=== PATIENT | female | born 1990 | race Caucasian/White ===

== ENCOUNTER 2021-05-15 15:48 | Inpatient (IN) ==
[2021-05-15] MEDS ORDERED: OXYTOCIN 30 UNITS/500 ML BAG IV PRN (16:55)
[2021-05-15 17:21] LABS: Hematocrit (blood only) 35.9 % (37-47); Hemoglobin 12.5 g/dL (12.0-16.0); Mean Corpuscular Hemoglobin 31.1 pg (25-34); Mean Corpuscular Hgb Conc 34.8 g/dL (32-36); Mean Corpuscular Volume 89.3 fL (80-100); Mean Platelet Volume 10.7 fL (7.4-10.4); Platelet Count 311 K/uL (130-400); RDW Coefficient of Variation 12.2 % (11.5-14.5); RDW Standard Deviation 39.3 fL (36.4-46.3); Red Blood Count 4.02 M/uL (4.2-5.4); White Blood Count 11.64 K/uL (4.8-10.8)
[2021-05-15 17:31] LABS: INR 0.9 (0.9-1.1); Prothrombin Time 8.9 Seconds (9.0-12.0)
[2021-05-15 17:39] LABS: Alanine Aminotransferase 324 (12-78); Albumin Level 2.2 gm/dl (3.4-5.0); Aspartate Aminotransferase 201 U/L (15-37); BUN Creatinine Ratio 9.4 (10-20); Blood Urea Nitrogen 5 mg/dl (7-18); Calcium 8.3 mg/dl (8.5-10.1); Carbon Dioxide 20 mmol/L (21-32); Chloride 110 mmol/L (98-107); Glucose 97 mg/dl (70-99); Potassium 3.5 mmol/L (3.5-5.1); Sodium 138 mmol/L (136-145)
[2021-05-15 17:42] LABS: Albumin Globulin Ratio 0.5 (0.9-2); Alkaline Phosphatase 243 U/L (45-117); Globulin 4.3 gm/dl (2.5-4.0); Total Protein 6.5 gm/dl (6.4-8.2)
[2021-05-15 18:22] LABS: Bilirubin,Total 0.5 mg/dl (0.2-1)
--- NOTE | 2021-05-15 19:45 | Ultrasound Report ---
US liver CLINICAL HISTORY: elevated liver enzymes in COMPARISON STUDY: No previous studies for comparison. TECHNIQUE: Sonography of the right upper quadrant was performed. FINDINGS: No hepatic lesions are identified. There is no biliary ductal dilatation. The common bile d uct measures 4 mm in caliber. Gallbladder is contracted. This likely accounts for mild gallbladder wa ll thickening. No gallstones are identified. There is no evidence for acute cholecystitis. No sonogra phic Dodge sign was elicited. Pancreas is obscured. There is mild right hydronephrosis. IMPRESSION: 1. No gallstones or biliary ductal dilatation. Contracted gallbladder. 2. Mild right hydronephrosis which may be due to mass effect upon the ureter by the gravid uterus. 3. Obscured pancreas. ACT 112: Negative or not required by law. Electronically signed by: Varun Jessica M.D. 05/15/2021 7:44 PM
[2021-05-15] MEDS ORDERED: diphenhydrAMINE Capsule 25 MG CAP PO PRN (20:48)
--- NOTE | 2021-05-15 21:07 | History & Physical Report ---
Date of Service May 15, 2021 Assessment & Plan (1) Intrahepatic cholestasis of : Plan: Repeat CMP, will check CBC, PT/PTT/INR. Liver ultrasound to r/o liver pathology is normal. However, due to patient's symptomatic presentation with itching and her normal BP, platelets and glucose, ICP is most likely diagnosis. Patient is agreeable to IOL. Pearson bulb placed, insufflated to 35cc sterile water. Tolerated well. Patient agreeable to pitocin with pearson, however at this time due to nursing staffing unable to start this - will start as soon as able tonight. Admission and Anticipated Discharge Date Admission Date: May 15, 2021 History of Present Illness Chief Complaint: itching Primary Care Provider: Ascencion Berry DO 31yo @ 39 08/30, presented to office today with itching "all over," underwent lab testing and was found to have elevated liver enzymes. No further symptoms - denies HURST, RUQ pain, LE edema, nausea, vomiting. Eating/drinking well. + movement, no vaginal bleeding, no leaking fluid. Allergies Allergy/AdvReac Type Severity Reaction Status Date / Time No Known Allergies Allergy Verified 05/15/21 10:55 Home Medications Medication Instructions Recorded Confirmed Type mecobalamin (vitamin B12) PO 10/16/20 05/15/21 History prenat.vits,kemi,[id number] 1 tab PO DAILY 10/16/20 05/15/21 History sertraline 50 mg tablet (Zoloft) 50 mg PO DAILY 10/16/20 05/15/21 History Patient History Medical History (Updated 05/15/21 @ 21:10 by Alyson Silverio DO) Depression Surgical History (Updated 10/16/20 @ 13:12 by Marla Soliman) S/P tonsillectomy Family History (Updated 10/16/20 @ 13:07 by Marla Soliman) Mother Thyroid disease Grandfather (Paternal) Colorectal cancer Social History (Updated 10/16/20 @ 13:09 by Marla Soliman) Smoking Status: Never smoker Hx Alcohol Use: No Hx Substance Use: No Preferred Language: Cook Islander Brass [employer]isher Required: No Beliefs That Will Affect Care: None marital status: marital status details: Raymon (37) [phone] Current Living Situation: Spouse Current Living Situation Comment: lives with spouse, 2 cats, some reptiles, spouse to change litter current occupational status: employed 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 No s/s chorio or abruption. Skin: no rashes, warm and dry Psychiatric: A+Ox3, euthymic affect Results & Data ([facility]) Vital Signs (Past 12 Hours) Vital Signs Temp Pulse Resp BP 05/15/21 19:02 36.9 C 81 18 123/75 05/15/21 16:59 37.3 C 18 05/15/21 16:17 83 128/83 Coding Level of Care Code None Diagnoses Intrahepatic cholestasis of O26.619; K83.1
[2021-05-16] MEDS ORDERED: OXYTOCIN 30 UNITS/500 ML BAG IV PRN (00:30)
[2021-05-16] MEDS: LACTATED RINGER'S 1,000 ML IV PRN ×5 (01:08→22:11)
[2021-05-16 06:22] LABS: Hematocrit (blood only) 33.9 % (37-47); Hemoglobin 11.6 g/dL (12.0-16.0); Mean Corpuscular Hemoglobin 30.9 pg (25-34); Mean Corpuscular Hgb Conc 34.2 g/dL (32-36); Mean Corpuscular Volume 90.2 fL (80-100); Mean Platelet Volume 10.6 fL (7.4-10.4); Platelet Count 318 K/uL (130-400); RDW Coefficient of Variation 12.4 % (11.5-14.5); RDW Standard Deviation 40.6 fL (36.4-46.3); Red Blood Count 3.76 M/uL (4.2-5.4); White Blood Count 11.89 K/uL (4.8-10.8)
[2021-05-16 06:52] LABS: Albumin Level 2.3 gm/dl (3.4-5.0); BUN Creatinine Ratio 9.3 (10-20); Calcium 8.8 mg/dl (8.5-10.1); Creatinine Clr Calc Pharmacy 201.5 ml/min; Est GFR (Non-African American) 122.5 ml/min; Potassium 3.6 mmol/L (3.5-5.1)
[2021-05-16 06:55] LABS: Albumin Globulin Ratio 0.5 (0.9-2); Bilirubin,Total 0.8 mg/dl (0.2-1); Globulin 4.2 gm/dl (2.5-4.0); Total Protein 6.5 gm/dl (6.4-8.2)
--- NOTE | 2021-05-16 07:35 | Labor Progress Brief Note ---
Date of Service May 16, 2021 Subjective Ramos bulb fell out overnight. FHT Cat 1 Kaser Q 2-3 Continue pitocin. Repeat CBC/CMP this morning show elevated LFTs continuing - slightly higher than yesterday. Assessment & Plan Admission and Anticipated Discharge Date Admission Date: May 15, 2021 Results & Data ([facility]) Vital Signs (Past 12 Hours) Vital Signs Temp Pulse Resp BP 05/16/21 07:12 55 L 135/77 05/16/21 06:11 62 115/66 05/16/21 05:11 62 127/73 05/16/21 04:11 65 136/78 05/16/21 03:13 65 124/79 05/16/21 02:11 64 130/73 05/16/21 01:11 68 125/69 05/15/21 22:49 36.8 C 77 18 124/70 Coding Level of Care Code None
[2021-05-16] MEDS ORDERED: CALCIUM CARBONATE 500 MG CHEWABLE TAB PO PRN (09:17)
--- NOTE | 2021-05-16 09:40 | Labor Progress Brief Note ---
Date of Service May 16, 2021 Subjective noting contractions but tolerating. Assessment & Plan (1) Intrahepatic cholestasis of : (2) Elevated transaminase level: Plan: LFTs elevated slightly more this am. She remains asymptomatic from pet standpoint. NOtes her itching is improved. Fetus category one. Discussion with Dr. Silverio this am and plan to order hepatitis panel to r/o. No contacts and no s/s but for completeness sake. Plan arom when appropriate. Admission and Anticipated Discharge Date Admission Date: May 15, 2021 Physical Exam Physical Exam: cx--deferred toco--q3-4min, pit at 8 efm--120s with mod varibility, accels to 150s, no decels Results & Data ([facility]) Vital Signs (Past 12 Hours) Vital Signs Temp Pulse Resp BP 05/16/21 09:09 99 H 131/79 05/16/21 08:11 72 130/80 05/16/21 07:52 68 137/75 05/16/21 07:45 69 20 137/75 05/16/21 07:30 36.7 C 55 L 18 135/77 05/16/21 07:12 55 L 135/77 05/16/21 06:11 62 115/66 05/16/21 05:11 62 127/73 05/16/21 04:11 65 136/78 05/16/21 03:13 65 124/79 05/16/21 02:11 64 130/73 05/16/21 01:11 68 125/69 05/15/21 22:49 36.8 C 77 18 124/70 Coding Level of Care Code None Diagnoses Intrahepatic cholestasis of O26.619; K83.1 Elevated transaminase level R74.01
[2021-05-16 11:38] LABS: Hepatitis B Surf Ag Rflx Conf Neg (Neg)
[2021-05-16 12:06] LABS: Hepatitis C IgG 13Yrs+Old_Rflx Neg (Neg)
--- NOTE | 2021-05-16 12:20 | Labor Progress Brief Note ---
Date of Service May 16, 2021 Subjective noting contractions but not painful Assessment & Plan (1) Elevated transaminase level: (2) Intrahepatic cholestasis of : Plan: continue current management. fetus category one. epidural on demand. anticipate . Admission and Anticipated Discharge Date Admission Date: May 15, 2021 Physical Exam Physical Exam: cx--75/-2 arom--minimal old blood and clear fluid [id number], pit at 14 wfm--130s with mod variaiblity, accels to 170s, no decels Results & Data ([facility]) Vital Signs (Past 12 Hours) Vital Signs Temp Pulse Resp BP 05/16/21 11:56 82 136/72 05/16/21 11:30 18 05/16/21 11:26 80 133/62 05/16/21 10:56 86 133/80 05/16/21 10:55 36.9 C 81 18 134/80 05/16/21 10:48 81 134/80 05/16/21 10:26 81 136/95 05/16/21 10:01 61 18 122/76 05/16/21 09:55 75 122/76 05/16/21 09:15 99 H 18 131/79 05/16/21 09:09 99 H 18 131/79 05/16/21 08:45 72 18 05/16/21 08:15 72 18 130/80 05/16/21 08:11 72 130/80 05/16/21 07:52 68 137/75 05/16/21 07:45 69 20 137/75 05/16/21 07:30 36.7 C 55 L 18 135/77 05/16/21 07:15 36.7 C 55 L 18 135/77 05/16/21 07:12 55 L 135/77 05/16/21 06:11 62 115/66 05/16/21 05:11 62 127/73 05/16/21 04:11 65 136/78 05/16/21 03:13 65 124/79 05/16/21 02:11 64 130/73 05/16/21 01:11 68 125/69 Coding Level of Care Code None Diagnoses Elevated transaminase level R74.01 Intrahepatic cholestasis of O26.619; K83.1
[2021-05-16] MEDS ORDERED: fentaNYL 2MCG/ML ROPIVACAINE 1.25MG/ML 100 ML BAG EPI ONE (14:02)
[2021-05-16] MEDS ORDERED: BUPIVACAINE 0.25% 30 ML VIAL ONE (14:02)
[2021-05-16] MEDS ORDERED: ePHEDrine sulfate 50 MG/ML AMP ONE (14:02)
[2021-05-16] MEDS ORDERED: fentaNYL citrate 100 MCG/2 ML VIAL ONE (14:02)
[2021-05-16] MEDS ORDERED: SODIUM CHLORIDE 0.9% INJ 10 ML VIAL ONE (14:02)
--- NOTE | 2021-05-16 14:28 | Anesthesiology Consultation ---
Date of Service May 16, 2021 Assessment & Plan (1) Encounter for pre-operative examination: Chart Review Chart Review: Acceptable Risk for Labor Epidural History Height/Weight Height: 5 ft 10 in Weight: 131.696 kg Allergies Allergy/AdvReac Type Severity Reaction Status Date / Time No Known Allergies Allergy Verified 05/15/21 10:55 Medications Home Medications Medication Instructions Recorded Confirmed Last Taken mecobalamin (vitamin B12) PO 10/16/20 05/15/21 05/15/21 08:00 prenat.vits,kemi,ggw-btee-ceywe 1 tab PO DAILY 10/16/20 05/15/21 05/15/21 08:00 sertraline 50 mg tablet (Zoloft) 50 mg PO DAILY 10/16/20 05/15/21 05/15/21 08:00 Active Medications Generic Name Dose Route Start Last Admin Trade Name Freq PRN Reason Stop Dose Admin Calcium Carbonate 500 mg 05/16/21 09:17 05/16/21 09:33 Calcium Carbonate 500 Mg Chewable Tab PO 06/15/21 09:16 500 mg Q4 PRN Administration Indigestion Lactated Ringer's 1,000 mls @ 125 mls/hr 05/15/21 16:55 05/16/21 14:12 Lr IV 05/17/21 16:54 999 mls/hr .Q8H PRN Administration L&D Protocol Protocol Oxytocin 30 units in 500 mls @ 12 mls/hr 05/16/21 00:30 05/16/21 10:45 Pitocin IV 05/18/21 00:29 0.72 units/hr .Q24H PRN 12 mls/hr Labor Induction/Augmentation Titration Protocol 0.72 UNITS/HR Past Medical History Medical History Depression Past Family History Family History Mother Thyroid disease Grandfather (Paternal) Colorectal cancer Past Surgical History Surgical History S/P tonsillectomy Social History Smoking Status: Never smoker Hx Alcohol Use: No Hx Substance Use: No substance use type: does not use Physical Exam Vital Signs Last Vital Signs Temp 36.9 C 05/16/21 10:55 Pulse 84 05/16/21 14:23 Resp 18 05/16/21 13:27 BP 132/69 05/16/21 13:57 Pulse Ox 100 05/16/21 14:23 Testing Laboratory Results 05/16/21 05:58 05/16/21 05:58 PT 8.9 Seconds (9.0-12.0) L 05/15/21 17:09 INR 0.9 (0.9-1.1) 05/15/21 17:09
[2021-05-16] MEDS ORDERED: NALOXONE HCL 0.4 MG/1 ML VIAL/CARP IV PRN (15:07)
[2021-05-16] MEDS ORDERED: ONDANSETRON INJ 2 MG/ML 2 ML VIAL IV PRN (15:07)
[2021-05-16] MEDS ORDERED: ePHEDrine sulfate 50 MG/ML AMP IV PRN (15:07)
[2021-05-16] MEDS ORDERED: NALOXONE HCL 1 MG in SODIUM CHLORIDE 0.9% 1000ML 1,000 ML IV PRN (15:07)
[2021-05-16] MEDS ORDERED: fentaNYL 2MCG/ML ROPIVACAINE 1.25MG/ML 100 ML BAG EPI PRN (15:07)
--- NOTE | 2021-05-16 17:59 | Labor Progress Brief Note ---
Date of Service May 16, 2021 Subjective Got painful and got redosed. comfortable Assessment & Plan (1) Intrahepatic cholestasis of : (2) Elevated transaminase level: Plan: hopefully on the edge of active labor. iupc placed. fetus category one. continue current management. Admission and Anticipated Discharge Date Admission Date: May 15, 2021 Physical Exam Physical Exam: cx--5-6/90/-2 iupc placed toco--2-4min, pit at 18 efm--130s with mod variability, accels to 150s, no decels Results & Data ([facility]) Vital Signs (Past 12 Hours) Vital Signs Temp Pulse Resp BP Pulse Ox 05/16/21 17:53 90 100 05/16/21 17:49 99 H 118/68 05/16/21 17:48 109 H 100 05/16/21 17:43 92 H 99 05/16/21 17:38 87 118/62 100 05/16/21 17:33 105 H 117/61 100 05/16/21 17:31 88 118/62 05/16/21 17:28 102 H 118/61 100 05/16/21 17:23 91 H 118/62 100 05/16/21 17:18 84 100 05/16/21 17:13 95 H 110/62 99 05/16/21 17:08 96 H 99 05/16/21 17:03 89 100 05/16/21 16:59 94 H 115/66 05/16/21 16:58 89 99 05/16/21 16:48 92 H 100 05/16/21 16:43 88 109/65 100 05/16/21 16:39 88 116/68 05/16/21 16:38 92 H 99 05/16/21 16:33 81 100 05/16/21 16:28 94 H 99 05/16/21 16:23 84 99 05/16/21 16:18 98 H 100 05/16/21 16:13 85 129/62 100 05/16/21 16:10 81 18 122/63 100 05/16/21 16:08 88 122/63 100 05/16/21 16:03 74 99 05/16/21 16:02 36.3 C L 91 H 20 127/69 100 05/16/21 15:58 91 H 100 05/16/21 15:57 75 123/65 05/16/21 15:53 96 H 99 05/16/21 15:52 77 123/64 05/16/21 15:48 89 98 05/16/21 15:47 79 126/64 05/16/21 15:45 73 128/65 05/16/21 15:43 82 100 05/16/21 15:38 75 99 05/16/21 15:37 93 H 126/67 05/16/21 15:33 78 126/66 100 05/16/21 15:28 78 100 05/16/21 15:25 89 118/67 05/16/21 15:23 80 115/63 100 05/16/21 15:21 80 112/60 05/16/21 15:19 84 121/64 05/16/21 15:18 84 100 05/16/21 15:17 83 118/62 05/16/21 15:15 79 115/58 L 05/16/21 15:13 80 118/57 L 100 05/16/21 15:11 82 117/59 L 05/16/21 15:09 79 120/62 05/16/21 15:08 83 100 05/16/21 15:07 78 125/65 05/16/21 15:06 79 18 124/63 100 05/16/21 15:05 79 124/63 05/16/21 15:03 74 100 05/16/21 15:02 75 126/65 05/16/21 15:00 18 05/16/21 14:58 81 100 05/16/21 14:56 75 144/90 H 05/16/21 14:53 110 H 100 05/16/21 14:48 77 100 05/16/21 14:43 91 H 100 05/16/21 14:38 76 100 05/16/21 14:33 78 100 05/16/21 14:29 79 135/74 05/16/21 14:28 86 100 05/16/21 14:23 84 100 05/16/21 14:18 86 100 05/16/21 13:57 68 132/69 05/16/21 13:27 18 05/16/21 13:26 76 145/75 H 05/16/21 13:25 20 05/16/21 13:00 18 05/16/21 12:57 69 136/68 05/16/21 12:26 58 L 18 133/76 05/16/21 11:56 82 136/72 05/16/21 11:30 18 05/16/21 11:26 80 133/62 05/16/21 10:56 86 133/80 05/16/21 10:55 36.9 C 81 18 134/80 05/16/21 10:48 81 134/80 05/16/21 10:26 81 136/95 05/16/21 10:01 61 18 122/76 05/16/21 09:55 75 122/76 05/16/21 09:15 99 H 18 131/79 05/16/21 09:09 99 H 18 131/79 05/16/21 08:45 72 18 05/16/21 08:15 72 18 130/80 05/16/21 08:11 72 130/80 05/16/21 07:52 68 137/75 05/16/21 07:45 69 20 137/75 05/16/21 07:30 36.7 C 55 L 18 135/77 05/16/21 07:15 36.7 C 55 L 18 135/77 05/16/21 07:12 55 L 135/77 05/16/21 06:11 62 115/66 Coding Level of Care Code None Diagnoses Intrahepatic cholestasis of O26.619; K83.1 Elevated transaminase level R74.01
[2021-05-16 18:16] LABS: Hematocrit (blood only) 39.4 % (37-47); Hemoglobin 13.6 g/dL (12.0-16.0); Mean Corpuscular Hgb Conc 34.5 g/dL (32-36); Mean Corpuscular Volume 89.7 fL (80-100); Mean Platelet Volume 10.7 fL (7.4-10.4); Platelet Count 324 K/uL (130-400); RDW Coefficient of Variation 12.3 % (11.5-14.5); RDW Standard Deviation 39.8 fL (36.4-46.3); Red Blood Count 4.39 M/uL (4.2-5.4); White Blood Count 18.47 K/uL (4.8-10.8)
[2021-05-16 18:33] LABS: Albumin Level 2.3 gm/dl (3.4-5.0); BUN Creatinine Ratio 7.4 (10-20); Calcium 8.9 mg/dl (8.5-10.1); Creatinine Clr Calc Pharmacy 175.6 ml/min; Est GFR (African American) 135.7 ml/min; Est GFR (Non-African American) 117.1 ml/min; Potassium 3.8 mmol/L (3.5-5.1)
[2021-05-16 18:36] LABS: Albumin Globulin Ratio 0.5 (0.9-2); Bilirubin,Total 0.8 mg/dl (0.2-1); Globulin 4.5 gm/dl (2.5-4.0); Total Protein 6.8 gm/dl (6.4-8.2)
[2021-05-16] MEDS ORDERED: NURSING L&D Epidural Breakthrough Pain Update ONE (19:19)
--- NOTE | 2021-05-16 20:27 | Labor Progress Brief Note ---
Date of Service May 16, 2021 Subjective comfortable Assessment & Plan (1) Encounter for pre-operative examination: (2) Elevated transaminase level: Plan: continue current management. Has made a bit of cervical change. LFts are still going up . Bps are normal. All other labs are wnl. Will continue to monitor closely. fetus category one Admission and Anticipated Discharge Date Admission Date: May 15, 2021 Physical Exam Physical Exam: cx--6-7/100/-2 toco--q2-4min, pit at 18, mvus between 225-275 efm--130s with mod variability, accels to 160s, no decels Results & Data ([facility]) Vital Signs (Past 12 Hours) Vital Signs Temp Pulse Resp BP Pulse Ox 05/16/21 20:23 90 98 05/16/21 20:18 92 H 99 05/16/21 20:17 97 H 91 05/16/21 20:13 105 H 99 05/16/21 20:08 102 H 100 05/16/21 20:03 103 H 100 05/16/21 20:00 95 H 121/73 05/16/21 19:58 103 H 100 05/16/21 19:53 99 H 100 05/16/21 19:48 94 H 100 05/16/21 19:43 99 H 94 05/16/21 19:42 90 89 L 05/16/21 19:40 99 H 122/78 05/16/21 19:38 114 H 99 05/16/21 19:36 92 H 90 05/16/21 19:33 89 100 05/16/21 19:30 36.6 C 18 98 05/16/21 19:28 105 H 98 05/16/21 19:23 101 H 100 05/16/21 19:19 111 H 126/73 05/16/21 19:18 99 H 80 L 05/16/21 19:17 112 H 93 05/16/21 19:13 95 H 100 05/16/21 19:08 102 H 100 05/16/21 19:03 92 H 100 05/16/21 19:00 97 H 121/73 05/16/21 18:58 115 H 98 05/16/21 18:53 119 H 100 05/16/21 18:48 117 H 100 05/16/21 18:45 119 H 92 05/16/21 18:43 115 H 100 05/16/21 18:38 115 H 100 05/16/21 18:36 118 H 111/71 05/16/21 18:33 118 H 100 05/16/21 18:28 118 H 99 05/16/21 18:23 113 H 100 05/16/21 18:20 116 H 114/63 05/16/21 18:18 131 H 98 05/16/21 18:13 137 H 100 05/16/21 18:08 123 H 99 05/16/21 18:03 117 H 100 05/16/21 17:58 109 H 100 05/16/21 17:53 90 100 05/16/21 17:49 99 H 118/68 05/16/21 17:48 109 H 100 05/16/21 17:43 92 H 99 05/16/21 17:38 87 118/62 100 05/16/21 17:35 20 100 05/16/21 17:33 105 H 117/61 100 05/16/21 17:31 88 118/62 05/16/21 17:30 20 05/16/21 17:28 102 H 118/61 100 05/16/21 17:25 20 05/16/21 17:23 91 H 118/62 100 05/16/21 17:20 18 99 05/16/21 17:18 84 100 05/16/21 17:13 95 H 110/62 99 05/16/21 17:08 96 H 99 05/16/21 17:03 89 100 05/16/21 16:59 94 H 115/66 05/16/21 16:58 89 99 05/16/21 16:48 92 H 100 05/16/21 16:43 88 109/65 100 05/16/21 16:39 88 116/68 05/16/21 16:38 92 H 99 05/16/21 16:33 81 100 05/16/21 16:28 94 H 99 05/16/21 16:23 84 99 05/16/21 16:18 98 H 100 05/16/21 16:13 85 129/62 100 05/16/21 16:10 81 18 122/63 100 05/16/21 16:08 88 122/63 100 05/16/21 16:03 74 99 05/16/21 16:02 36.3 C L 91 H 20 127/69 100 05/16/21 15:58 91 H 100 05/16/21 15:57 75 123/65 05/16/21 15:53 96 H 99 05/16/21 15:52 77 123/64 05/16/21 15:48 89 98 05/16/21 15:47 79 126/64 05/16/21 15:45 73 128/65 05/16/21 15:43 82 100 05/16/21 15:38 75 99 05/16/21 15:37 93 H 126/67 05/16/21 15:33 78 126/66 100 05/16/21 15:28 78 100 05/16/21 15:25 89 118/67 05/16/21 15:23 80 115/63 100 05/16/21 15:21 80 112/60 05/16/21 15:19 84 121/64 05/16/21 15:18 84 100 05/16/21 15:17 83 118/62 05/16/21 15:15 79 115/58 L 05/16/21 15:13 80 118/57 L 100 05/16/21 15:11 82 117/59 L 05/16/21 15:09 79 120/62 05/16/21 15:08 83 100 05/16/21 15:07 78 125/65 05/16/21 15:06 79 18 124/63 100 05/16/21 15:05 79 124/63 05/16/21 15:03 74 100 05/16/21 15:02 75 126/65 05/16/21 15:00 18 05/16/21 14:58 81 100 05/16/21 14:56 75 144/90 H 05/16/21 14:53 110 H 100 05/16/21 14:48 77 100 05/16/21 14:43 91 H 100 05/16/21 14:38 76 100 05/16/21 14:33 78 100 05/16/21 14:29 79 135/74 05/16/21 14:28 86 100 05/16/21 14:23 84 100 05/16/21 14:18 86 100 05/16/21 13:57 68 132/69 05/16/21 13:27 18 05/16/21 13:26 76 145/75 H 05/16/21 13:25 20 05/16/21 13:00 18 05/16/21 12:57 69 136/68 05/16/21 12:26 58 L 18 133/76 05/16/21 11:56 82 136/72 05/16/21 11:30 18 05/16/21 11:26 80 133/62 05/16/21 10:56 86 133/80 05/16/21 10:55 36.9 C 81 18 134/80 05/16/21 10:48 81 134/80 05/16/21 10:26 81 136/95 05/16/21 10:01 61 18 122/76 05/16/21 09:55 75 122/76 05/16/21 09:15 99 H 18 131/79 05/16/21 09:09 99 H 18 131/79 05/16/21 08:45 72 18 Coding Level of Care Code None Diagnoses Encounter for pre-operative examination Z01.818 Elevated transaminase level R74.01
--- NOTE | 2021-05-16 21:28 | Labor Progress Brief Note ---
Date of Service May 16, 2021 Subjective Patient became suddenly uncomfortable again. anesthesia now in the room assessing the patient. Assessment & Plan (1) Encounter for pre-operative examination: (2) Elevated transaminase level: Plan: IN active labor. Will try to get pain under control. Fetus still reassuring. Admission and Anticipated Discharge Date Admission Date: May 15, 2021 Physical Exam Physical Exam: cx--9/100/-1 toco--q2-3min, mvus adequate efm--140s with mod variability, accels to 170s, no decels Results & Data ([facility]) Vital Signs (Past 12 Hours) Vital Signs Temp Pulse Resp BP Pulse Ox 05/16/21 21:24 115 H 134/94 05/16/21 21:23 125 H 99 05/16/21 21:18 129 H 145/90 H 97 05/16/21 21:13 130 H 100 05/16/21 21:08 88 100 05/16/21 21:03 90 100 05/16/21 21:01 116 H 173/109 H 05/16/21 20:58 96 H 99 05/16/21 20:53 93 H 100 05/16/21 20:48 85 100 05/16/21 20:43 82 100 05/16/21 20:39 83 134/83 05/16/21 20:38 96 H 100 05/16/21 20:33 89 100 05/16/21 20:28 83 100 05/16/21 20:26 86 92 05/16/21 20:23 90 98 05/16/21 20:18 92 H 99 05/16/21 20:17 97 H 91 05/16/21 20:13 105 H 99 05/16/21 20:08 102 H 100 05/16/21 20:03 103 H 100 05/16/21 20:00 95 H 121/73 05/16/21 19:58 103 H 100 05/16/21 19:53 99 H 100 05/16/21 19:48 94 H 100 05/16/21 19:43 99 H 94 05/16/21 19:42 90 89 L 05/16/21 19:40 99 H 122/78 05/16/21 19:38 114 H 99 05/16/21 19:36 92 H 90 05/16/21 19:33 89 100 05/16/21 19:30 36.6 C 18 98 05/16/21 19:28 105 H 98 05/16/21 19:23 101 H 100 05/16/21 19:19 111 H 126/73 05/16/21 19:18 99 H 80 L 05/16/21 19:17 112 H 93 05/16/21 19:13 95 H 100 05/16/21 19:08 102 H 100 05/16/21 19:03 92 H 100 05/16/21 19:00 97 H 121/73 05/16/21 18:58 115 H 98 05/16/21 18:53 119 H 100 05/16/21 18:48 117 H 100 05/16/21 18:45 119 H 92 05/16/21 18:43 115 H 100 05/16/21 18:38 115 H 100 05/16/21 18:36 118 H 111/71 05/16/21 18:33 118 H 100 05/16/21 18:28 118 H 99 05/16/21 18:23 113 H 100 05/16/21 18:20 116 H 114/63 05/16/21 18:18 131 H 98 05/16/21 18:13 137 H 100 05/16/21 18:08 123 H 99 05/16/21 18:03 117 H 100 05/16/21 17:58 109 H 100 05/16/21 17:53 90 100 05/16/21 17:49 99 H 118/68 05/16/21 17:48 109 H 100 05/16/21 17:43 92 H 99 05/16/21 17:38 87 118/62 100 05/16/21 17:35 20 100 05/16/21 17:33 105 H 117/61 100 05/16/21 17:31 88 118/62 05/16/21 17:30 20 05/16/21 17:28 102 H 118/61 100 05/16/21 17:25 20 05/16/21 17:23 91 H 118/62 100 05/16/21 17:20 18 99 05/16/21 17:18 84 100 05/16/21 17:13 95 H 110/62 99 05/16/21 17:08 96 H 99 05/16/21 17:03 89 100 05/16/21 16:59 94 H 115/66 05/16/21 16:58 89 99 05/16/21 16:48 92 H 100 05/16/21 16:43 88 109/65 100 05/16/21 16:39 88 116/68 05/16/21 16:38 92 H 99 05/16/21 16:33 81 100 05/16/21 16:28 94 H 99 05/16/21 16:23 84 99 05/16/21 16:18 98 H 100 05/16/21 16:13 85 129/62 100 05/16/21 16:10 81 18 122/63 100 05/16/21 16:08 88 122/63 100 05/16/21 16:03 74 99 05/16/21 16:02 36.3 C L 91 H 20 127/69 100 05/16/21 15:58 91 H 100 05/16/21 15:57 75 123/65 05/16/21 15:53 96 H 99 05/16/21 15:52 77 123/64 05/16/21 15:48 89 98 05/16/21 15:47 79 126/64 05/16/21 15:45 73 128/65 05/16/21 15:43 82 100 05/16/21 15:38 75 99 05/16/21 15:37 93 H 126/67 05/16/21 15:33 78 126/66 100 05/16/21 15:28 78 100 05/16/21 15:25 89 118/67 05/16/21 15:23 80 115/63 100 05/16/21 15:21 80 112/60 05/16/21 15:19 84 121/64 05/16/21 15:18 84 100 05/16/21 15:17 83 118/62 05/16/21 15:15 79 115/58 L 05/16/21 15:13 80 118/57 L 100 05/16/21 15:11 82 117/59 L 05/16/21 15:09 79 120/62 05/16/21 15:08 83 100 05/16/21 15:07 78 125/65 05/16/21 15:06 79 18 124/63 100 05/16/21 15:05 79 124/63 05/16/21 15:03 74 100 05/16/21 15:02 75 126/65 05/16/21 15:00 18 05/16/21 14:58 81 100 05/16/21 14:56 75 144/90 H 05/16/21 14:53 110 H 100 05/16/21 14:48 77 100 05/16/21 14:43 91 H 100 05/16/21 14:38 76 100 05/16/21 14:33 78 100 05/16/21 14:29 79 135/74 05/16/21 14:28 86 100 05/16/21 14:23 84 100 05/16/21 14:18 86 100 05/16/21 13:57 68 132/69 05/16/21 13:27 18 05/16/21 13:26 76 145/75 H 05/16/21 13:25 20 05/16/21 13:00 18 05/16/21 12:57 69 136/68 05/16/21 12:26 58 L 18 133/76 05/16/21 11:56 82 136/72 05/16/21 11:30 18 05/16/21 11:26 80 133/62 05/16/21 10:56 86 133/80 05/16/21 10:55 36.9 C 81 18 134/80 05/16/21 10:48 81 134/80 05/16/21 10:26 81 136/95 05/16/21 10:01 61 18 122/76 05/16/21 09:55 75 122/76 Coding Level of Care Code None Diagnoses Encounter for pre-operative examination Z01.818 Elevated transaminase level R74.01
[2021-05-17] MEDS ORDERED: ACETAMINOPHEN 325 MG TAB PO PRN (01:22)
[2021-05-17] MEDS ORDERED: bisacodyL 10 MG SUPP PR PRN (01:22)
[2021-05-17] MEDS ORDERED: oxyCODONE/ACETAMINOPHEN 5mg/325mg TAB PO PRN (01:22)
[2021-05-17] MEDS ORDERED: BENZOCAINE 20% AER SPR 82.5 GM CAN EXT PRN (01:22)
[2021-05-17] MEDS ORDERED: OXYTOCIN 30 UNITS/500 ML BAG IV PRN (01:22)
[2021-05-17] MEDS ORDERED: HYDROCORTISONE ACETATE 25 MG SUPP PR PRN (01:22)
[2021-05-17] MEDS ORDERED: SUPERCREAM 0.870% 15 GM JAR EXT PRN (01:22)
[2021-05-17] MEDS ORDERED: DIPHTHERIA/TETANUS/PERTUSSIS 0.5 ML SYR/VIAL IM ONE (01:22)
--- NOTE | 2021-05-17 01:29 | Delivery Summary ---
Vaginal Delivery Summary Date of Service May 17, 2021 Vaginal Delivery Summary and 2nd Degree LAC Pre-operative Diagnosis: at 37 6/7 weeks suspected ICP Post-operative Diagnosis: same Procedure: pearson bulb for cervical ripening pitocin induction arom epidural iupc repair of second degree laceration EBL: 400cc Anesthesia: epidural Procedure: Patient presented to labor and delivery after coming in for her 37 week visit complaining of itching all over but jacinta hands and feet. LFTS and bile acids drawn. Lfts were significantly elevated. She had no s/s of pet and all other labs were normal. She had a normal liver ultrasound. Suspected ICP and given 37+ weeks recommended induction. She had an unfavorable cervix so a pearson bulb was placed and subsequently pitocin was started. The pearson bulb fell out and pit was continued. When she was 4 cm she underwent rom for clear fluid. She then got an epidural that needed to be redosed several times. She eventually needed an iupc at 5-6 cm that demonstrated adequate contractions. At one point the pit was d/c secondary to patient discomfort until the epidural was redosed. Then restarted pit once more comfortable. She did eventually become complete. The patient pushed for 20 minutes to deliver a viable male infant in maria guadalupe position. The nose and mouth were bulb suctioned on the perineum and the rest of the infant was then delivered without difficulty. The baby was vigoro us. The nose and mouth were again bulb suctioned and the was placed in the maternal abdomen for drying and attention. Cord was clamped and cut at one minute of life. Cord blood and segment obtained. Placenta delivered spontaneous, intact with a three vessel cord. Cervix/sulci/rectum were intact. A second degree perineal laceration was repaired in the normal standard fashion. Hemostasis obtained with dilute pitocin and fundal massage. Apgars were 8/9. Mother and baby doing well at the end of the delivery. [facility] Vaginal Delivery Charge Delivery Type Details: and 2nd Degree LAC
[2021-05-17] MEDS: IBUPROFEN 600 MG TAB PO PRN ×4 (02:09→20:26)
[2021-05-17 05:16] LABS: Hepatitis A Antibody IgM NON-REACTIVE (NON-REACTIVE); Hepatitis B Core Antibody IgM NON-REACTIVE (NON-REACTIVE)
[2021-05-17 07:50] LABS: Hematocrit (blood only) 33.2 % (37-47); Hemoglobin 11.3 g/dL (12.0-16.0); Mean Corpuscular Hemoglobin 30.8 pg (25-34); Mean Corpuscular Volume 90.5 fL (80-100); Mean Platelet Volume 10.6 fL (7.4-10.4); Platelet Count 314 K/uL (130-400); RDW Coefficient of Variation 12.4 % (11.5-14.5); RDW Standard Deviation 40.7 fL (36.4-46.3); Red Blood Count 3.67 M/uL (4.2-5.4); White Blood Count 21.96 K/uL (4.8-10.8)
--- NOTE | 2021-05-17 08:01 | Anesthesia Procedure Note ---
Date of Service May 17, 2021 Anesthesia Post Epidural Note Vital Signs Vital Signs: Temp Pulse Resp BP Pulse Ox 37.2 C 99 H 18 115/73 96 05/17/21 04:25 05/17/21 04:25 05/17/21 04:25 05/17/21 04:25 05/17/21 04:25 Pain Intensity Lower Back: Pain Intensity: 10 Bilateral Episiotomy/Laceration: Pain Intensity: 5 Notes Mental Status: alert / awake / arousable and participated in evaluation Patient Amnestic to Procedure: Yes Nausea / Vomiting: adequately controlled Pain: adequately controlled Airway Patency, RR, SpO2: stable & adequate BP & HR: stable & adequate Hydration State: stable & adequate Anesthetic Complications: no major complications apparent and Pt Satisfied with anesthetic care
[2021-05-17] MEDS: PRENATAL VITAMIN 1 TAB PO SCH (08:17)
[2021-05-17] MEDS: DOCUSATE SODIUM 100 MG CAP PO SCH ×2 (08:17→20:26)
[2021-05-17] MEDS: SERTRALINE HCL 50 MG TABLET PO SCH (08:18)
[2021-05-17 08:48] LABS: Albumin Globulin Ratio 0.5 (0.9-2); Albumin Level 1.9 gm/dl (3.4-5.0); BUN Creatinine Ratio 10.1 (10-20); Bilirubin,Total 0.9 mg/dl (0.2-1); Calcium 8.7 mg/dl (8.5-10.1); Creatinine Clr Calc Pharmacy 157.5 ml/min; Est GFR (African American) 119.1 ml/min; Est GFR (Non-African American) 102.7 ml/min; Globulin 4.1 gm/dl (2.5-4.0); Potassium 4.2 mmol/L (3.5-5.1)
[2021-05-18] MEDS: IBUPROFEN 600 MG TAB PO PRN ×3 (01:14→11:58)
--- NOTE | 2021-05-18 06:17 | Obstetrical Progress Note ---
Date of Service May 18, 2021 Assessment & Plan (1) Encounter for care and examination after delivery: Plan: 31 yo , now , PPD 1 s/p at 37 4/7 weeks -Expect D/C today. -LFTs in 5 weeks -Continue routine care -AST and ALT downtrending. Still greater than 2x the upper limit of normal. -Vitals reviewed- HDS, afebrile -O+, GBS-, Rubella immune -Encourage ambulation, regular diet -Pain control with ibuprofen, acetaminophen PRN -Encourage -F/u in [address] Laguna Admission and Anticipated Discharge Date Admission Date: May 15, 2021 Supervising Physician Co-Signing Physician Notes Resident Physician Supervision Note: I interviewed and examined the patient. Discussed with Dr. Alfaro and agree with findings and plan as documented in the note. Any exceptions or clarifications are listed here: doing well. lfts improved. will plan to check at about 5wk pp, ordered placed. pt aware. instructions reviewed, ready for d/c home. Documented By: Edna Sahu MD, FACOG Subjective PPD 1 s/p . Patient seen and examined at bedside. Reports no acute overnight events. Ambulating and voiding. Passing gas. Regular diet w/o N/V. Lochia small per patient. Breast feeding without complications. Pain 3/10. Reports itchiness is still present, especially on back and hands, but has significantly improved since delivery. Review of Systems Review of Systems: Denies fevers/chills. Denies dyspnea, cough. Denies chest pain. Denies breast pain or discharge. Denies dysuria. Denies headache. Denies back pain Physical Exam Physical Exam: General: Alert, oriented, no acute distress Cardiac: Regular rate and rhythm, normal S1, S2. No murmurs appreciated. Respiratory: Clear to auscultation b/l with good air flow entry, symmetric chest rise and fall. No wheezes or crackles. No increased work of breathing or accessory muscle use Abdomen: Soft, nontender, nondistended. Fundus firm and palpable at 2 cm below umbilicus. No guarding or rebound. Skin: No rashes or lesions Extremities: Warm, dry, well-perfused with capillary refill <2s b/l. No lower extremity edema, erythema or swelling. Negative Jairo's sign b/l. Results & Data ([facility]) Vital Signs (Past 12 Hours) Vital Signs Temp Pulse Resp BP Pulse Ox 05/17/21 23:20 36.7 C 94 H 20 134/85 99 05/17/21 21:15 36.6 C 85 18 123/84 99
[2021-05-18 06:39] LABS: Albumin Level 1.8 gm/dl (3.4-5.0); Bilirubin Direct 0.2 mg/dl (0-0.2); Bilirubin,Total 0.3 mg/dl (0.2-1); Total Protein 5.4 gm/dl (6.4-8.2)
[2021-05-18] MEDS: DOCUSATE SODIUM 100 MG CAP PO SCH (07:48)
[2021-05-18] MEDS: PRENATAL VITAMIN 1 TAB PO SCH (07:48)
[2021-05-18] MEDS: SERTRALINE HCL 50 MG TABLET PO SCH (07:49)
[2021-05-18] MEDS ORDERED: bisacodyL 5 MG TABEC PO SCH (20:00)
== END 2021-05-18 13:06 | disposition home or self-care (01) | DRG 805 ==
LOC: 4S1 15:48 → 4S2 05-17 03:45

== ENCOUNTER 2023-08-19 14:02 | Inpatient (IN) ==
--- NOTE | 2023-08-19 15:14 | Emergency Department Note ---
History of Present Illness General Chief complaint: Overdose (Intentional) Time Seen by Provider: 08/19/23 14:17 Source: patient, EMS and RN notes reviewed History of Present Illness Provider complaint: Overdose 33-year-old female presents emergency department for overdose. Reportedly the patient took 40 extra send Tylenol 1:15 PM and attempt to kill her self. She reports no other drugs or alcohol. No other ingestion. No chance of when the patient. Home Medications Medication Instructions Recorded Confirmed Type duloxetine 60 mg capsule,delayed 60 mg PO QAM #30 caps 07/28/23 Rx release Allergies Allergy/AdvReac Type Severity Reaction Status Date / Time No Known Allergies Allergy Verified 07/08/22 15:22 Past Med/Surg History Medical History Obesity Intrahepatic cholestasis of Depression Surgical History S/P tonsillectomy Family History Mother Thyroid disease Grandfather (Paternal) Colorectal cancer Family/Other Breast cancer Mat cousin, PGGM Denies family history of Ovarian cancer Social History Smoking Status: Never smoker Hx Alcohol Use: No Hx Substance Use: No Preferred Language: Slovak Communication Ability: Effective Supervisor Word Processing Required: No Beliefs That Will Affect Care: None marital status: marital status details: Raymon (37) [phone] Current Living Situation: Spouse Current Living Situation Comment: lives with spouse, 2 cats, some reptiles, spouse to change litter current occupational status: employed 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 [employer] Feels Safe at Home: Yes Gender Identity: Female Assistive Devices: Glasses Physical Exam Vital Signs Vital Signs - 24 hr 08/19/23 14:47 08/19/23 14:47 08/19/23 15:00 Pulse Rate 113 H 114 H Pulse Rate [Right Finger] Pulse Rhythm [Right Finger] Pulse Strength [Right Finger] Respiratory Rate 12 20 Respiratory Effort / Characteristics Non-Labored Respiratory Depth Normal Respiratory Pattern Blood Pressure 121/84 121/84 Blood Pressure [Right Arm] Blood Pressure Mean 96 96 Blood Pressure Mean [Right Arm] Pulse Oximetry 98 98 97 Oxygen Delivery Method Room Air Room Air Room Air Oxygen Flow Rate 0 Sepsis Recent Fever Within 48 Hours No Sepsis New/Unexplained Change in Mental Status N/A Sepsis Action Taken by Nursing No Action Required 08/19/23 15:37 08/19/23 15:42 08/19/23 16:53 Pulse Rate 123 H Pulse Rate [Right Finger] 114 H 112 H Pulse Rhythm [Right Finger] Pulse Strength [Right Finger] Respiratory Rate 16 16 Respiratory Effort / Characteristics Non-Labored Non-Labored Respiratory Depth Normal Normal Respiratory Pattern Blood Pressure Blood Pressure [Right Arm] 122/67 136/89 Blood Pressure Mean Blood Pressure Mean [Right Arm] 85 104 Pulse Oximetry 99 100 Oxygen Delivery Method Room Air Room Air Oxygen Flow Rate Sepsis Recent Fever Within 48 Hours Sepsis New/Unexplained Change in Mental Status Sepsis Action Taken by Nursing 08/19/23 18:12 08/19/23 18:44 08/19/23 19:13 Pulse Rate 111 H Pulse Rate [Right Finger] 112 H 105 H Pulse Rhythm [Right Finger] Regular Pulse Strength [Right Finger] Normal Respiratory Rate 10 L 19 Respiratory Effort / Characteristics Non-Labored Non-Labored Spontaneous Respiratory Depth Normal Normal Respiratory Pattern Regular Blood Pressure Blood Pressure [Right Arm] 124/83 144/99 H Blood Pressure Mean Blood Pressure Mean [Right Arm] 96 114 Pulse Oximetry 100 100 Oxygen Delivery Method Room Air Room Air Oxygen Flow Rate Sepsis Recent Fever Within 48 Hours Sepsis New/Unexplained Change in Mental Status Sepsis Action Taken by Nursing 08/19/23 20:33 Pulse Rate Pulse Rate [Right Finger] 110 H Pulse Rhythm [Right Finger] Regular Pulse Strength [Right Finger] Normal Respiratory Rate 19 Respiratory Effort / Characteristics Non-Labored Spontaneous Respiratory Depth Normal Respiratory Pattern Regular Blood Pressure Blood Pressure [Right Arm] 145/94 H Blood Pressure Mean Blood Pressure Mean [Right Arm] 111 Pulse Oximetry 100 Oxygen Delivery Method Room Air Oxygen Flow Rate Sepsis Recent Fever Within 48 Hours Sepsis New/Unexplained Change in Mental Status Sepsis Action Taken by Nursing Physical Exam GENERAL: Patient appears lethargic but when noxious stimuli applied patient alert oriented x 3 and able to give history. HENT: Exam performed. -Head: Normocephalic and atraumatic. -Right Ear: External ear normal. No mastoid erythema -Left Ear: External ear normal. No mastoid erythema -Mouth/Throat: The oropharynx is clear and moist. No trismus in the jaw. No dental abscesses or uvula swelling. No oropharyngeal exudate or tonsillar abscesses. EYES: Conjunctivae and EOM are normal. Pupils are equal, round, and reactive to light. Right eye exhibits no discharge. Left eye exhibits no discharge. No scleral icterus. NECK: Normal range of motion. Neck supple. No JVD present. CV: Tachycardic rate, regular rhythm, normal heart sounds and intact distal pulses. There is no peripheral edema. Palpable radial pulses bue. PULM/CHEST: Effort normal and breath sounds normal. No respiratory distress. No stridor. She has no wheezes. She has no rales. ABD: The abdomen is soft. There is no tenderness. There is no rebound, no guarding MUSC/SKEL: Normal range of motion. There is no peripheral edema, tenderness. NEURO: Motor and sensation grossly intact. SKIN: 5 cm laceration that is superficial over the patient's left wrist. Course Course 1417: The patient was evaluated in room A5. A complete history and physical exam was performed Cardiac monitoring: An order was placed for continuous cardiac monitoring. The monitor shows a rate of 120 with sinus tachycardia rhythm interpreted by me. 1517: Spoke with poison control. They recommend to give the patient 2 g of magnesium sulfate given the prolonged QTc.They recommend starting NAC therapy for the patient to recheck her Tylenol level 4 hours after ingestion which would be at 1715. They recommend keeping the magnesium greater than 2 and potassium greater than 4. 1715: is now at bedside and states he thinks that the patient might have taken Tylenol PM and that extra strength Tylenol. Laceration was repaired by BRYAN, 7 simple interrupted sutures were placed, see the procedure note. 1833: Labs are significant for potassium of 3.2. Potassium repletion will be started in the emergency department. 4-hour Tylenol level is 114. Spoke with poison control, and given that the patient overdose was not witnessed and is unclear exactly what she took as the is now saying that the patient took Tylenol PM and is unclear if the patient truly took these medications at 1315. Given this we will err on side of caution and treat the patient with NAC. Poison control also recommends given the patient Ativan 1 mg for possible diphenhydramine overdose if the patient did take Tylenol PM. Patient will be admitted to the [facility] service. Administered Medications Discontinued Medications Sodium Chloride (Nss) 1,000 mls @ 999 mls/hr IV .Q1H1M FARIBA Stop: 08/19/23 16:30 Last Infusion: 08/19/23 16:40 Dose: Infused Documented By: NRJohnny Admin: 08/19/23 15:39 Dose: 999 mls/hr Documented By: CHANDANA Acetylcysteine 11,250 mg/ (Dextrose) 256.25 mls @ 200 mls/hr IV ONCE ONE; Protocol Stop: 08/19/23 16:37 Last Infusion: 08/19/23 17:39 Dose: Infused Documented By: NRJohnny Admin: 08/19/23 16:22 Dose: 200 mls/hr Documented By: CHANDANA Acetylcysteine 3,750 mg/ (Dextrose) 518.75 mls @ 125 mls/hr IV ONCE ONE; Protocol Stop: 08/19/23 20:29 Last Admin: 08/19/23 17:41 Dose: 125 mls/hr Documented By: CHANDANA Magnesium Sulfate/Dextrose (Magnesium Sulfate / D5w) 1 gm in 100 mls @ 100 mls/hr IV Q1H FARIBA Stop: 08/19/23 17:22 Last Infusion: 08/19/23 17:57 Dose: Infused Documented By: Admin: 08/19/23 16:57 Dose: 100 mls/hr Documented By: Infusion: 08/19/23 16:39 Dose: Infused Documented By: Admin: 08/19/23 15:39 Dose: 100 mls/hr Documented By: CHANDANA Potassium Chloride (K John / Wtr) 10 meq in 100 mls @ 100 mls/hr IV Q1H FARIBA Stop: 08/19/23 20:44 Last Admin: 08/19/23 20:29 Dose: 100 mls/hr Documented By: Infusion: 08/19/23 20:29 Dose: Infused Documented By: Admin: 08/19/23 19:19 Dose: 100 mls/hr Documented By: STEFFANIE Lidocaine/Epinephrine (Lidocaine 2%/Epinephrine 1:100,000 20ml) 20 ml INFIL ONE ONE Stop: 08/19/23 15:35 Last Admin: 08/19/23 16:57 Dose: Not Given Documented By: CHANDANA Lorazepam (Lorazepam 1 Mg/1 Ml Syr Ed Inj Use) 1 mg IV ONE STA Stop: 08/19/23 18:36 Last Admin: 08/19/23 20:41 Dose: Not Given Documented By: STEFFANIE Lorazepam (Lorazepam 1 Mg/1 Ml Syr Ed Inj Use) Confirm Administered Dose 1 mg .ROUTE .STK-MED ONE Stop: 08/19/23 20:41 Last Admin: 08/19/23 20:41 Dose: 1 mg Documented By: STEFFANIE Potassium Chloride (Potassium Chloride 10 Meq Tabcr) 40 meq PO NOW STA Stop: 08/19/23 18:35 Last Admin: 08/19/23 19:17 Dose: 40 meq Documented By: STEFFANIE Critical Care Time Critical Care Time: Yes Total Critical Care Time: 82 I have personally spent greater than 82 minutes of critical care time in the direct management of this patient. This includes bedside care, interpretation of diagnostic studies, and testing, discussion with consultants, patient, and family members, and other required patient management activities. This 82 minutes is in excess of all separately billable procedures. Medical Decision Making Laboratory Data Attestation: I reviewed the patient's lab results. 08/19/23 14:35 08/19/23 14:35 Lab Results 08/19/23 08/19/23 08/19/23 Range/Units 14:19 14:35 17:22 WBC 9.76 (4.8-10.8) K/ul RBC 4.68 (4.20-5.40) M/uL Hgb 14.2 (12.0-16.0) g/dl Hct 39.9 (37.0-47.0) % MCV 85.3 (80.0-100.0) fL MCH 30.3 (25.0-34.0) pg MCHC 35.6 (32.0-36.0) g/dL RDW Std Deviation 39.3 (36.4-46.3) fL RDW Coeff of Deng 12.7 (11.5-14.5) % Plt Count 331 (130-400) K/uL MPV 10.3 (9.4-12.4) fL Immature Gran % (Auto) 0.2 % Neut % (Auto) 62.9 % Lymph % (Auto) 27.7 % Coos % (Auto) 5.8 % Eos % (Auto) 2.6 % Baso % (Auto) 0.8 % Neut # (Auto) 6.14 (1.40-6.50) K/uL Lymph # (Auto) 2.70 (1.20-3.40) K/uL Coos # (Auto) 0.57 (0.11-0.59) K/uL Eos # (Auto) 0.25 (0.00-0.50) K/uL Baso # (Auto) 0.08 (0.00-0.20) K/uL Immature Gran # (Auto) 0.02 (0.01-0.20) K/uL Sodium 137 (136-145) mmol/L Potassium 3.2 L (3.5-5.1) mmol/L Chloride 105 (98-107) mmol/L Carbon Dioxide 20 L (21-32) mmol/L Anion Gap 12 H (3-11) BUN 7 (6-23) mg/dl Creatinine 0.73 (0.6-1.2) mg/dl Est Cr Clr Drug Dosing 120.7 ml/min Est GFR ( Amer) 127.2 ml/min Est GFR (Non-Af Amer) 109.7 ml/min BUN/Creatinine Ratio 9.6 L (10-20) Glucose 103 H (70-99(Fasting)) mg/dl Calcium 9.4 (8.6-10.3) mg/dl Magnesium Cancelled Total Bilirubin 0.4 (0.2-1.0) mg/dl AST 17 (13-39) U/L ALT 16 (7-52) U/L Alkaline Phosphatase 56 (34-104) U/L Total Protein 7.1 (6.0-8.3) gm/dl Albumin 4.5 (3.4-5.0) gm/dl Globulin 2.6 (2.5-4.0) gm/dl Albumin/Globulin Ratio 1.7 (0.9-2) TSH 1.610 (0.300-4.500) uIu/ml HCG, Qual Negative (Negative) Urine Color Yellow Urine Appearance Clear (Clear) Urine pH 6.5 (4.5-7.5) Ur Specific [place] 1.007 (1.000-1.030) Urine Protein Negative (Negative) Urine Glucose (UA) Negative (Negative) Urine Ketones Trace H (Negative) Urine Blood Negative (Negative) Urine Nitrite Negative (Negative) Urine Bilirubin Negative (Negative) Urine Urobilinogen Negative (Negative) Ur Leukocyte Esterase Trace H (Negative) Urine WBC (Auto) 1-5 (0-5) /hpf Urine RBC (Auto) 0-4 (0-4) /hpf U Hyaline Cast (Auto) 0 (0-5) /lpf U Epithel Cells (Auto) 10-20 H (0-5) /lpf Urine Bacteria (Auto) Negative (Negative) Salicylates < 3.0 L (3.0-30) mg/dl Urine Opiates Screen Neg (Neg) Ur Methadone, Qual Neg (Neg) Acetaminophen 199 H* 114 H (10-30) ug/ml Urine Barbiturates Neg (Neg) Ur Phencyclidine (PCP) Neg (Neg) U Amphetamin/Meth Scrn Neg (Neg) MDMA (Ecstasy) Screen Neg (Neg) U Benzodiazepines Scrn Neg (Neg) Ur Cocaine Metabolite Neg (Neg) U Marijuana (THC) Screen Neg (Neg) Ethyl Alcohol mg/dL < 10.0 (<10.0) mg/dl SARS-CoV-2, RNA, NAAT NEGATIVE (NEGATIVE) 08/19/23 Range/Units 18:55 WBC (4.8-10.8) K/ul RBC (4.20-5.40) M/uL Hgb (12.0-16.0) g/dl Hct (37.0-47.0) % MCV (80.0-100.0) fL MCH (25.0-34.0) pg MCHC (32.0-36.0) g/dL RDW Std Deviation (36.4-46.3) fL RDW Coeff of Deng (11.5-14.5) % Plt Count (130-400) K/uL MPV (9.4-12.4) fL Immature Gran % (Auto) % Neut % (Auto) % Lymph % (Auto) % Coos % (Auto) % Eos % (Auto) % Baso % (Auto) % Neut # (Auto) (1.40-6.50) K/uL Lymph # (Auto) (1.20-3.40) K/uL Coos # (Auto) (0.11-0.59) K/uL Eos # (Auto) (0.00-0.50) K/uL Baso # (Auto) (0.00-0.20) K/uL Immature Gran # (Auto) (0.01-0.20) K/uL Sodium (136-145) mmol/L Potassium (3.5-5.1) mmol/L Chloride (98-107) mmol/L Carbon Dioxide (21-32) mmol/L Anion Gap (3-11) BUN (6-23) mg/dl Creatinine (0.6-1.2) mg/dl Est Cr Clr Drug Dosing ml/min Est GFR ( Amer) ml/min Est GFR (Non-Af Amer) ml/min BUN/Creatinine Ratio (10-20) Glucose (70-99(Fasting)) mg/dl Calcium (8.6-10.3) mg/dl Magnesium 2.3 Total Bilirubin (0.2-1.0) mg/dl AST (13-39) U/L ALT (7-52) U/L Alkaline Phosphatase (34-104) U/L Total Protein (6.0-8.3) gm/dl Albumin (3.4-5.0) gm/dl Globulin (2.5-4.0) gm/dl Albumin/Globulin Ratio (0.9-2) TSH (0.300-4.500) uIu/ml HCG, Qual (Negative) Urine Color Urine Appearance (Clear) Urine pH (4.5-7.5) Ur Specific [place] (1.000-1.030) Urine Protein (Negative) Urine Glucose (UA) (Negative) Urine Ketones (Negative) Urine Blood (Negative) Urine Nitrite (Negative) Urine Bilirubin (Negative) Urine Urobilinogen (Negative) Ur Leukocyte Esterase (Negative) Urine WBC (Auto) (0-5) /hpf Urine RBC (Auto) (0-4) /hpf U Hyaline Cast (Auto) (0-5) /lpf U Epithel Cells (Auto) (0-5) /lpf Urine Bacteria (Auto) (Negative) Salicylates (3.0-30) mg/dl Urine Opiates Screen (Neg) Ur Methadone, Qual (Neg) Acetaminophen (10-30) ug/ml Urine Barbiturates (Neg) Ur Phencyclidine (PCP) (Neg) U Amphetamin/Meth Scrn (Neg) MDMA (Ecstasy) Screen (Neg) U Benzodiazepines Scrn (Neg) Ur Cocaine Metabolite (Neg) U Marijuana (THC) Screen (Neg) Ethyl Alcohol mg/dL (<10.0) mg/dl SARS-CoV-2, RNA, NAAT (NEGATIVE) Imaging Data Attestation: I personally reviewed and interpreted this imaging study as follows: My Impression: CT head: No ICH Radiologist's Impression: Head CT 08/19/23 14:53 CT SCAN OF THE BRAIN WITHOUT IV CONTRAST CLINICAL HISTORY: Change in mental status COMPARISON STUDY: No priors. TECHNIQUE: Unenhanced axial CT scan of the brain is performed from the vertex to the skull base. A dose lowering technique was utilized adhering to the principles of ALARA. CT DOSE: 625.8 mGy.cm FINDINGS: Brain parenchyma: The brain parenchyma is normal in appearance. There is no hemorrhage, mass effect, or evidence of acute territorial ischemia by CT criteria. Mays-white matter differentiation is preserved. No extra-axial fluid collection is seen. Ventricles, sulci, cisterns: Normal in configuration. Intracranial vasculature: The visualized intracranial vasculature at the skull base is normal in appearance. Calvarium: Unremarkable. Sinuses and mastoids: The visualized paranasal sinuses are clear. The mastoid air cells are well pneumatized. Orbits: The bony orbits are grossly intact. IMPRESSION: No acute intracranial abnormality. ACT 112: Negative or not required by law. Electronically signed by: Devyn Castillo M.D. 08/19/2023 3:31 PM ECG Data Attestation: I personally reviewed and interpreted this ECG as follows: Additional Comments: EKG #1 at 1434: Sinus tachycardia with a rate of 129. SC 104 QRS [address] elevation or ST depression EKG #2 at 1511: Sinus tachycardia with a rate of 124. SC 104 QRS [address] elevation or ST depression EKG #3 at 2014: Sinus tachycardia with rate of 110. SC 156 QRS [address] elevation or ST depression [facility] Narrative 1417: The patient was evaluated in room A5. A complete history and physical exam was performed Cardiac monitoring: An order was placed for continuous cardiac monitoring. The monitor shows a rate of 120 with sinus tachycardia rhythm interpreted by me. 1517: Spoke with poison control. They recommend to give the patient 2 g of magnesium sulfate given the prolonged QTc.They recommend starting NAC therapy for the patient to recheck her Tylenol level 4 hours after ingestion which would be at 1715. They recommend keeping the magnesium greater than 2 and potassium greater than 4. 1715: is now at bedside and states he thinks that the patient might have taken Tylenol PM and that extra strength Tylenol. Laceration was repaired by BRYAN, 7 simple interrupted sutures were placed, see the procedure note. 1833: Labs are significant for potassium of 3.2. Potassium repletion will be started in the emergency department. 4-hour Tylenol level is 114. Spoke with poison control, and given that the patient overdose was not witnessed and is unclear exactly what she took as the is now saying that the patient took Tylenol PM and is unclear if the patient truly took these medications at 1315. Given this we will err on side of caution and treat the patient with NAC. Poison control also recommends given the patient Ativan 1 mg for possible diphenhydramine overdose if the patient did take Tylenol PM. Patient will be admitted to the [facility] service. Impression & Plan Acetaminophen overdose, Laceration of left wrist Discharge Plan Visit Data Chief Complaint: Overdose (Intentional) ED Provider: Phil Schafer Discharge Problem: Acetaminophen overdose, Laceration of left wrist Patient Disposition: Admitted As Inpatient Forms Stand Alone Forms: [facility], Suicide Prevention Resources Prescriptions Prescriptions: No Action duloxetine 60 mg Capsule,Delayed Release(Dr/Ec) 60 mg PO QAM Qty: 30 0RF Referrals Referrals: Ascencion Berry DO [Primary Care Provider] - Discharge Problem: Acetaminophen overdose Qualifiers: Encounter type: initial encounter Injury intent: intentional self-harm Q ualified Code(s): T39.1X2A - Poisoning by 4-Aminophenol derivatives, intentional self-harm, initial encounter Laceration of left wrist Qualifiers: Encounter type: initial encounter Qualified Code(s): S61.512A - Laceration without foreign body of left wrist, initial encounter
[2023-08-19] MEDS ORDERED: STAT IV/IM STA (15:21)
[2023-08-19] MEDS ORDERED: AcetylCYSTEINE IV 21 HR REGIMEN (>40KG) IV STA (15:21)
--- NOTE | 2023-08-19 15:32 | CT Scan Report ---
CT SCAN OF THE BRAIN WITHOUT IV CONTRAST CLINICAL HISTORY: Change in mental status COMPARISON STUDY: No priors. TECHNIQUE: Unenhanced axial CT scan of the brain is performed from the vertex to the skull base. A d ose lowering technique was utilized adhering to the principles of ALARA. CT DOSE: 625.8 mGy.cm FINDINGS: Brain parenchyma: The brain parenchyma is normal in appearance. There is no hemorrhage, mass effect, or evidence of acute territorial ischemia by CT criteria. Mays-white matter differentiation is preser jeniffer. No extra-axial fluid collection is seen. Ventricles, sulci, cisterns: Normal in configuration. Intracranial vasculature: The visualized intracranial vasculature at the skull base is normal in appe arance. Calvarium: Unremarkable. Sinuses and mastoids: The visualized paranasal sinuses are clear. The mastoid air cells are well pneu matized. Orbits: The bony orbits are grossly intact. IMPRESSION: No acute intracranial abnormality. ACT 112: Negative or not required by law. Electronically signed by: Devyn Castillo M.D. 08/19/2023 3:31 PM
[2023-08-19] MEDS: SODIUM CHLORIDE 0.9% 1,000 ML IV SCH (15:39)
[2023-08-19] MEDS: MAGNESIUM SULFATE / D5W 1 GM/100 ML BAG IV SCH (15:39)
--- NOTE | 2023-08-19 15:45 | Electrocardiogram Report ---
Test Reason : Blood Pressure : / mmHG Vent. Rate : 129 BPM Atrial Rate : 129 BPM P-R Int : 104 ms QRS Dur : 084 ms QT Int : 406 ms P-R-T Axes : 035 089 031 degrees QTc Int : 594 ms Sinus tachycardia with short [place] Nonspecific ST and T wave abnormality Abnormal ECG No previous ECGs available Confirmed by Sudhir Goel ([id number]) on 08/19/2023 3:45:26 PM Referred By: Confirmed By:Sudhir Goel
--- NOTE | 2023-08-19 15:47 | Electrocardiogram Report ---
Test Reason : Blood Pressure : / mmHG Vent. Rate : 124 BPM Atrial Rate : 124 BPM P-R Int : 104 ms QRS Dur : 090 ms QT Int : 430 ms P-R-T Axes : 008 060 026 degrees QTc Int : 617 ms Sinus tachycardia with short [place] Nonspecific ST and T wave abnormality Abnormal ECG When compared with ECG of 19-AUG-2023 14:34, (unconfirmed) Nonspecific T wave abnormality, improved in Anterolateral leads Confirmed by Sudhir Goel ([id number]) on 08/19/2023 3:47:18 PM Referred By: Confirmed By:Sudhir Goel
[2023-08-19 15:50] LABS: Appearance Urine Clear (Clear); Bacteria Urine Automated Negative (Negative); Bilirubin Urine Negative (Negative); Blood Urine Negative (Negative); Cast Urine Automated 0 /lpf (0-5); Color Urine Yellow; Glucose Urine UA Negative (Negative); Ketones Urine Trace (Negative); Leukocyte Esterase Urine Trace (Negative); Nitrite Urine Negative (Negative); Protein Urine Negative (Negative); RBC Urine Automated 0-4 /hpf (0-4); Specific Gravity Urine 1.007 (1.000-1.030); Urobilinogen Urine Negative (Negative); pH Urine 6.5 (4.5-7.5)
[2023-08-19 15:51] LABS: Basophils # (auto) 0.08 K/uL (0.00-0.20); Basophils % (auto) 0.8 %; Eosinophils # (auto) 0.25 K/uL (0.00-0.50); Eosinophils % (auto) 2.6 %; Hematocrit (blood only) 39.9 % (37.0-47.0); Hemoglobin 14.2 g/dl (12.0-16.0); Immature Granulocytes # (auto) 0.02 K/uL (0.01-0.20); Immature Granulocytes % (auto) 0.2 %; Lymphocytes % (auto) 27.7 %; Mean Corpuscular Hemoglobin 30.3 pg (25.0-34.0); Mean Corpuscular Hgb Conc 35.6 g/dL (32.0-36.0); Mean Corpuscular Volume 85.3 fL (80.0-100.0); Mean Platelet Volume 10.3 fL (9.4-12.4); Monocytes # (auto) 0.57 K/uL (0.11-0.59); Monocytes % (auto) 5.8 %; Neutrophils # (auto) 6.14 K/uL (1.40-6.50); Neutrophils % (auto) 62.9 %; Platelet Count 331 K/uL (130-400); RDW Coefficient of Variation 12.7 % (11.5-14.5); RDW Standard Deviation 39.3 fL (36.4-46.3); Red Blood Count 4.68 M/uL (4.20-5.40); White Blood Count 9.76 K/ul (4.8-10.8)
[2023-08-19 16:03] LABS: Pregnancy Test, Serum Negative (Negative)
[2023-08-19 16:05] LABS: Albumin Globulin Ratio 1.7 (0.9-2); Albumin Level 4.5 gm/dl (3.4-5.0); BUN Creatinine Ratio 9.6 (10-20); Bilirubin,Total 0.4 mg/dl (0.2-1.0); Calcium 9.4 mg/dl (8.6-10.3); Creatinine Clr Calc Pharmacy 120.7 ml/min; Est GFR (African American) 127.2 ml/min; Est GFR (Non-African American) 109.7 ml/min; Globulin 2.6 gm/dl (2.5-4.0); Potassium 3.2 mmol/L (3.5-5.1); Total Protein 7.1 gm/dl (6.0-8.3)
[2023-08-19 16:16] LABS: Acetaminophen 199 ug/ml (10-30); Salicylate < 3.0 mg/dl (3.0-30)
[2023-08-19 16:20] LABS: Thyroid Stimulating Hormone 1.61 uIu/ml (0.300-4.500)
[2023-08-19 16:25] LABS: Amphetamines+Metham, Urine Neg (Neg); Barbiturates, Urine Neg (Neg); Benzodiazepine, Urine Neg (Neg); Cocaine, Urine Neg (Neg); MDMA (Ecstacy), Urine Neg (Neg); Marijuana, Urine Neg (Neg); Methadone, Urine Neg (Neg); Opiate, Urine Neg (Neg); Phencyclidine, Urine Neg (Neg)
[2023-08-19] MEDS: LIDOCAINE 2%/EPINEPHRINE 1:100,000 20ML INFIL ONE (16:57)
[2023-08-19] MEDS: POTASSIUM CHLORIDE 10 MEQ TABCR PO STA (19:17)
[2023-08-19] MEDS: POTASSIUM CHLORIDE / WTR 10 MEQ/100 ML PLCT IV SCH (19:19)
[2023-08-19] MEDS: LORazepam 1 MG/1 ML SYR ED Inj Use ONE (20:41)
[2023-08-19] MEDS: LORazepam 1 MG/1 ML SYR ED Inj Use IV STA ×2 (20:41→22:58)
--- NOTE | 2023-08-19 22:35 | History & Physical Report ---
Date of Service August 19, 2023 Assessment & Plan (1) Acetaminophen overdose: Plan: 33-year-old female with past medical history significant for irritable bowel syndrome with diarrhea, morbid obesity, depression, history of suicidal ideation presents with intentional Tylenol overdose. Patient states she took 40 tablets of Tylenol PM around 1:15 PM. Poison control was contacted by ER. Initial Tylenol level was 199 and repeat was 114. QTc was prolonged. Received IV magnesium and potassium supplements. Repeat EKG QTc corrected. Patient was started on N-acetylcysteine. Current bag of N-acetylcysteine will be ending at 2:20 PM tomorrow. Poison control recommended to check labs 4 hours prior to end of current N-acetylcysteine. Based on the labs Poison control will give further recommendations. Patient currently resting comfortably . Seems somewhat depressed. Somewhat tachycardic. Received IV Ativan for Benadryl overdose and tachycardia. Patient denies any headache. No blurred vision. No runny nose or sore throat. No cough. No chest pain or shortness of breath. Appetite is okay. No nausea. No abdominal pain. Normal bowel and bladder movements. Patient states she always has thoughts of hurting herself. Intentional Tylenol overdose Suicidal ideation Currently on N-acetylcysteine drip as mentioned in H&P Will follow repeat labs and further poison control recommendations Monitor for urinary retention as patient also had Benadryl overdose and monitor hemodynamics Close monitor on telemetry floor One-on-one Suicide precautions Psychiatry consult Prolonged QTc Improved with potassium and magnesium supplements Close monitor electrolytes Follow repeat EKG Avoid QT prolonging drugs Depression Will hold citalopram for now for prolonged QTc Psychiatry consulted DVT prophylaxis SCDs Admission and Anticipated Discharge Date Admission Date: August 19, 2023 History of Present Illness Chief Complaint: Intentional Tylenol overdose Primary Care Provider: Ascencion Berry DO 33-year-old female with past medical history significant for irritable bowel syndrome with diarrhea, morbid obesity, depression, history of suicidal ideation presents with intentional Tylenol overdose. Patient states she took 40 tablets of Tylenol PM around 1:15 PM. Poison control was contacted by ER. Initial Tylenol level was 199 and repeat was 114. QTc was prolonged. Received IV magnesium and potassium supplements. Repeat EKG QTc corrected. Patient was started on N-acetylcysteine. Current bag of N-acetylcysteine will be ending at 2:20 PM tomorrow. Poison control recommended to check labs 4 hours prior to end of current N-acetylcysteine. Based on the labs Poison control will give further recommendations. Patient currently resting comfortably . Seems somewhat depressed. Somewhat tachycardic. Received IV Ativan for Benadryl overdose and tachycardia. Patient denies any headache. No blurred vision. No runny nose or sore throat. No cough. No chest pain or shortness of breath. Appetite is okay. No nausea. No abdominal pain. Normal bowel and bladder movements. Patient states she always has thoughts of hurting herself. Past medical history. As mentioned above Past surgical history. Tonsillectomy Social history. . No smoking. Alcohol rare. No drug use. Family history. Father had PTSD. Parkinson's. Obesity. Mother had depression. Fibromyalgia. Obesity. Sister has ADHD. Maternal grandfather had brain cancer. Maternal grandmother had lung cancer. Uncle had bone cancer. Aunt had heart disorder Allergies Allergy/AdvReac Type Severity Reaction Status Date / Time No Known Allergies Allergy Verified 07/08/22 15:22 Home Medications Medication Instructions Recorded Confirmed Type duloxetine 60 mg capsule,delayed 60 mg PO QAM #30 caps 07/28/23 Rx release Past Med/Surg History Medical History Obesity Intrahepatic cholestasis of Depression Surgical History S/P tonsillectomy Family History Mother Thyroid disease Grandfather (Paternal) Colorectal cancer Family/Other Breast cancer Mat cousin, PGGM Denies family history of Ovarian cancer Social History Smoking Status: Never smoker Hx Alcohol Use: Yes Alcohol type: wine Hx Substance Use: No Preferred Language: Hebrew Communication Ability: Effective Consumer Marketing Specialist Required: No Beliefs That Will Affect Care: None marital status: marital status details: Raymon [phone]) [phone] Current Living Situation: Spouse Current Living Situation Comment: lives with spouse, 2 cats, some reptiles, spouse to change litter current occupational status: employed 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 ENT- oropharynx clear Neck- supple, no JVD. Lungs- clear to auscultation no wheezing or crackles. Heart- regular rhythm; Tachycardia, no murmur, no gallop. Abdomen- normal bowel sounds, soft, nontender, no distension. Extremities- no pretibial edema, no erythema seen. Neuro- alert, oriented x 3; PERRL, no facial palsy; no dysarthria; obeys simple commands. Results & Data Results & Data Vital Signs (Past 12 Hours) Vital Signs Pulse Pulse Resp BP BP Pulse Ox O2 Del Method 08/19/23 22:03 112 H 19 137/95 100 Room Air 08/19/23 20:33 110 H 19 145/94 H 100 Room Air 08/19/23 19:13 105 H 19 144/99 H 100 Room Air 08/19/23 18:44 111 H 08/19/23 18:12 112 H 10 L 124/83 100 Room Air 08/19/23 16:53 112 H 16 136/89 100 Room Air 08/19/23 15:42 114 H 16 122/67 99 Room Air 08/19/23 15:37 123 H 08/19/23 15:00 114 H 20 121/84 97 Room Air 08/19/23 14:47 98 Room Air 08/19/23 14:47 113 H 12 121/84 98 Room Air O2 Flow Rate 08/19/23 22:03 08/19/23 20:33 08/19/23 19:13 08/19/23 18:44 08/19/23 18:12 08/19/23 16:53 08/19/23 15:42 08/19/23 15:37 08/19/23 15:00 08/19/23 14:47 0 08/19/23 14:47 Diagnostic Findings Laboratory Results WBC 9.76 K/ul (4.8-10.8) 08/19/23 14:35 RBC 4.68 M/uL (4.20-5.40) 08/19/23 14:35 Hgb 14.2 g/dl (12.0-16.0) 08/19/23 14:35 Hct 39.9 % (37.0-47.0) 08/19/23 14:35 MCV 85.3 fL (80.0-100.0) 08/19/23 14:35 MCH 30.3 pg (25.0-34.0) 08/19/23 14:35 MCHC 35.6 g/dL (32.0-36.0) 08/19/23 14:35 RDW Std Deviation 39.3 fL (36.4-46.3) 08/19/23 14:35 RDW Coeff of Deng 12.7 % (11.5-14.5) 08/19/23 14:35 Plt Count 331 K/uL (130-400) 08/19/23 14:35 MPV 10.3 fL (9.4-12.4) 08/19/23 14:35 Immature Gran % (Auto) 0.2 % 08/19/23 14:35 Neut % (Auto) 62.9 % 08/19/23 14:35 Lymph % (Auto) 27.7 % 08/19/23 14:35 Davis % (Auto) 5.8 % 08/19/23 14:35 Eos % (Auto) 2.6 % 08/19/23 14:35 Baso % (Auto) 0.8 % 08/19/23 14:35 Neut # (Auto) 6.14 K/uL (1.40-6.50) 08/19/23 14:35 Lymph # (Auto) 2.70 K/uL (1.20-3.40) 08/19/23 14:35 Davis # (Auto) 0.57 K/uL (0.11-0.59) 08/19/23 14:35 Eos # (Auto) 0.25 K/uL (0.00-0.50) 08/19/23 14:35 Baso # (Auto) 0.08 K/uL (0.00-0.20) 08/19/23 14:35 Immature Gran # (Auto) 0.02 K/uL (0.01-0.20) 08/19/23 14:35 Sodium 137 mmol/L (136-145) 08/19/23 14:35 Potassium 3.2 mmol/L (3.5-5.1) L 08/19/23 14:35 Chloride 105 mmol/L (98-107) 08/19/23 14:35 Carbon Dioxide 20 mmol/L (21-32) L 08/19/23 14:35 Anion Gap 12 (3-11) H 08/19/23 14:35 BUN 7 mg/dl (6-23) 08/19/23 14:35 Creatinine 0.73 mg/dl (0.6-1.2) 08/19/23 14:35 Est Cr Clr Drug Dosing 120.7 ml/min 08/19/23 14:35 Est GFR ( Amer) 127.2 ml/min 08/19/23 14:35 Est GFR (Non-Af Amer) 109.7 ml/min 08/19/23 14:35 BUN/Creatinine Ratio 9.6 (10-20) L 08/19/23 14:35 Glucose 103 mg/dl (70-99(Fasting)) H 08/19/23 14:35 Calcium 9.4 mg/dl (8.6-10.3) 08/19/23 14:35 Magnesium 2.3 mg/dl (1.7-2.4) 08/19/23 18:55 Total Bilirubin 0.4 mg/dl (0.2-1.0) 08/19/23 14:35 AST 17 U/L (13-39) 08/19/23 14:35 ALT 16 U/L (7-52) 08/19/23 14:35 Alkaline Phosphatase 56 U/L (34-104) 08/19/23 14:35 Total Protein 7.1 gm/dl (6.0-8.3) 08/19/23 14:35 Albumin 4.5 gm/dl (3.4-5.0) 08/19/23 14:35 Globulin 2.6 gm/dl (2.5-4.0) 08/19/23 14:35 Albumin/Globulin Ratio 1.7 (0.9-2) 08/19/23 14:35 TSH 1.610 uIu/ml (0.300-4.500) 08/19/23 14:35 HCG, Qual Negative (Negative) 08/19/23 14:35 Urine Color Yellow 08/19/23 14:19 Urine Appearance Clear (Clear) 08/19/23 14:19 Urine pH 6.5 (4.5-7.5) 08/19/23 14:19 Ur Specific [place] 1.007 (1.000-1.030) 08/19/23 14:19 Urine Protein Negative (Negative) 08/19/23 14:19 Urine Glucose (UA) Negative (Negative) 08/19/23 14:19 Urine Ketones Trace (Negative) H 08/19/23 14:19 Urine Blood Negative (Negative) 08/19/23 14:19 Urine Nitrite Negative (Negative) 08/19/23 14:19 Urine Bilirubin Negative (Negative) 08/19/23 14:19 Urine Urobilinogen Negative (Negative) 08/19/23 14:19 Ur Leukocyte Esterase Trace (Negative) H 08/19/23 14:19 Urine WBC (Auto) 1-5 /hpf (0-5) 08/19/23 14:19 Urine RBC (Auto) 0-4 /hpf (0-4) 08/19/23 14:19 U Hyaline Cast (Auto) 0 /lpf (0-5) 08/19/23 14:19 U Epithel Cells (Auto) 10-20 /lpf (0-5) H 08/19/23 14:19 Urine Bacteria (Auto) Negative (Negative) 08/19/23 14:19 Salicylates < 3.0 mg/dl (3.0-30) L 08/19/23 14:35 Urine Opiates Screen Neg (Neg) 08/19/23 14:19 Ur Methadone, Qual Neg (Neg) 08/19/23 14:19 Acetaminophen 114 ug/ml (10-30) H 08/19/23 17:22 Urine Barbiturates Neg (Neg) 08/19/23 14:19 Ur Phencyclidine (PCP) Neg (Neg) 08/19/23 14:19 U Amphetamin/Meth Scrn Neg (Neg) 08/19/23 14:19 MDMA (Ecstasy) Screen Neg (Neg) 08/19/23 14:19 U Benzodiazepines Scrn Neg (Neg) 08/19/23 14:19 Ur Cocaine Metabolite Neg (Neg) 08/19/23 14:19 U Marijuana (THC) Screen Neg (Neg) 08/19/23 14:19 Ethyl Alcohol mg/dL < 10.0 mg/dl (<10.0) 08/19/23 14:35 SARS-CoV-2, RNA, NAAT NEGATIVE (NEGATIVE) 08/19/23 14:[address] 08/19/23 14:53 CT SCAN OF THE BRAIN WITHOUT IV CONTRAST CLINICAL HISTORY: Change in mental status COMPARISON STUDY: No priors. TECHNIQUE: Unenhanced axial CT scan of the brain is performed from the vertex to the skull base. A dose lowering technique was utilized adhering to the principles of ALARA. CT DOSE: 625.8 mGy.cm FINDINGS: Brain parenchyma: The brain parenchyma is normal in appearance. There is no hemorrhage, mass effect, or evidence of acute territorial ischemia by CT criteria. Mays-white matter differentiation is preserved. No extra-axial fluid collection is seen. Ventricles, sulci, cisterns: Normal in configuration. Intracranial vasculature: The visualized intracranial vasculature at the skull base is normal in appearance. Calvarium: Unremarkable. Sinuses and mastoids: The visualized paranasal sinuses are clear. The mastoid air cells are well pneumatized. Orbits: The bony orbits are grossly intact. IMPRESSION: No acute intracranial abnormality. ACT 112: Negative or not required by law. Electronically signed by: Devyn Castillo M.D. 08/19/2023 3:31 PM ECG Additional Comments: ECG. Sinus tachycardia with short OH rate of 124. Nonspecific ST and T wave abnormality. QTc 617 Repeat EKG. Sinus tachycardia rate of 110. QTc 492 Code Status & VTE Plan VTE Prophylaxis Plan VTE Prophylaxis will be ordered: Yes (1) Acetaminophen overdose Encounter type: initial encounter Injury intent: intentional self-harm Qualified Code(s): T39.1X2A - Poisoning by 4-Aminophenol derivatives, intentional self-harm, initial encounter
[2023-08-19 23:01] LABS: Magnesium 2.2 mg/dl (1.7-2.4); Potassium 3.9 mmol/L (3.5-5.1)
--- OUTSIDE RECORDS SUMMARY | 2023-08-20 03:13 | External Medical Summary | Summary of Care ---
Author Name Unknown Organization [facility] Address [address] [place] [address] Phone [phone] Care Team Providers Care Radio Talk Show Host Name Role Phone KylealexAscencion DO Primary Care Provider [phone] Reason for Visit * Reason Onset Date Comments MyCode Consent 08/06/2023 Encounter Details Date Type Department Care Team (Late st Contact Info) Description 08/06/2023 Orders Only Outcomes Research Department [address] [place] [address], [place] [id number] Ander Burns CHRA MyCode Research Other*[id number]* Allergies No known active allergiesdocumented as of this encounter (statuses as of 08/06/2023) Medications Medication Sig Dispensed Refills Start Date End Date Status Cetirizine HCl 10 MG Oral Capsule Take 1 Capsule by mouth in the morning. 0 Active Vitamin D, Cholecalciferol, 1000 UNITS TABS Take 1 Tablet by mouth in the morning. 0 Active Multivitamin Adult Oral Tablet Take by mouth. 0 Active DULoxetine HCl 60 MG Oral Capsule Delayed Release Particles (Cymbalta) Take 1 Capsule by mouth in the morning. 0 07/28/2023 Active documented as of this encounter (statuses as of 08/06/2023) Active Problems Problem Noted Date Diagnosed Date Major depressive disorder, recurrent, unspecifie d 09/27/2020 Irritable bowel syndrome with diarrhea 9 Depression 06/19/2015 documented as of this encounter (statuses as of 08/06/2023) Immunizations Name Administration Dates Next Due DTaP Dipth/Tet/Acell Pertussis (Infanrix), Peds 09/13/1996,11/23/1993,1992,08/11,1992 HIB PRP-T, 4 dose (ActHib) 07/20/1993,,1992,06/16 HPV Vaccine, 4-Valent 09/10/2007,02/26/2007,11/25 Hepatitis B, 0-19 yrs 04/13/1993,1992,04/26 Hepatitis B, 20+ yrs 01/07/2013 IPV - Polio Virus Vaccine (Inact) 1996,11/23/1993,1992,08/11,1992 MMR - Measles/Mumps/Rubella Vaccine 09/13/1996,0 07/20/1993 Meningococcal Conjugate Vacc ine (Menactra/Menveo) 12/18/2007 PPD 09/13/1996,04/11/1993 Seasonal Influenza, PF, 6 M & above, IM , (FluLaval or Fluzone) 01/25/2023 Seasonal Influenza, QUAD, wi th Preserv, 6 mons & Above, 0.5 mL, IM 02/13/2021,02/18/2019,02/12/2018 Seasonal Influenza, Quadriva lent, No Preserve, IM 03/15/2020,06/19/2015 Seasonal Influenza, Split, I IV3, With Preserve, Inj 04/06/2016,03/02/2009,04/06/2005 TD, Preservative Free 11/22/2004 TDAP (age 10 and older)(Boostrix) 03/14/2021, Varicella Vaccine (Chicken Pox) 12/18/2007,11/23 documented as of this encounter Social History Tobacco Use Types Packs/Day Years Used Date Smoking Tobacco: Never Smokeless Tobacco: Never Alcohol Use Standard Drinks/Week Comments Yes 0 (1 standard drink = 0.6 oz pur e alcohol) rare PHQ-2 Answer Date Recorded PHQ-2 Score 18 07/09/2019 Hunger Vital Sign Answer Date Recorded Within the past 12 months, y ou worried that your food would run out before you got the money to buy more. Never true 07/29/19 24 Within the past 12 months, t he food you bought just didn't last and you didn't have money to get more. Never true 07/29/2023 Sex and Gender Information Value Date Recorded Sex Assigned at Female 01/23/2021 8:34 AM EDT Gender Identity Female 01/23/2021 8:34 AM EDT Sexual Orientation Bisexual 01/23/2021 8: 34 AM EDT Job Start Date Occupation Industry Not on file Not on file Not on file documented as of this encounter Progress Notes * Ander Burns CHRA - 08/06/2023 1:43 PM EDT MyCode Consent Documentation Jocelyn Mathews provided consent/authorization to participate in the [employer]. documented in this encounter Plan of Treatment Scheduled Orders Name Type Priority Associated Diagnoses Orde r Schedule MYCODE INITIAL ADULT Lab Routine MyCode Research Other*[id number] Expected: 08/06/2023 (Approximate), Expires: 08/25/2024 Health Maintenance Due Date Last Done Comments HIV Screening 2007 Hepatitis C Screening 2010 Depression, Most Recent Score >= 10 (will fire each visit until score < 10) 07/10/2019 07/09/2019 Pap Smear 08/10/2019 08/09/2016, 07/24, 08/12/2013 Cervical Cancer Screening 2022 HPV/Co-Test 2022 COVID-19 Vaccine (24 season) 2023 DTaP,Tdap,and Td Vaccines (8 - Td or Tdap) 03/14/2031 03/14/2021, 09/21/2015, 11/22/2004, Additional history exists GARDASIL-HPV IMMUNIZATION SERIES Completed 09/10/2007, 02/26/2007, 12/23/2006 MENINGOCOCCAL (MENACTRA/MENVEO) Aged Out 12/18/2007 No longer eligible based on patient's age to complete this topic Hepatitis B Completed 01/07/2013, 03/26, 1992, Additional history exists Influenza Vaccine (FLU shot) Completed 06/2022, 02/13/2021, 03/15/2020, Additional history exists Pneumococcal Vaccine: Pediatrics (0 to 5 Years) and At-Risk Patients (6 to 64 Years) Aged Out No longer eligible based on patient's age to complete this topic documented as of this encounter Medical Devices Not on filedocumented as of this encounter Visit Diagnoses Diagnosis MyCode Research Other*[id number]- Primary documented in this encounter Care Teams Radio Talk Show Host Relationship Specialty Start Date End Date Ascencion Berry DO [address] [place] [address] PCP - General Family Medicine 12/03/16 documented as of this encounter
--- OUTSIDE RECORDS SUMMARY | 2023-08-20 03:13 | External Medical Summary | Summary of Care ---
Author Name Unknown Organization [facility] [address] [facility] [address] Phone [phone] Care Team Providers Care Manager Environmental Affairs Name Role Phone Ascencion Berry DO Primary Care Provider [phone] Reason for Visit * Reason Onset Date Comments Hospital Follow-Up 07/29/2023 No ALEXANDER call n eeded Encounter Details Date Type Department Care Team (Late st Contact Info) Description 07/29/2023 Telephone Ancillary [facility] [place] [address] [place] [address] Roxie Goldstein, RN Hospital Follow-Up (No ALEXANDER call needed) Allergies No known active allergiesdocumented as of this encounter (statuses as of 07/29/2023) Medications Medication Sig Dispensed Refills Start Date End Date Status Cyanocobalamin (VITAMIN B-12) 1000 MCG Tablet Take 1 Tablet by mouth once a week. 0 Active Cetirizine HCl 10 MG Oral Capsule Take 1 Capsule by mouth in the morning. 0 Active Vitamin D, Cholecalciferol, 1000 UNITS TABS Take 1 Tablet by mouth in the morning. 0 Active Sertraline HCl 100 MG Oral Tablet (Zoloft) Take 1 Tablet by mouth in the morning. 90 Tablet 3 12/18/2022 Active documented as of this encounter (statuses as of 07/29/2023) Active Problems Problem Noted Date Diagnosed Date Major depressive disorder, recurrent, unspecifie d 09/27/2020 Irritable bowel syndrome with diarrhea 9 Depression 06/19/2015 documented as of this encounter (statuses as of 07/29/2023) Immunizations Name Administration Dates Next Due DTaP Dipth/Tet/Acell Pertussis (Infanrix), Peds 09/13/1996,11/23/1993,1992,08/11,1992 HIB PRP-T, 4 dose (ActHib) 07/20/1993,,1992,06/16 HPV Vaccine, 4-Valent 09/10/2007,02/26/2007,11/25 Hepatitis B, 0-19 yrs 04/13/1993,1992,04/26 Hepatitis B, 20+ yrs 01/07/2013 IPV - Polio Virus Vaccine (Inact) 1996,11/23/1993,1992,08/11,1992 MMR - Measles/Mumps/Rubella Vaccine 09/13/1996,0 07/20/1993 Meningococcal Conjugate Vacc ine (Menactra/Menveo) 12/18/2007 PPD 09/13/1996,04/11/1993 Seasonal Influenza, QUAD, wi th Preserv, 6 mons & Above, 0.5 mL, IM 02/13/2021,02/18/2019,02/12/2018 Seasonal Influenza, Quadriva lent, No Preserve, IM 03/15/2020,06/19/2015 Seasonal Influenza, Split, I IV3, With Preserve, Inj 04/06/2016,03/02/2009,04/06/2005 TD, Preservative Free 11/22/2004 TDAP (age 10 and older)(Boostrix) 09/21/2015 Varicella Vaccine (Chicken Pox) 12/18/2007,11/23 documented as [...] the money to buy more. Never true 11/06/19 23 Within the past 12 months, t he food you bought just didn't last and you didn't have money to get more. Never true 11/05/2022 Sex and Gender Information Value Date Recorded Sex Assigned at Female 01/23/2021 8:34 AM EDT Gender Identity Female 01/23/2021 8:34 AM EDT Sexual Orientation Bisexual 01/23/2021 8: 34 AM EDT Job Start Date Occupation Industry Not on file Not on file Not on file documented as of this encounter Miscellaneous Notes * Telephone Encounter - Roxie Goldstein RN - 07/29/2023 8:17 AM EST Transitions of Care Note Reason for Referral:Recent Admission Phone visit for follow up: Inpatient Hospitalization Admitted to: [facility], Date: Discharged to: home, Date: 07/27 ALEXANDER call not indicated due to psych admission. Roxie Goldstein RN documented in this encounter Plan of Treatment Upcoming Encounters Date Type Department Care Team (Late st Contact Info) Description 08/06/2023 1:40 PM EDT Office Visit Family Practice [facility] [address] [facility] [place] [address] Ascencion Berry, [address] [facility] [place], [place] [address] Health Maintenance Due Date Last Done Comments HIV Screening 2007 Hepatitis C Screening 2010 Depression, Most Recent Score >= 10 (will fire each visit until score < 10) 07/10/2019 07/09/2019 Pap Smear 08/10/2019 08/09/2016, 07/24, 08/12/2013 Cervical Cancer Screening 2022 HPV/Co-Test 2022 COVID-19 Vaccine ( season) 2023 Influenza Vaccine (FLU shot) (#1) 2023 02/13/2021, 03/15/2020, 02/18/2019, Additional history exists DTaP,Tdap,and Td Vaccines (7 - Td or Tdap) 09/20/2025 09/21/2015, 11/22/2004, 09/13/1996, Additional history exists GARDASIL-HPV IMMUNIZATION SERIES Completed 09/10/2007, 02/26/2007, 12/23/2006 MENINGOCOCCAL (MENACTRA/MENVEO) Aged Out 12/18/2007 No longer eligible based on patient's age to complete this topic Hepatitis B Completed 01/07/2013, 03/26, 1992, Additional history exists Pneumococcal Vaccine: Pediatrics (0 to 5 Years) and At-Risk Patients (6 to 64 Years) Aged Out No longer eligible based on patient's age to complete this topic documented as of this encounter Medical Devices Not on filedocumented as of this encounter Care Teams Manager Environmental Affairs Relationship Specialty Start Date End Date Ascencion Berry DO [address] [place] [address] PCP - General Family Medicine 12/03/16 documented as of this encounter
--- OUTSIDE RECORDS SUMMARY | 2023-08-20 03:13 | External Medical Summary | Summary of Care ---
Author Name Unknown Organization [facility] Address [address] [facility] [place] [address] Phone [phone] Care Team Providers Care Field Examiner Name Role Phone Ascencion Berry DO Primary Care Provider [phone] Reason for Visit * Reason Onset Date Comments Hospital Follow-Up Hospital Follow-Up 08/06/2023 Encounter Details Date Type Department Care Team (Late st Contact Info) Description 08/06/2023 1:40 PM EDT Office Visit Family Practice [facility] [place] [address] [place] [address] Ascencion Berry DO [address] [place] [address] Moderate episode of recurrent major depressive disorder (HCC)*; Hospital discharge follow-up; Class 3 severe obesity due to excess calories without serious comorbidity in adult, unspecified BMI (HCC) Allergies No known active allergiesdocumented as of this encounter (statuses as of 08/06/2023) Medications Medication Sig Dispensed Refills Start Date End Date Status Cetirizine HCl 10 MG Oral Capsule Take 1 Capsule by mouth in the morning. 0 Active Vitamin D, Cholecalciferol, 1000 UNITS TABS Take 1 Tablet by mouth in the morning. 0 Active Multivitamin Adult Oral Tablet Take by mouth. 0 Act charlee DULoxetine HCl 60 MG Oral Capsule Delayed Release Particles (Cymbalta)Indicat ions:Moderate episode of recurrent major depressive disorder (HCC) Take 1 Capsule by mouth in the morning. 30 Capsule 11 08/06/2023 Active Cyanocobalamin (VITAMIN B-12) 1000 MCG Tablet Take 1 Tablet by mouth once a week. 0 08/06/2023 Discontinued (Medication List Clean Up) Sertraline HCl 100 MG Oral Tablet (Zoloft) Take 1 Tablet by mouth in the morning. 90 Tablet 3 12/18/2022 08/06/2023 Discontinued (Medication/ Dose Changed) DULoxetine HCl 60 MG Oral Capsule Delayed Release Particles (Cymbalta) Take 1 Capsule by mouth in the morning. 0 07/28/2023 08/06/2023 Discontinued (Refill) documented as of this encounter (statuses as of 08/06/2023) Active Problems Problem Noted Date Diagnosed Date Morbid (severe) obesity due to excess calories 0 08/06/2023 Major depressive disorder, recurrent, unspecifie d 09/27/2020 [...] on file documented as of this encounter Last Filed Vital Signs Vital Sign Reading Time Taken Comments Blood Pressure 112/80 08/06/2023 1:41 PM EDT Pulse 84 08/06/2023 1:41 PM EDT Temperature 36.6 C (97.8 F) 08/06/2023 1:41 PM ED T Respiratory Rate 16 08/06/2023 1:41 PM EDT Oxygen Saturation 97% 08/06/2023 1:41 PM EDT Inhaled Oxygen Concentration - - Weight 124.4 kg (274 lb 3.2 oz) 08/06/2023 1:41 PM EDT Height - - Body Mass Index 40.39 07/09/2019 4:11 PM EST documented in this encounter Progress Notes * Ascencion Berry, DO - 08/06/2023 1:48 PM EDT Subjective: Jocelyn Mathews is a 33 year old female. Chief Complaint Patient presents with Hospital Follow-Up Hospital Follow-Up HPI: Pt admitted on and discharged on 07/27. On admission she expressed that her depression had been steadily worsening. Recently she had taken a handgun and was thinking about ending her life. She got scared and told her . He brought her to the hospital. She has a history of a suicide attempt 8 years ago by strangulation. She is stressed financially. Her work is stressful. She seemed to have trouble opening up to her or best friend. Her sleep has been poor. Her son does make her happy but not much else. She is feeling exhausted atthe end of the day and has poor concentration. She admitted to cutting her thighs a few days before. She was transitioned from Zoloft to Wellbutrin while inpatient. They had a family meeting and guns have been secured in their home. She is still talking to a therapist. She does not notice much of a difference with Cymbalta from Zoloft. She no longer has suicidal plans. She learned some coping skills. Still feels hopeless. Sleep is still bad. She isn't taking anything for sleep. Sheldon turned 4 in April. Was up until 2:30. Just cannot fall asleep. Does a lot ofruminating. She has an appointment with a psychiatrist in August. Robert gives her parth. Trying to get out walking, does some drawing. She'd like to go back to [employer]. PMHx, meds, and allergies reviewed Patient Active Problem List Diagnosis Code Depression F32.A Irritable bowel syndrome with diarrhea K58.0 Major depressive disorder, recurrent, unspecified (HCC) F33.9 Current Outpatient Medications Medication Sig Dispense Refill Cetirizine HCl 10 MG Oral Capsule Take 1 Capsule by mouth in the morning. Vitamin D, Cholecalciferol, 1000 UNITS TABS Take 1 Tablet by mouth in the morning. Multivitamin Adult Oral Tablet Take by mouth. DULoxetine HCl 60 MG Oral Capsule Delayed Release Particles (Cymbalta) Take 1 Capsule by mouth in the morning. No current facility-administered medications for this visit. Review of patient's allergies indicates: No Known Allergies OBJECTIVE: BP 112/80 | Pulse 84 | Temp 36.6 C (97.8 F) (Tympanic) | Resp 16 | Wt 124.4 kg (274 lb 3.2 oz) | SpO2 97% | BMI 40.39 kg/m | BSA 2.46 m Estimated body mass index is 40.39 kg/m as calculated from the following: Height as of 07/09/19: 1.755 m (5' 9.09"). Weight as of this encounter: 124.4 kg (274 lb 3.2 oz). BP Readings from Last 3 Encounters: 08/06/23 112/80 11/08/22 118/80 07/09/19 124/62 Wt Readings from Last 3 Encounters: 08/06/23 124.4 kg (274 lb 3.2 oz) 11/08/22 (!) 136.2 kg (300 lb 3.2 oz) 07/09/19 80.3 kg (177 lb) ROS: Negative except for above PHYSICAL EXAM: General: alert, healthy, and no distress Head: Normocephalic, No masses, lesions, tenderness or abnormalities ASSESSMENT/Plan Moderate episode of recurrent major depressive disorder (HCC) (Primary) - DISCH MED RECON CUR MED LIS - DULoxetine HCl 60 MG Oral Capsule Delayed Release Particles (Cymbalta); Take 1 Capsule by mouth in the morning. Hospital discharge follow-up - DISCH MED RECON CUR MED LIS Class 3 severe obesity due to excess calories without serious comorbidity in adult, unspecified BMI(HCC) I spent a total of 30 minutes on the date of service in preparation, delivery, and documentation ofthe care provided to this patient, excluding any time spent on the performance of any procedure or separately billable services. We discussed some options to help her sleep that I don't think will sedate her beyond the ability to respond to her son. I also think working towards a hobby would help. The above was discussed and understanding was expressed. Ascencion Berry DO documented in this encounter Nursing Notes * Karen Burr LPN - 08/06/2023 1:40 PM EDT Jocelyn Mathews presents for hospital follow up. Medications & HM reviewed. Was taken off of sertraline and started on Duloxetine 60 mg daily. Was told it could take up to 5 weeks to see any changes in mood but she's not having any side effects. documented in this encounter Plan of Treatment Upcoming Encounters Date Type Department Care Team (Late st Contact Info) Description 02/10/2024 10:00 AM EDT Office Visit Family Practice [facility] [place] [address] [facility] [place], [place] [address] Ascencion Berry DO [address] [place] [address] Health Maintenance Due Date Last Done Comments HIV Screening 2007 Hepatitis C Screening 2010 Depression, Most Recent Score >= 10 (will fire each visit until score < 10) 07/10/2019 07/09/2019 Pap Smear 08/10/2019 08/09/2016, 07/24, 08/12/2013 Cervical Cancer Screening 2022 HPV/Co-Test 2022 COVID-19 Vaccine (2022- season) 2023 DTaP,Tdap,and Td Vaccines (8 - [...] as of this encounter Visit Diagnoses Diagnosis Moderate episode of recurrent major depressive disorder (HCC)- Primary Hospital discharge follow-up Other follow-up examination Class 3 severe obesity due to excess calories without serious comorbidity in adult, unspecified BMI (HCC) documented in this encounter Care Teams Field Examiner Relationship Specialty Start Date End Date Ascencion Berry DO [address] [place] [address] PCP - General Family Medicine 12/03/16 documented as of this encounter
[2023-08-20 10:28] LABS: Basophils # (auto) 0.04 K/uL (0.00-0.20); Basophils % (auto) 0.6 %; Eosinophils # (auto) 0.04 K/uL (0.00-0.50); Eosinophils % (auto) 0.6 %; Hematocrit (blood only) 40.2 % (37.0-47.0); Hemoglobin 13.4 g/dl (12.0-16.0); Immature Granulocytes # (auto) 0.02 K/uL (0.01-0.20); Immature Granulocytes % (auto) 0.3 %; Lymphocytes # (auto) 2.02 K/uL (1.20-3.40); Lymphocytes % (auto) 28.2 %; Mean Corpuscular Hemoglobin 29.7 pg (25.0-34.0); Mean Corpuscular Hgb Conc 33.3 g/dL (32.0-36.0); Mean Corpuscular Volume 89.1 fL (80.0-100.0); Mean Platelet Volume 9.6 fL (9.4-12.4); Monocytes # (auto) 0.48 K/uL (0.11-0.59); Monocytes % (auto) 6.7 %; Neutrophils # (auto) 4.57 K/uL (1.40-6.50); Neutrophils % (auto) 63.6 %; Platelet Count 273 K/uL (130-400); RDW Standard Deviation 42.4 fL (36.4-46.3); Red Blood Count 4.51 M/uL (4.20-5.40); White Blood Count 7.17 K/ul (4.8-10.8)
[2023-08-20 10:46] LABS: Albumin Globulin Ratio 1.5 (0.9-2); Albumin Level 3.8 gm/dl (3.4-5.0); BUN Creatinine Ratio 4.7 (10-20); Bilirubin,Total 0.5 mg/dl (0.2-1.0); Calcium 8.1 mg/dl (8.6-10.3); Creatinine Clr Calc Pharmacy 137.7 ml/min; Est GFR (African American) 137.8 ml/min; Est GFR (Non-African American) 118.9 ml/min; Globulin 2.5 gm/dl (2.5-4.0); Magnesium 2.3 mg/dl (1.7-2.4); Potassium 3.7 mmol/L (3.5-5.1); Total Protein 6.3 gm/dl (6.0-8.3)
[2023-08-20 10:50] LABS: INR 1.1 (0.9-1.1); Prothrombin Time 11.8 Seconds (9.0-12.0)
[2023-08-20] MEDS: POTASSIUM CHLORIDE CRTAB 20 MEQ TABCR PO STA (13:19)
--- NOTE | 2023-08-20 14:16 | Hospitalist Progress Note ---
Date of Service August 20, 2023 Assessment & Plan (1) Acetaminophen overdose: Plan: 33-year-old female with past medical history significant for irritable bowel syndrome with diarrhea, morbid obesity, depression, history of suicidal ideation presents with intentional Tylenol overdose. Patient states she took 40 tablets of Tylenol PM around 1:15 PM. Poison control was contacted by ER. Initial Tylenol level was 199 and repeat was 114. QTc was prolonged. Received IV magnesium and potassium supplements. Repeat EKG QTc corrected. Patient was started on N-acetylcysteine. Current bag of N-acetylcysteine will be ending at 2:20 PM tomorrow. Poison control recommended to check labs 4 hours prior to end of current N-acetylcysteine. Based on the labs Poison control will give further recommendations. Patient currently resting comfortably . Seems somewhat depressed. Somewhat tachycardic. Received IV Ativan for Benadryl overdose and tachycardia. Patient denies any headache. No blurred vision. No runny nose or sore throat. No cough. No chest pain or shortness of breath. Appetite is okay. No nausea. No abdominal pain. Normal bowel and bladder movements. Patient states she always has thoughts of hurting herself. Intentional Tylenol PM overdose Suicidal Ideation Acetaminophen level 199>114>5 Contacted poison control Received acetylcysteine as recommended by poison control Monitor acetaminophen levels Suicidal precautions Received IV fluids Monitor LFTs, INR Psychiatry consulted Hypokalemia Replete electrolytes as needed Monitor Prolonged QTc Avoid QT prolonging drugs Monitor Depression Will hold citalopram for now for prolonged QTc Psychiatry consulted DVT Px: SCDs Admission and Anticipated Discharge Date Admission Date: August 19, 2023 Subjective Patient is seen and examined at bedside States feeling tired today Offers no new complaints Sitter at bedside Denies any chest pain, dyspnea, dizziness, nausea, vomiting, abdominal pain No other complaints Tylenol levels much improved Review of Systems Review of Systems: All systems reviewed & are unremarkable except as noted in Subjective Physical Exam Physical Exam: Physical Exam: Vitals signs as noted above General Appearance:Obese, no apparent distress Head: normocephalic, Atraumatic Eyes: normal inspection, EOMI Neck: supple, Trachea midline Respiratory/Chest: Normal breath sounds, CTA, No accessory muscle use Cardiovascular: S1, S2, No murmur Abdomen/GI:Soft, Non tender, Bowel sounds present Extremities/Musculoskeletal:normal inspection, no edema Neurologic/Psych:AAOX3, grossly no focal neurological deficits Skin: normal color, warm Results & Data Results & Data Vital Signs (Past 12 Hours) Vital Signs Temp Pulse Pulse Resp BP BP Pulse Ox 08/20/23 11:20 87 13 100 08/20/23 11:10 78 16 100 08/20/23 11:08 80 7 L 100 08/20/23 11:08 129/91 08/20/23 11:00 81 16 100 08/20/23 10:50 85 18 99 08/20/23 10:40 78 33 H 99 08/20/23 10:30 76 20 100 08/20/23 10:20 82 14 100 08/20/23 10:10 82 16 99 08/20/23 10:00 82 15 99 08/20/23 09:50 80 18 96 08/20/23 09:40 84 16 97 08/20/23 09:30 85 16 98 08/20/23 09:20 83 16 97 08/20/23 09:10 82 18 97 08/20/23 09:00 82 16 99 08/20/23 08:50 80 18 99 08/20/23 08:40 82 16 100 08/20/23 08:30 84 16 100 08/20/23 08:20 83 16 100 08/20/23 08:10 111 H 24 99 08/20/23 08:00 88 20 97 08/20/23 07:50 85 15 96 08/20/23 07:40 93 H 18 98 08/20/23 07:30 92 H 22 98 08/20/23 07:20 96 H 17 98 08/20/23 07:10 87 19 98 08/20/23 07:00 93 H 18 100 08/20/23 06:46 37.2 C 129/76 08/20/23 06:46 107 H 18 99 08/20/23 06:00 76 17 98 08/20/23 05:00 75 16 96 08/20/23 03:15 88 20 167/96 H 100 O2 Del Method 08/20/23 11:20 08/20/23 11:10 08/20/23 11:08 08/20/23 11:08 08/20/23 11:00 08/20/23 10:50 08/20/23 10:40 08/20/23 10:30 08/20/23 10:20 08/20/23 10:10 08/20/23 10:00 08/20/23 09:50 08/20/23 09:40 08/20/23 09:30 08/20/23 09:20 08/20/23 09:10 08/20/23 09:00 08/20/23 08:50 08/20/23 08:40 08/20/23 08:30 08/20/23 08:20 08/20/23 08:10 08/20/23 08:00 08/20/23 07:50 08/20/23 07:40 08/20/23 07:30 08/20/23 07:20 08/20/23 07:10 08/20/23 07:00 08/20/23 06:46 08/20/23 06:46 08/20/23 06:00 08/20/23 05:00 08/20/23 03:15 Room Air Laboratory Results Short CBC 08/19/23 08/20/23 Range/Units 14:35 10:03 WBC 9.76 7.17 (4.8-10.8) K/ul Hgb 14.2 13.4 (12.0-16.0) g/dl Hct 39.9 40.2 (37.0-47.0) % Plt Count 331 273 (130-400) K/uL BMP 08/19/23 08/19/23 08/20/23 14:35 Unknown 10:03 Sodium 137 136 Potassium 3.2 L 3.9 D 3.7 Chloride 105 109 H Carbon Dioxide 20 L 22 BUN 7 3 L Creatinine 0.73 0.64 Glucose 103 H 91 Calcium 9.4 8.1 L Liver Function 08/19/23 08/20/23 Range/Units 14:35 10:03 Total Bilirubin 0.4 0.5 (0.2-1.0) mg/dl AST 17 39 (13-39) U/L ALT 16 50 (7-52) U/L Alkaline Phosphatase 56 42 (34-104) U/L Albumin 4.5 3.8 (3.4-5.0) gm/dl Urine 08/19/23 Range/Units 14:19 Urine Color Yellow Urine Appearance Clear (Clear) Urine pH 6.5 (4.5-7.5) Ur Specific [place] 1.007 (1.000-1.030) Urine Protein Negative (Negative) Urine Glucose (UA) Negative (Negative) (1) Acetaminophen overdose Encounter type: initial encounter Injury intent: intentional self-harm Qualified Code(s): T39.1X2A - Poisoning by 4-Aminophenol derivatives, intentional self-harm, initial encounter
--- NOTE | 2023-08-20 16:08 | Electrocardiogram Report ---
Test Reason : Blood Pressure : / mmHG Vent. Rate : 110 BPM Atrial Rate : 110 BPM P-R Int : 156 ms QRS Dur : 088 ms QT Int : 364 ms P-R-T Axes : 049 045 011 degrees QTc Int : 492 ms Sinus tachycardia Otherwise normal ECG When compared with ECG of 19-AUG-2023 15:11, IA interval has increased Confirmed by Sudhir Goel ([id number]) on 08/20/2023 4:08:09 PM Referred By: REFERRED SELF Confirmed By:Sudhir Goel
--- NOTE | 2023-08-20 16:10 | Electrocardiogram Report ---
Test Reason : Blood Pressure : / mmHG Vent. Rate : 090 BPM Atrial Rate : 090 BPM P-R Int : 152 ms QRS Dur : 086 ms QT Int : 378 ms P-R-T Axes : 049 043 019 degrees QTc Int : 462 ms Normal sinus rhythm Possible Left atrial enlargement Borderline ECG When compared with ECG of 19-AUG-2023 20:14, (unconfirmed) Nonspecific T wave abnormality, improved in Anterior leads Confirmed by Sudhir Goel ([id number]) on 08/20/2023 4:10:38 PM Referred By: REFERRED SELF Confirmed By:Sudhir Goel
--- NOTE | 2023-08-20 16:17 | Psychiatric Consultation ---
Date of Consultation August 20, 2023 Impression / Recommendations Impression This is a 33-year-old mother of a 2-year-old who came in after an overdose of Tylenol PM and a suicide attempt. This is her second hospitalization within a month. There is a strong family history of depression. Paternal uncle ended his life by suicide. She is under quite a bit of stress with work, raising a child, and financial issues. There also may be a history of trauma. She does not feel that there are any people she can really open up to. Given the situation I think she is in acute danger of and psychiatric hospitalization is warranted once she is medically stabilized. Today I spent about 60 minutes on the case. This included meeting with the patient and her , reviewing the chart, nursing report, documentation, and discussion with the attending physician. (1) Major depressive disorder, recurrent severe without psychotic features: (2) Suicidal ideation: (3) Acetaminophen overdose: Encounter type: initial encounter Injury intent: intentional self-harm Qualified Code(s): T39.1X2A - Poisoning by 4-Aminophenol derivatives, intentional self-harm, initial encounter Plan 1. The patient is still receiving N-acetylcysteine. Once she is medically stabilized no longer requiring an IV, we can regroup to look at a possible transfer to the psychiatric unit. 2. Patient will need a suicide watch with a one-to-one while on the medical unit. Once she is on the psychiatric unit we will put her on suicide prec autions with every 15 minute observation. 3. I encouraged the patient that, once she is admitted to our psychiatric unit, to take part in our therapeutic milieu, attend groups and activities, maintain good hygiene, and try not to isolate. 4. When she comes over to our unit, we will try to restart her duloxetine at 60 mg daily in the next day or 2 to try to help with her depression. It was on the verge of possibly starting to work and I am hesitant to just discontinue it at this point. 5. The manager social responsibility will set up a family meeting with her and we will go over safety and outpatient treatment as well as crisis planning. Psych History Identifying Data Jocelyn, who prefers to be called "Melvi" is a 33-year-old female from [email or web address] who presented to our emergency room after an overdose of Tylenol PM and a suicide attempt. She is currently in the ICU receiving N- acetylcysteine. I was asked by the attending physician to perform a psychiatric evaluation and help in treatment. Chief Complaint "I tried to kill myself." History of Present Illness I know Melvi from her last hospitalization here when I met her on July 24. At that time, she had come into the hospital after she had gotten a hold of a gun and hit it with a plan to use it. We ended up admitting her to the psychiatric unit for safety, further evaluation, and treatment. She was started on Cymbalta and is tolerated it well but is only been on it for a little over 3 weeks. Today, when I meet with her and her she says that yesterday at around 1 PM she overdosed on Tylenol PM. She took about 40 of them and fully expected to from it. At this time, she is glad that she is still alive. However, yesterday and over the last few days she has been feeling very overwhelmed. She thinks she went back to her normal routine a little bit too quickly after leaving the hospital. She started cutting again after being out of the hospital for about a week. Recently, her found a bag of pills and knives that the patient had been hiding and took them away from her. At that point, the patient panicked and went back to their old house (they are in the process of moving to a new apartment) and then took the pills. Soon after, she became scared and called 911. Today, she is feeling somewhat groggy but otherwise not having any terrible symptoms. She has a history of a suicide attempt about 9 years ago when she tried to strangle herself. She works at [employer] in the [employer] department. She and her have been having financial stress. She has a toddler that she is trying to care for. Recently, and therapy, some of her "childhood stuff" came up and that caused her some stress. She says that she has been continuing to have lots of symptoms of depression. Past Psychiatric History Previous Psych History: She has a history of major depression. It sounds like there may be a history of some trauma. Outpatient Services: She has not yet had a chance to see her outpatient med senior planning manager at [facility]. She has seen her PCP up until now. She is in counseling at [facility]. Previous Psych Admissions: Patient was hospitalized here June through July 27. That was her only psychiatric hospitalization in her life. Past Medication Trials: Fluoxetine sertraline and the recently prescribed duloxetine. Allergies Allergy/AdvReac Type Severity Reaction Status Date / Time No Known Allergies Allergy Verified 07/08/22 15:22 Home Medications Medication Instructions Recorded Confirmed Type duloxetine 60 mg capsule,delayed 60 mg PO QAM #30 caps 07/28/23 Rx release Patient History Medical History Obesity Intrahepatic cholestasis of Depression Surgical History S/P tonsillectomy Family History Mother Thyroid disease Grandfather (Paternal) Colorectal cancer Family/Other Breast cancer Mat cousin, PGGM Denies family history of Ovarian cancer Social History Smoking Status: Never smoker Hx Alcohol Use: Yes Alcohol type: wine Hx Substance Use: No Preferred Language: [place] Communication Ability: Effective 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 She was clean but disheveled in hospital gown. Eye contact was good. Speech was normal. Mood was "depressed." Affect was restricted. Thought process was logical and goal-directed. There was no evidence of any hallucinations or delusions. Patient reported suicidal ideation but denied homicidal thoughts. Memory was good; she knew her date of , the president's name, and the capital [facility]. Concentration was good; she could spell the word world backwards easily. No abnormal movements were seen. Gait was not evaluated. Insight and judgment are impaired. Vital Signs (Past 24 Hours): Last Vital Signs Temp 37.2 C 08/20/23 06:46 Pulse 87 08/20/23 11:20 Resp 13 08/20/23 11:20 BP 129/91 08/20/23 11:08 Pulse Ox 100 08/20/23 11:20 O2 Del Method Room Air 08/20/23 03:15 O2 Flow Rate 0 08/19/23 14:47 Exam Statement: Physical exam was performed today by Dr. Guaman. Everything was completely normal other than obesity. Review of Systems Patient denied any cold or flu. No headache or fever. No problems with eyes, ears, nose, teeth, or swallowing. No pain or swelling in their neck. No wheezing, coughing, or shortness of breath. No chest pain, racing heartbeat, or irregular heart rate. No diarrhea, upset stomach, or constipation. No dysuria, problems emptying their bladder, initiating a urine stream, or hematuria. No skin lesions. No breast tenderness or lumps, but the patient is breast-feeding. No muscle weakness, numbness, or tingling. She does feel somewhat shaky. No broken bones. No problems with her joints. No problems with her feet. No history of any bleeding problems. Her last period started on August 06. She says it is very regular in timing and intensity. Results & Data (PSY) Diagnostic Findings CBC was normal. PT and INR were normal. A CMP today showed a chloride high at 109, BUN low at 3, calcium low at 8.1. ALT and AST were normal, but slightly higher than they were when she first got to the emergency room yesterday. TSH yesterday was normal. hCG was negative. Urinalysis showed trace ketones, trace leukocyte esterase, and 10-20 epithelial cells. Otherwise it was normal. Salicylates negative acetaminophen level was 199 yesterday at 2:35 PM, 114 at 5:22 PM, and 5 at 10:03 AM this morning. COVID was negative. Coding Level of Care Code [address] [facility] Intl Hosp Care Lvl 3 Diagnoses Major depressive disorder, recurrent severe without psychotic features F33.2 Suicidal ideation R45.851 Acetaminophen overdose T39.1X2A Encounter type: initial encounter Injury intent: intentional self-harm
[2023-08-20] MEDS: Nursing to Pharmacy Communication SCH (17:37)
[2023-08-21 04:28] LABS: Hematocrit (blood only) 40.3 % (37.0-47.0); Hemoglobin 13.8 g/dl (12.0-16.0); Mean Corpuscular Hemoglobin 30.6 pg (25.0-34.0); Mean Corpuscular Hgb Conc 34.2 g/dL (32.0-36.0); Mean Corpuscular Volume 89.4 fL (80.0-100.0); Mean Platelet Volume 10.1 fL (9.4-12.4); Platelet Count 271 K/uL (130-400); RDW Coefficient of Variation 13.1 % (11.5-14.5); RDW Standard Deviation 43.1 fL (36.4-46.3); Red Blood Count 4.51 M/uL (4.20-5.40); White Blood Count 7.37 K/ul (4.8-10.8)
[2023-08-21 04:30] LABS: Albumin Globulin Ratio 1.7 (0.9-2); Albumin Level 3.8 gm/dl (3.4-5.0); BUN Creatinine Ratio 6.3 (10-20); Bilirubin,Total 0.3 mg/dl (0.2-1.0); Calcium 8.5 mg/dl (8.6-10.3); Est GFR (African American) 137.8 ml/min; Est GFR (Non-African American) 118.9 ml/min; Globulin 2.3 gm/dl (2.5-4.0); Magnesium 1.9 mg/dl (1.7-2.4); Total Protein 6.1 gm/dl (6.0-8.3)
[2023-08-21 05:08] LABS: INR 1.1 (0.9-1.1); Prothrombin Time 11.5 Seconds (9.0-12.0)
--- NOTE | 2023-08-21 11:51 | Hospitalist Progress Note ---
Date of Service August 21, 2023 Assessment & Plan (1) Acetaminophen overdose: Plan: 33-year-old female with past medical history significant for irritable bowel syndrome with diarrhea, morbid obesity, depression, history of suicidal ideation presents with intentional Tylenol overdose. Patient states she took 40 tablets of Tylenol PM around 1:15 PM. Poison control was contacted by ER. Initial Tylenol level was 199 and repeat was 114. QTc was prolonged. Received IV magnesium and potassium supplements. Repeat EKG QTc corrected. Patient was started on N-acetylcysteine. Current bag of N-acetylcysteine will be ending at 2:20 PM tomorrow. Poison control recommended to check labs 4 hours prior to end of current N-acetylcysteine. Based on the labs Poison control will give further recommendations. Patient currently resting comfortably . Seems somewhat depressed. Somewhat tachycardic. Received IV Ativan for Benadryl overdose and tachycardia. Patient denies any headache. No blurred vision. No runny nose or sore throat. No cough. No chest pain or shortness of breath. Appetite is okay. No nausea. No abdominal pain. Normal bowel and bladder movements. Patient states she always has thoughts of hurting herself. Intentional Tylenol PM overdose Suicidal Ideation Acetaminophen level 199>114>5>3 Contacted poison control Received acetylcysteine as recommended by poison control Monitor acetaminophen levels Suicidal precautions Received IV fluids LFTs, INR-- wnl Appreciate psychiatry Input Plan to be discharged to inpatient psychiatry today Hypokalemia Replete electrolytes as needed Monitor Prolonged QTc Avoid QT prolonging drugs Monitor Depression Will hold citalopram for now for prolonged QTc Psychiatry on board DVT Px: SCDs Admission and Anticipated Discharge Date Admission Date: August 19, 2023 Subjective Patient is seen and examined at bedside States feeling well today Offers no new complaints Denies any chest pain, dyspnea, dizziness, nausea, vomiting, abdominal pain Discussed with psychiatry today Review of Systems 2 Review of Systems: All systems reviewed & are unremarkable except as noted in Subjective Physical Exam Physical Exam: Physical Exam: Vitals signs as noted above General Appearance:Obese, no apparent distress Head: normocephalic, Atraumatic Eyes: normal inspection, EOMI Neck: supple, Trachea midline Respiratory/Chest: Normal breath sounds, CTA, No accessory muscle use Cardiovascular: S1, S2, No murmur Abdomen/GI:Soft, Non tender, Bowel sounds present Extremities/Musculoskeletal:normal inspection, no edema Neurologic/Psych:AAOX3, grossly no focal neurological deficits Skin: normal color, warm Results & Data Results & Data Vital Signs (Past 12 Hours) Vital Signs Temp Pulse Pulse Resp BP BP Pulse Ox 08/21/23 10:51 36.6 C 81 17 147/98 H 98 08/21/23 08:00 66 08/21/23 07:25 36.4 C L 77 16 130/83 99 08/21/23 03:38 36.8 C 71 18 126/84 100 O2 Del Method 08/21/23 10:51 Room Air 08/21/23 08:00 08/21/23 07:25 Room Air 08/21/23 03:38 Room Air Laboratory Results Short CBC 08/21/23 Range/Units 03:11 WBC 7.37 (4.8-10.8) K/ul Hgb 13.8 (12.0-16.0) g/dl Hct 40.3 (37.0-47.0) % Plt Count 271 (130-400) K/uL BMP 08/21/23 03:11 Sodium 138 Potassium 4.0 Chloride 109 H Carbon Dioxide 23 BUN 4 L Creatinine 0.64 Glucose 86 Calcium 8.5 L Liver Function 08/21/23 Range/Units 03:11 Total Bilirubin 0.3 (0.2-1.0) mg/dl AST 23 (13-39) U/L ALT 39 (7-52) U/L Alkaline Phosphatase 43 (34-104) U/L Albumin 3.8 (3.4-5.0) gm/dl (1) Acetaminophen overdose Encounter type: initial encounter Injury intent: intentional self-harm Qualified Code(s): T39.1X2A - Poisoning by 4-Aminophenol derivatives, intentional self-harm, initial encounter
--- NOTE | 2023-08-21 11:55 | Discharge Summary ---
Date of Service August 21, 2023 Admission HPI Per Admitting Provider 33-year-old female with past medical history significant for irritable bowel syndrome with diarrhea, morbid obesity, depression, history of suicidal ideation presents with intentional Tylenol overdose. Patient states she took 40 tablets of Tylenol PM around 1:15 PM. Poison control was contacted by ER. Initial Tylenol level was 199 and repeat was 114. QTc was prolonged. Received IV magnesium and potassium supplements. Repeat EKG QTc corrected. Patient was started on N-acetylcysteine. Current bag of N-acetylcysteine will be ending at 2:20 PM tomorrow. Poison control recommended to check labs 4 hours prior to end of current N-acetylcysteine. Based on the labs Poison control will give further recommendations. Patient currently resting comfortably . Seems somewhat depressed. Somewhat tachycardic. Received IV Ativan for Benadryl overdose and tachycardia. Patient denies any headache. No blurred vision. No runny nose or sore throat. No cough. No chest pain or shortness of breath. Appetite is okay. No nausea. No abdominal pain. Normal bowel and bladder movements. Patient states she always has thoughts of hurting herself. Past medical history. As mentioned above Past surgical history. Tonsillectomy Social history. . No smoking. Alcohol rare. No drug use. Family history. Father had PTSD. Parkinson's. Obesity. Mother had depression. Fibromyalgia. Obesity. Sister has ADHD. Maternal grandfather had brain cancer. Maternal grandmother had lung cancer. Uncle had bone cancer. Aunt had heart disorder Admission Exam Per Admitting Provider General- Not in distress Head- atraumatic Eyes- PERRL. ENT- oropharynx clear Neck- supple, no JVD. Lungs- clear to auscultation no wheezing or crackles. Heart- regular rhythm; Tachycardia, no murmur, no gallop. Abdomen- normal bowel sounds, soft, nontender, no distension. Extremities- no pretibial edema, no erythema seen. Neuro- alert, oriented x 3; PERRL, no facial palsy; no dysarthria; obeys simple commands. Principal Diagnosis Intentional Acetaminophen Overdose Suicidal Ideation Depression Discharge Data Allergies Allergy/AdvReac Type Severity Reaction Status Date / Time No Known Allergies Allergy Verified 07/08/22 15:22 Consultations 08/19/23 18:45 ED Decision to Admit Stat 08/19/23 21:45 Consult Psychiatry Routine Procedures Performed Laboratory Results WBC 7.37 K/ul (4.8-10.8) 08/21/23 03:11 RBC 4.51 M/uL (4.20-5.40) 08/21/23 03:11 Hgb 13.8 g/dl (12.0-16.0) 08/21/23 03:11 Hct 40.3 % (37.0-47.0) 08/21/23 03:11 MCV 89.4 fL (80.0-100.0) 08/21/23 03:11 MCH 30.6 pg (25.0-34.0) 08/21/23 03:11 MCHC 34.2 g/dL (32.0-36.0) 08/21/23 03:11 RDW Std Deviation 43.1 fL (36.4-46.3) 08/21/23 03:11 RDW Coeff of Deng 13.1 % (11.5-14.5) 08/21/23 03:11 Plt Count 271 K/uL (130-400) 08/21/23 03:11 MPV 10.1 fL (9.4-12.4) 08/21/23 03:11 Immature Gran % (Auto) 0.3 % 08/20/23 10:03 Neut % (Auto) 63.6 % 08/20/23 10:03 Lymph % (Auto) 28.2 % 08/20/23 10:03 [place] % (Auto) 6.7 % 08/20/23 10:03 Eos % (Auto) 0.6 % 08/20/23 10:03 Baso % (Auto) 0.6 % 08/20/23 10:03 Neut # (Auto) 4.57 K/uL (1.40-6.50) 08/20/23 10:03 Lymph # (Auto) 2.02 K/uL (1.20-3.40) 08/20/23 10:03 [place] # (Auto) 0.48 K/uL (0.11-0.59) 08/20/23 10:03 Eos # (Auto) 0.04 K/uL (0.00-0.50) 08/20/23 10:03 Baso # (Auto) 0.04 K/uL (0.00-0.20) 08/20/23 10:03 Immature Gran # (Auto) 0.02 K/uL (0.01-0.20) 08/20/23 10:03 PT 11.5 Seconds (9.0-12.0) 08/21/23 03:11 INR 1.1 (0.9-1.1) 08/21/23 03:11 Sodium 138 mmol/L (136-145) 08/21/23 03:11 Potassium 4.0 mmol/L (3.5-5.1) 08/21/23 03:11 Chloride 109 mmol/L (98-107) H 08/21/23 03:11 Carbon Dioxide 23 mmol/L (21-32) 08/21/23 03:11 Anion Gap 6 (3-11) 08/21/23 03:11 BUN 4 mg/dl (6-23) L 08/21/23 03:11 Creatinine 0.64 mg/dl (0.6-1.2) 08/21/23 03:11 Est Cr Clr Drug Dosing 180.0 ml/min 08/21/23 03:11 Est GFR ( Amer) 137.8 ml/min 08/21/23 03:11 Est GFR (Non-Af Amer) 118.9 ml/min 08/21/23 03:11 BUN/Creatinine Ratio 6.3 (10-20) L 08/21/23 03:11 Glucose 86 mg/dl (70-99(Fasting)) 08/21/23 03:11 Calcium 8.5 mg/dl (8.6-10.3) L 08/21/23 03:11 Magnesium 1.9 mg/dl (1.7-2.4) 08/21/23 03:11 Total Bilirubin 0.3 mg/dl (0.2-1.0) 08/21/23 03:11 AST 23 U/L (13-39) 08/21/23 03:11 ALT 39 U/L (7-52) 08/21/23 03:11 Alkaline Phosphatase 43 U/L (34-104) 08/21/23 03:11 Total Protein 6.1 gm/dl (6.0-8.3) 08/21/23 03:11 Albumin 3.8 gm/dl (3.4-5.0) 08/21/23 03:11 Globulin 2.3 gm/dl (2.5-4.0) L 08/21/23 03:11 Albumin/Globulin Ratio 1.7 (0.9-2) 08/21/23 03:11 TSH 1.610 uIu/ml (0.300-4.500) 08/19/23 14:35 HCG, Qual Negative (Negative) 08/19/23 14:35 Urine Color Yellow 08/19/23 14:19 Urine Appearance Clear (Clear) 08/19/23 14:19 Urine pH 6.5 (4.5-7.5) 08/19/23 14:19 Ur Specific [place] 1.007 (1.000-1.030) 08/19/23 14:19 Urine Protein Negative (Negative) 08/19/23 14:19 Urine Glucose (UA) Negative (Negative) 08/19/23 14:19 Urine Ketones Trace (Negative) H 08/19/23 14:19 Urine Blood Negative (Negative) 08/19/23 14:19 Urine Nitrite Negative (Negative) 08/19/23 14:19 Urine Bilirubin Negative (Negative) 08/19/23 14:19 Urine Urobilinogen Negative (Negative) 08/19/23 14:19 Ur Leukocyte Esterase Trace (Negative) H 08/19/23 14:19 Urine WBC (Auto) 1-5 /hpf (0-5) 08/19/23 14:19 Urine RBC (Auto) 0-4 /hpf (0-4) 08/19/23 14:19 U Hyaline Cast (Auto) 0 /lpf (0-5) 08/19/23 14:19 U Epithel Cells (Auto) 10-20 /lpf (0-5) H 08/19/23 14:19 Urine Bacteria (Auto) Negative (Negative) 08/19/23 14:19 Salicylates < 3.0 mg/dl (3.0-30) L 08/19/23 14:35 Urine Opiates Screen Neg (Neg) 08/19/23 14:19 Ur Methadone, Qual Neg (Neg) 08/19/23 14:19 Acetaminophen < 3 ug/ml (10-30) L 08/21/23 03:11 Urine Barbiturates Neg (Neg) 08/19/23 14:19 Ur Phencyclidine (PCP) Neg (Neg) 08/19/23 14:19 U Amphetamin/Meth Scrn Neg (Neg) 08/19/23 14:19 MDMA (Ecstasy) Screen Neg (Neg) 08/19/23 14:19 U Benzodiazepines Scrn Neg (Neg) 08/19/23 14:19 Ur Cocaine Metabolite Neg (Neg) 08/19/23 14:19 U Marijuana (THC) Screen Neg (Neg) 08/19/23 14:19 Ethyl Alcohol mg/dL < 10.0 mg/dl (<10.0) 08/19/23 14:35 SARS-CoV-2, RNA, NAAT NEGATIVE (NEGATIVE) 08/19/23 14:[address] 08/19/23 14:53 CT SCAN OF THE BRAIN WITHOUT IV CONTRAST CLINICAL HISTORY: Change in mental status COMPARISON STUDY: No priors. TECHNIQUE: Unenhanced axial CT scan of the brain is performed from the vertex to the skull base. A dose lowering technique was utilized adhering to the principles of ALARA. CT DOSE: 625.8 mGy.cm FINDINGS: Brain parenchyma: The brain parenchyma is normal in appearance. There is no hemorrhage, mass effect, or evidence of acute territorial ischemia by CT criteria. M[place]-white matter differentiation is preserved. No extra-axial fluid collection is seen. Ventricles, sulci, cisterns: Normal in configuration. Intracranial vasculature: The visualized intracranial vasculature at the skull base is normal in appearance. Calvarium: Unremarkable. Sinuses and mastoids: The visualized paranasal sinuses are clear. The mastoid air cells are well pneumatized. Orbits: The bony orbits are grossly intact. IMPRESSION: No acute intracranial abnormality. ACT 112: Negative or not required by law. Electronically signed by: Devyn Castillo M.D. 08/19/2023 3:31 PM Ordered Studies 08/19/23 14:53 CT head/brain wo con Stat Hospital Course (1) Acetaminophen overdose: 33-year-old female with past medical history significant for irritable bowel syndrome with diarrhea, morbid obesity, depression, history of suicidal ideation presents with intentional Tylenol overdose. Patient states she took 40 tablets of Tylenol PM around 1:15 PM. Poison control was contacted by ER. Initial Tylenol level was 199 and repeat was 114. QTc was prolonged. Received IV magnesium and potassium supplements. Repeat EKG QTc corrected. Patient was started on N-acetylcysteine. Current bag of N-acetylcysteine will be ending at 2:20 PM tomorrow. Poison control recommended to check labs 4 hours prior to end of current N-acetylcysteine. Based on the labs Poison control will give further recommendations. Patient currently resting comfortably . Seems somewhat depressed. Somewhat tachycardic. Received IV Ativan for Benadryl overdose and tachycardia. Patient denies any headache. No blurred vision. No runny nose or sore throat. No cough. No chest pain or shortness of breath. Appetite is okay. No nausea. No abdominal pain. Normal bowel and bladder movements. Patient states she always has thoughts of hurting herself. Intentional Tylenol PM overdose Suicidal Ideation Acetaminophen level 199>114>5>3 Contacted poison control Received acetylcysteine as recommended by poison control Monitor acetaminophen levels Suicidal precautions Received IV fluids LFTs, INR-- wnl Appreciate psychiatry Input Plan to be discharged to inpatient psychiatry today Hypokalemia Replete electrolytes as needed Monitor Prolonged QTc Avoid QT prolonging drugs Monitor Depression Will hold citalopram for now for prolonged QTc Psychiatry on board DVT Px: SCDs Total Time Total Time Spent Total Time Spent (In Minutes): 58 minutes Discharge Plan Discharge Items Patient Disposition: Transfer Behavioral Health Fac Reason For Visit: INTENTIONAL OVERDOSE Discharge Diagnosis: Intentional Acetaminophen Overdose Suicidal Ideation Depression Activity: Per Instructions section Exercise/Sports: Gradually increase as tolerated Non-emergency contact: Primary Care Provider and Psychiatrist Call non-emergency contact if: you have any medication questions, your symptoms worsen and your pain is concerning for you Follow-up/Referrals: Ascencion Berry, [Primary Care Provider] - Diet: Regular and Vegetarian (Lacto-Ovo) Addtl Attending Provider Instructions: Follow-up with your primary care physician in 1 week upon discharge from rehab facility Follow-up with your psychiatrist as advised Seek immediate medical attention if your symptoms reoccur or worsen Please take all medications as instructed on discharge list below. Please call if you have any questions or problems. You can reach a [facility] hospitalist on duty at [facility] 24 hours a day by calling [phone] Pending Studies at Discharge: No Stand-Alone Forms: [facility] Medications and DC Order Prescriptions: Continued duloxetine 60 mg Capsule,Delayed Release(Dr/Ec) 60 mg PO QAM Qty: 30 0RF Discharge Orders: Discharge Order (Routine); Ordered 08/21/23 Ordered By: Alber Guaman Admission Data Admit Date/Time: 08/19/23 18:50 Attending Provider: Alber Guaman Admit Provider: Elvi Young Primary Care Provider: Ascencion Berry Other Providers: Elvi Young; Tania Persaud; Christine Olivera; Oj Anna; Carson Seymour Jr; Peggy Olson; Susan Sanat
--- NOTE | 2023-08-21 12:28 | Electrocardiogram Report ---
Test Reason : Blood Pressure : / mmHG Vent. Rate : 072 BPM Atrial Rate : 072 BPM P-R Int : 134 ms QRS Dur : 092 ms QT Int : 396 ms P-R-T Axes : 055 048 016 degrees QTc Int : 433 ms Normal sinus rhythm Normal ECG When compared with ECG of 20-AUG-2023 06:33, No significant change was found Confirmed by Sudhir Goel ([id number]) on 08/21/2023 12:28:48 PM Referred By: REFERRED SELF Confirmed By:Sudhir Goel
--- NOTE | 2023-08-21 13:09 | History & Physical ---
Date of Service August 21, 2023 Impression / Recommendations Impression This is a 33-year-old mother of a 2-year-old who came in after an overdose of Tylenol PM and a suicide attempt. This is her second hospitalization within a month. There is a strong family history of depression. Paternal uncle ended his life by suicide. She is under quite a bit of stress with work, raising a child, and financial issues. There also may be a history of trauma. She does not feel that there are any people she can really open up to. Given the situation I think she is in acute danger of and psychiatric hospitalization is warranted once she is medically stabilized. Today I spent about 55 minutes on the case. This included meeting with the patient, reviewing the chart, nursing report, documentation, and discussion with Dr. Guaman. (1) Major depressive disorder, recurrent severe without psychotic features: (2) Suicide attempt by acetaminophen overdose: Plan 1. Patient will be admitted to 3 . for safety, further evaluation, and treatment. We will have her in a regular room. We will have her on suicide precautions with every 15 minute observations for safety. 2. I encouraged the patient to take part in our therapeutic milieu, attend groups and activities, maintaining good hygiene, and try not to isolate. 3. We are going to resume duloxetine 60 mg daily. She had only been on it for just over 3 weeks so it should be about to start working if it is going to. I again reviewed the uses, side effects, and time course and she gave informed consent. 4. Our medical people are available to evaluate and treat any medical issues that arise during her hospitalization. 5. explosives worker will try to set up a family meeting in the next few days. 6. Disposition will likely be back home, but at this time I would like to c onsider partial hospitalization or intensive outpatient treatment after discharge from our unit. Suicide Risk Level Suicide Risk Level: High-Moderate (q15 min suicide checks) Psychiatric History Identifying Data Jocelyn, who prefers to be called "Melvi" is a 33-year-old female from [place] who presented to our emergency room after an overdose of Tylenol PM and a suicide attempt. She is currently in the ICU receiving N- acetylcysteine. I was asked by the attending physician to perform a psychiatric evaluation and help in treatment. Chief Complaint "I tried to kill myself." History of Present Illness Per my psychiatric consultation from 08/20/2023: I know Melvi from her last hospitalization here when I met her on July 24. At that time, she had come into the hospital after she had gotten a hold of a gun and hit it with a plan to use it. We ended up admitting her to the psychiatric unit for safety, further evaluation, and treatment. She was started on Cymbalta and is tolerated it well but is only been on it for a little over 3 weeks. Today, when I meet with her and her she says that yesterday at around 1 PM she overdosed on Tylenol PM. She took about 40 of them and fully expected to from it. At this time, she is glad that she is still alive. However, yesterday and over the last few days she has been feeling very overwhelmed. She thinks she went back to her normal routine a little bit too quickly after leaving the hospital. She started cutting again after being out of the hospital for about a week. Recently, her found a bag of pills and knives that the patient had been hiding and took them away from her. At that point, the patient panicked and went back to their old house (they are in the process of moving to a new apartment) and then took the pills. Soon after, she became scared and called 911. Today, she is feeling somewhat groggy but otherwise not having any terrible symptoms. She has a history of a suicide attempt about 9 years ago when she tried to strangle herself. She works at [employer] in the [employer] department. She and her have been having financial stress. She has a toddler that she is trying to care for. Recently, and therapy, some of her "childhood stuff" came up and that caused her some stress. She says that she has been continuing to have lots of symptoms of depression. Today I met with the patient, received nursing report, and reviewed her chart. I also discussed the case with Dr. Guaman via text. Yesterday, I had seen the patient with her present, but he was not here today. Patient has been moved to the second floor from the ICU and is doing much better. She is now finished with her N-acetylcysteine. Dr. Guaman feels that she will be able to transfer to the psychiatric unit today. Patient was able to get some sleep but has had some loose stools lately. She ate some as well. She is physically doing okay after the overdose of Tylenol PM. She denied suicidal ideation. She feels safe here in the hospital. She denies homicidal thoughts. She denies hallucinations. She says that her relationship with her is actually very good but she does not open up with him very much. Past Psychiatric History Previous Psych History: She has a history of major depression. There may be a history of trauma. Outpatient Services: She has not yet had a chance to see her outpatient psychiatric med resource manager forester at [facility]. She has been seeing her PCP for medications up until now. She is in counseling at [facility]. Previous Psych Admissions: Patient was hospitalized here at [facility] June through July 27 of this year. That is her only lifetime psychiatric hospitalization up until now. Past Medication Trials: Patient has been on fluoxetine, sertraline, and more recently duloxetine. Past Head Trauma/Neuro History Past medical history: Patient does not have any chronic medical issues other than irritable bowel syndrome. The only hospitalization was for childbirth. She has had her tonsils and adenoids removed. No history of seizures. No history of head trauma with loss of consciousness. Allergies Allergy/AdvReac Type Severity Reaction Status Date / Time No Known Allergies Allergy Verified 07/08/22 15:22 Home Medications Medication Instructions Recorded Confirmed Type duloxetine 60 mg capsule,delayed 60 mg PO QAM #30 caps 07/28/23 Rx release Family History Family Mental Health History Comment: Mother has a history of anxiety and depression. Father has a history of depression and alcoholism. Paternal aunt has a history of depression. Paternal uncle ended his life by suicide. Patient does not know if anybody has ever attempted suicide. Sister has a history of anxiety and ADHD. Maternal cousin has autism. Paternal grandfather has a history of drug and alcohol issues. Maternal grandmother has a history of alcoholism. There is a lot of alcoholism on both sides of the family. Alcohol History Hx of Alcohol Use Over the Past 12 Months: Yes Smoking Use Smoking Status: Never smoker Personal History Beliefs That Will Affect Care: None Additional Comments: Patient is moving from [place] to [place], [place]. They have a townhouse. She has a 2-year-old son. Patient has her masters in education. 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 Patient is not involved in any organized activities or alevism. She has no legal issues. She says that she feels like she could not talk mostly to her and her sister as well as a friend but she often will hold her self back from giving them too much information. Patient History Medical History Obesity Intrahepatic cholestasis of Depression Surgical History S/P tonsillectomy Family History Mother Thyroid disease Grandfather (Paternal) Colorectal cancer Family/Other Breast cancer Mat cousin, PGGM Denies family history of Ovarian cancer Social History Smoking Status: Never smoker Hx Alcohol Use: Yes Alcohol type: wine Hx Substance Use: No Preferred Language: [place] Communication Ability: Effective Gut Dropper Required: No Beliefs That Will Affect Care: None marital status: marital status details: Raymon (37) [phone] Current Living Situation: Spouse Current Living Situation Comment: lives with spouse, 2 cats, some reptiles, spouse to change litter current occupational status: employed 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 No headache or fever. No problems with eyes, ears, nose, teeth, or swallowing. No pain or swelling in their neck. No wheezing, coughing, or shortness of breath. No chest pain, racing heartbeat, or irregular heart rate. She is describing some loose stools or diarrhea, but no upset stomach or constipation. No dysuria, problems emptying their bladder, initiating a urine stream, or hematuria. No skin lesions. No breast tenderness or lumps, but the patient is breast-feeding. No muscle weakness, numbness, or tingling. She does feel somewhat shaky. No broken bones. No problems with her joints. No problems with her feet. No history of any bleeding problems. Her last period started on August 06. She says it is very regular in timing and intensity. Physical Exam Psychiatric: Patient was alert and oriented x 3. She was clean but disheveled in hospital gown. Eye contact was good. Speech was normal. Mood was "depressed." Affect was restricted. Thought process was logical and goal-directed. There was no evidence of any hallucinations or delusions. Patient reported suicidal ideation but denied homicidal thoughts. Memory was good; she knew her date of , the service correspondent's name, and the capital of [place]. Concentration was good; she could perform serial sevens quickly and easily. No abnormal movements were seen. Gait was not evaluated. Insight and judgment are impaired. Vital Signs (Past 24 Hours): Last Vital Signs Temp 36.6 C 08/21/23 10:51 Pulse 81 08/21/23 10:51 Resp 17 08/21/23 10:51 BP 147/98 H 08/21/23 10:51 Pulse Ox 98 08/21/23 10:51 O2 Del Method Room Air 08/21/23 10:51 O2 Flow Rate 0 08/19/23 14:47 Exam Statement: A physical exam was performed by Dr. Guaman today. Everything was completely normal. Results & Data ([facility]) Laboratory Results Laboratory Results - last 24 hr 08/21/23 03:11 WBC 7.37 RBC 4.51 Hgb 13.8 Hct 40.3 MCV 89.4 MCH 30.6 MCHC 34.2 RDW Std Deviation 43.1 RDW Coeff of Deng 13.1 Plt Count 271 MPV 10.1 PT 11.5 INR 1.1 Sodium 138 Potassium 4.0 Chloride 109 H Carbon Dioxide 23 Anion Gap 6 BUN 4 L Creatinine 0.64 Est Cr Clr Drug Dosing 180.0 Est GFR ( Amer) 137.8 Est GFR (Non-Af Amer) 118.9 BUN/Creatinine Ratio 6.3 L Glucose 86 Calcium 8.5 L Magnesium 1.9 Total Bilirubin 0.3 AST 23 ALT 39 Alkaline Phosphatase 43 Total Protein 6.1 Albumin 3.8 Globulin 2.3 L Albumin/Globulin Ratio 1.7 Acetaminophen < 3 L
== END 2023-08-21 14:37 | DRG 918 ==
LOC: ED 14:02 → SUATTDRO 18:50 → EDINP 18:50 → 1E 21:45 → 2S 08-20 21:35
DX: S61.512A Laceration without foreign body of left wrist, initial encounter; F33.2 Major depressive disorder, recurrent severe without psychotic features; T39.1X2A Poisoning by 4-Aminophenol derivatives, intentional self-harm, initial encounter; Z81.8 Family history of other mental and behavioral disorders; K58.0 Irritable bowel syndrome with diarrhea; F32.A Depression, unspecified; E66.01 Morbid (severe) obesity due to excess calories; X78.8XXA Intentional self-harm by other sharp object, initial encounter; Y92.019 Unspecified place in single-family (private) house as the place of occurrence of the external cause; E87.6 Hypokalemia

== ENCOUNTER 2023-08-21 10:07 | Inpatient (IN) ==
[2023-08-21] MEDS ORDERED: MAGNESIUM HYDROXIDE SUSP 30 ML UDC PO PRN (10:10)
[2023-08-21] MEDS ORDERED: ALUMINUM/MAGNESIUM SUSP 30 ML UDC PO PRN (10:10)
[2023-08-21] MEDS ORDERED: BISMUTH SUBSALICYLATE LIQD 236 ML PO PRN (10:10)
[2023-08-21] MEDS ORDERED: SODIUM CHLORIDE 0.65% NA SOLN 45 ML (OCEAN) PRN (10:10)
[2023-08-22] MEDS: DULoxetine HCL 60 MG CAP PO SCH (08:17)
--- NOTE | 2023-08-22 14:53 | Psychiatric Progress Note ---
Date of Service August 22, 2023 Impression / Recommendations Impression This is a 33-year-old mother of a 2-year-old who came in after an overdose of Tylenol PM and a suicide attempt. This is her second hospitalization within a month. There is a strong family history of depression. Paternal uncle ended his life by suicide. She is under quite a bit of stress with work, raising a child, and financial issues. There also may be a history of trauma. She does not feel that there are any people she can really open up to. Given the situation I think she is in acute danger of and psychiatric hospitalization is warranted once she is medically stabilized. 08/22/2023: Right now, I do not think I can trust her to be safe. Given her history of minimizing and then being secretive about guns and scalpels and pills at home, I think we have to keep her here for safety and further treatment. I think she is minimizing today. I still believe she is in acute danger to herself. Today I spent 38 minutes on the case. This included meeting with the patient, reviewing the chart, nursing report, multidisciplinary treatment team meeting, orders, and documentation. (1) Major depressive disorder, recurrent severe without psychotic features: (2) Suicide attempt by acetaminophen overdose: Plan 08/22/2023: We are going to continue with her current level of observation and precautions. This includes suicide precautions and every 15 minute observation. Will continue with the Melonie and hopefully that we will start working in the next week or 2. I encouraged her to keep going to groups and activities to help distract herself and maybe learn some better strategies for dealing with her depression. Staff will be vigilant. I will also discuss with the social workers the need to get her into intensive outpatient treatment, preferably [id number] rather than online. Suicide Risk Level Suicide Risk Level: High-Moderate (q15 min suicide checks) Risk Factors Assessment Do You Have Access To A Gun?: No Interval History Identifying Information Jocelyn, who prefers to be called "Melvi," is a 33-year-old female from [employer] who presented to our emergency room after an overdose of Tylenol PM and a suicide attempt. She was admitted to our psychiatric unit from the medical floor on August 20. Chief Complaint "I tried to kill myself." Review of Systems Sleep Information Total Hours of Sleep: 7 Meal Information Percent Meal Consumed - Breakfast: 100 Percent Meal Consumed - Dinner: 100 Subjective Subjective Today I met with the patient, received nursing report, and reviewed her chart. We also had a multidisciplinary treatment team meeting to discuss her care. This is in our hospital after a severe overdose of Tylenol PM and a suicide attempt requiring N-acetylcysteine. Nurses report that they heard that she had purchased scalpels on the line in order to end her life and bleed to . She even admitted that when she was here last time she had been minimizing her symptoms to get out of the hospital more quickly. She has a lot of guilt about that. She has been out of her room and going to groups. She has been pleasant. She has been journaling at times. When I met with her today, she says she had a visit with her . The baby is currently with her mother right now as the parents came up to visit. She describes her suicidal ideation at 6 out of 10 where 10 is the worst it could ever be. She did sleep okay. She said that she was physically feeling okay although a little bit dizzy. She started taking her Cymbalta again this mor deb. She says her appetite is "fine" and she ate about 70% of breakfast. She has been trying to distract herself by journaling and reading books. She feels comfortable in groups and is getting along well with her peers. We also reviewed the discharge plan for outpatient care and she is more interested in IOP and a [id number] version if possible rather than online. Physical Exam Psychiatric Patient was alert and cooperative. She was clean and relatively well-groomed. Speech was normal. Eye contact was somewhat poor. Mood was described as "fine." Affect was very restricted. I almost felt like she was going to start crying. Thought process was logical but not very goal-directed. There was no evidence of any hallucinations or delusions. She denied homicidal thoughts but is still having 6 out of 10 suicidal thoughts as I described above. Memory and concentration seem good. No abnormal movements were seen. Gait was normal. Insight and judgment are still poor. Vital Signs (Past 24 Hours) Last Vital Signs Temp 36.7 C 08/22/23 06:29 Pulse 91 H 08/22/23 06:30 Resp 16 08/22/23 06:29 BP 122/83 08/22/23 06:30 Pulse Ox 100 08/22/23 06:29 O2 Del Method Room Air 08/22/23 06:29 Results & Data ([facility]) Current Inpatient Medications Current Inpatient Medications: Current Inpatient Medications Al Hydrox/Mg Hydrox/Simethicone (Aluminum/Magnesium Susp 30 Ml Udc) 30 ml PO Q4H PRN PRN Reason: GI Upset Stop: 09/20/23 10:09 Bismuth Subsalicylate (Bismuth Subsalicylate Liqd 236 Ml) 15 ml PO PRN PRN PRN Reason: Loose Stool Stop: 09/20/23 10:09 Duloxetine HCl (Duloxetine Hcl 60 Mg Cap) 60 mg PO QAM FARIBA Stop: 09/21/23 08:59 Last Admin: 08/22/23 08:17 Dose: 60 mg Hydroxyzine HCl (Hydroxyzine Hcl 25 Mg Tab) 50 mg PO HSZ PRN PRN Reason: Insomnia Stop: 09/20/23 10:09 Hydroxyzine HCl (Hydroxyzine Hcl 25 Mg Tab) 25 mg PO Q4H PRN PRN Reason: Anxiety Stop: 09/20/23 10:09 Magnesium Hydroxide (Magnesium Hydroxide Susp 30 Ml Udc) 30 ml PO DAILY PRN PRN Reason: Constipation Stop: 09/20/23 10:09 Sodium Chloride (Sodium Chloride 0.65% Na Soln 45 Ml ([place])) 1 - 2 sprays NA PRN PRN PRN Reason: Nasal Dryness/Congestion Stop: 09/20/23 10:09 Mental Health & Subst Abuse Tx Therapist Name of Therapist: Mike Romero [facility] Post Discharge Appointments Primary Care Physician Name Of Family Doctor/PCP: Dr. Ascencion Berry
[2023-08-22] MEDS: hydrOXYzine HCl 25 MG TAB PO PRN (22:05)
--- NOTE | 2023-08-23 15:34 | Psychiatric Progress Note ---
Date of Service August 23, 2023 Impression / Recommendations Impression This is a 33-year-old mother of a 2-year-old who came in after an overdose of Tylenol PM and a suicide attempt. This is her second hospitalization within a month. There is a strong family history of depression. Paternal uncle ended his life by suicide. She is under quite a bit of stress with work, raising a child, and financial issues. There also may be a history of trauma. She does not feel that there are any people she can really open up to. Given the situation I think she is in acute danger of and psychiatric hospitalization is warranted once she is medically stabilized. 08/22/2023: Right now, I do not think I can trust her to be safe. Given her history of minimizing and then being secretive about guns and scalpels and pills at home, I think we have to keep her here for safety and further treatment. I think she is minimizing today. I still believe she is in acute danger to herself. 08/23/2023: Patient is starting to show some glimpses of improvement, but I do not know if I can trust it. She has a history of minimizing and admitted that she left the hospital too early last time. I am glad to see her participating in trying hard. I still feel she is in acute danger to herself and requires inpatient hospitalization. Today I spent 28 minutes on the case. This included meeting with the patient, reviewing the chart, nursing report, multidisciplinary team meeting, orders, and documentation. (1) Major depressive disorder, recurrent severe without psychotic features: (2) Suicide attempt by acetaminophen overdose: Plan 08/22/2023: We are going to continue with her current level of observation and precautions. This includes suicide precautions and every 15 minute observation. Will continue with the Cymbalta and hopefully that we will start working in the next week or 2. I encouraged her to keep going to groups and activities to help distract herself and maybe learn some better strategies for dealing with her depression. Staff will be vigilant. I will also discuss with the social workers the need to get her into intensive outpatient treatment, preferably [id number] rather than online. 08/23/2023: We are going to continue with our current level of observation and precautions. We will continue with Cyfilomenaalta. I encouraged her to keep working hard and going to groups and activities. We talked about intensive outpatient treatment. Will see how the visits with her family go today. Suicide Risk Level Suicide Risk Level: Moderate (q15 min suicide checks) Risk Factors Assessment Do You Have Access To A Gun?: No Interval History Identifying Information Jocelyn, who prefers to be called "Melvi," is a 33-year-old female from [place] who presented to our emergency room after an overdose of Tylenol PM and a suicide attempt. She was admitted to our psychiatric unit from the medical floor on August 20. Chief Complaint "I tried to kill myself." Review of Systems Sleep Information Total Hours of Sleep: 7 Sleep Comments: Required PRN Vistaril Meal Information Percent Meal Consumed - Breakfast: 100 Percent Meal Consumed - Lunch: 100 Percent Meal Consumed - Dinner: 100 Subjective Subjective Today I met with the patient, received nursing report, and reviewed her chart. We also had a multidisciplinary team meeting to discuss her care. The patient is in our hospital after a severe overdose of Tylenol PM in a suicide attempt. Staff report that she has been doing okay on the unit and going to groups. She has been interacting with her peers. She showered. Yesterday, she described her mood at 5 out of 10. She has been journaling. Staff report that the laceration on her left wrist looks good. No signs of any infection. She took some Vistaril last night to help sleep which was helpful and she slept through the night. When I met with her today, she said that she slept well. She described her mood today as "good and relieved." She says she feels so relieved because she was finally able to have a good night sleep and it has been a long time. The dizziness is gone away completely. She is looking forward is having some visits today with her and father. She describes her suicidal ideation at 3 out of 10 where 10 is the worst it could ever be. We talked a little bit about how her self-harm tends to be a "knee-jerk reaction." Appetite has been good. Physical Exam Psychiatric Patient was alert and cooperative. She was clean and well-groomed. Speech was normal. Eye contact was better. Mood was described as "good and relieved." Affect was a bit brighter. Thought process was logical and more goal-directed. There was no evidence of any hallucinations or delusions. She denied homicidal thoughts but is still having 3 out of 10 suicidal thoughts as I described above (an improvement). Memory and concentration seem good. No abnormal movements were seen. Gait was normal. Insight and judgment are still poor. Vital Signs (Past 24 Hours) Last Vital Signs Temp 37.1 C 08/23/23 06:37 Pulse 96 H 08/23/23 06:37 Resp 16 08/23/23 06:37 BP 142/75 H 08/23/23 06:39 Pulse Ox 99 08/23/23 06:37 O2 Del Method Room Air 08/23/23 06:37 Results & Data ([facility]) Current Inpatient Medications Current Inpatient Medications: Current Inpatient Medications Al Hydrox/Mg Hydrox/Simethicone (Aluminum/Magnesium Susp 30 Ml Udc) 30 ml PO Q4H PRN PRN Reason: GI Upset Stop: 09/20/23 10:09 Bismuth Subsalicylate (Bismuth Subsalicylate Liqd 236 Ml) 15 ml PO PRN PRN PRN Reason: Loose Stool Stop: 09/20/23 10:09 Duloxetine HCl (Duloxetine Hcl 60 Mg Cap) 60 mg PO QAM FARIBA Stop: 09/21/23 08:59 Last Admin: 08/23/23 08:23 Dose: 60 mg Hydroxyzine HCl (Hydroxyzine Hcl 25 Mg Tab) 50 mg PO HSZ PRN PRN Reason: Insomnia Stop: 09/20/23 10:09 Last Admin: 08/22/23 22:05 Dose: 50 mg Hydroxyzine HCl (Hydroxyzine Hcl 25 Mg Tab) 25 mg PO Q4H PRN PRN Reason: Anxiety Stop: 09/20/23 10:09 Magnesium Hydroxide (Magnesium Hydroxide Susp 30 Ml Udc) 30 ml PO DAILY PRN PRN Reason: Constipation Stop: 09/20/23 10:09 Sodium Chloride (Sodium Chloride 0.65% Na Soln 45 Ml ([place])) 1 - 2 sprays NA PRN PRN PRN Reason: Nasal Dryness/Congestion Stop: 09/20/23 10:09 Mental Health & Subst Abuse Tx Therapist Name of Therapist: Mike Romero [facility] Post Discharge Appointments Primary Care Physician Name Of Family Doctor/PCP: Dr. Ascencion Berry
--- NOTE | 2023-08-24 13:13 | Psychiatric Progress Note ---
Date of Service August 24, 2023 Impression / Recommendations Impression This is a 33-year-old mother of a 2-year-old who came in after an overdose of Tylenol PM and a suicide attempt. This is her second hospitalization within a month. There is a strong family history of depression. Paternal uncle ended his life by suicide. She is under quite a bit of stress with work, raising a child, and financial issues. There also may be a history of trauma. She does not feel that there are any people she can really open up to. Given the situation I think she is in acute danger of and psychiatric hospitalization is warranted once she is medically stabilized. 08/22/2023: Right now, I do not think I can trust her to be safe. Given her history of minimizing and then being secretive about guns and scalpels and pills at home, I think we have to keep her here for safety and further treatment. I think she is minimizing today. I still believe she is in acute danger to herself. 08/23/2023: Patient is starting to show some glimpses of improvement, but I do not know if I can trust it. She has a history of minimizing and admitted that she left the hospital too early last time. I am glad to see her participating in trying hard. I still feel she is in acute danger to herself and requires inpatient hospitalization. 08/24/2023: I am still very concerned. She is getting down on herself because she is not getting better on her timetable. She also seems like she is distancing herself from her family. I think she is at higher risk of suicide at this time. I will talk to her tomorrow about possibly making a medication change if she is not seeing much improvement. In the meantime, I encouraged her to keep going to groups and activities and behavioral activation. Today I spent 27 minutes on the case. This included meeting with the patient, reviewing the chart, nursing report, and documentation. (1) Major depressive disorder, recurrent severe without psychotic features: (2) Suicide attempt by acetaminophen overdose: Plan 08/22/2023: We are going to continue with her current level of observation and precautions. This includes suicide precautions and every 15 minute observation. Will continue with the Melonie and hopefully that we will start working in the next week or 2. I encouraged her to keep going to groups and activities to help distract herself and maybe learn some better strategies for dealing with her depression. Staff will be vigilant. I will also discuss with the social workers the need to get her into intensive outpatient treatment, preferably [id number] rather than online. 08/23/2023: We are going to continue with our current level of observation and precautions. We will continue with Cymbalta. I encouraged her to keep working hard and going to groups and activities. We talked about intensive outpatient treatment. Will see how the visits with her family go today. 08/24/2023: We will continue with our current level of observation and precautions. Continue with the Cymbalta 60 mg. Continue to use behavioral activation. She is not isolating which is good and she is trying to use distracting coping skills. Tomorrow, we may consider trying a different antidepressant. Risk Factors Assessment Do You Have Access To A Gun?: No Interval History Identifying Information Jocelyn, who prefers to be called "Melvi," is a 33-year-old female from [place] who presented to our emergency room after an overdose of Tylenol PM and a suicide attempt. She was admitted to our psychiatric unit from the medical floor on August 20. Chief Complaint "I tried to kill myself." Review of Systems Sleep Information Total Hours of Sleep: 7.30 Sleep Comments: Pt required PRN Vistaril Meal Information Percent Meal Consumed - Breakfast: 100 Percent Meal Consumed - Lunch: 100 Percent Meal Consumed - Dinner: 100 Subjective Subjective Today I met with the patient, received nursing report, and reviewed her chart. Melvi is in our hospital due to concerns of severe depression and a recent overdose of Tylenol PM and a suicide attempt. Staff report that she has been interactive and out watching movies with her peers. She attends groups reliably. She slept about 7-1/2 hours. She had a visit with her father and and it sounds like those visits went okay. To the staff, she described her mood as 5 out of 10 where 10 is the best it could ever be. She used the word "apathetic." When I met with the patient today, she said she did not sleep as well even though she took the hydroxyzine. She was very disappointed about that. She said the visit with her father and went okay but she was not too thrilled about them. She is having some appetite but not very good. She is frustrated with herself because she feels like she should be doing better. She is getting along well with her peers. She is tolerating the Cymbalta better now. Physical Exam Psychiatric Patient was alert and cooperative. She was clean and well-groomed. Speech was normal. Eye contact was better. Mood was described as "apathetic." Affect seemed more restricted and almost on the verge of tears today. Thought process was logical and somewhat goal-directed. I think there is an element of hopelessness here. There was no evidence of any hallucinations or delusions. She described some suicidal thoughts but denied homicidal thoughts. Memory and concentration seem good. No abnormal movements were seen. Gait was normal. Insight and judgment are still poor. Vital Signs (Past 24 Hours) Last Vital Signs Temp 36.8 C 08/24/23 06:52 Pulse 80 08/24/23 06:52 Resp 16 08/24/23 06:52 BP 106/68 08/24/23 06:52 Pulse Ox 100 08/24/23 06:52 O2 Del Method Room Air 08/24/23 06:52 Results & Data ([facility]) Current Inpatient Medications Current Inpatient Medications: Current Inpatient Medications Al Hydrox/Mg Hydrox/Simethicone (Aluminum/Magnesium Susp 30 Ml Udc) 30 ml PO Q4H PRN PRN Reason: GI Upset Stop: 09/20/23 10:09 Bismuth Subsalicylate (Bismuth Subsalicylate Liqd 236 Ml) 15 ml PO PRN PRN PRN Reason: Loose Stool Stop: 09/20/23 10:09 Duloxetine HCl (Duloxetine Hcl 60 Mg Cap) 60 mg PO QAM FARIBA Stop: 09/21/23 08:59 Last Admin: 08/24/23 09:06 Dose: 60 mg Hydroxyzine HCl (Hydroxyzine Hcl 25 Mg Tab) 50 mg PO HSZ PRN PRN Reason: Insomnia Stop: 09/20/23 10:09 Last Admin: 08/23/23 21:55 Dose: 50 mg Hydroxyzine HCl (Hydroxyzine Hcl 25 Mg Tab) 25 mg PO Q4H PRN PRN Reason: Anxiety Stop: 09/20/23 10:09 Magnesium Hydroxide (Magnesium Hydroxide Susp 30 Ml Udc) 30 ml PO DAILY PRN PRN Reason: Constipation Stop: 09/20/23 10:09 Sodium Chloride (Sodium Chloride 0.65% Na Soln 45 Ml ([place])) 1 - 2 sprays NA PRN PRN PRN Reason: Nasal Dryness/Congestion Stop: 09/20/23 10:09 Mental Health & Subst Abuse Tx Therapist Name of Therapist: Mike Romero [facility] Post Discharge Appointments Primary Care Physician Name Of Family Doctor/PCP: Dr. Ascencion Berry
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
--- NOTE | 2023-08-26 14:12 | Psychiatric Progress Note ---
Date of Service August 26, 2023 Impression / Recommendations Impression This is a 33-year-old mother of a 2-year-old who came in after an overdose of Tylenol PM and a suicide attempt. This is her second hospitalization within a month. There is a strong family history of depression. Paternal uncle ended his life by suicide. She is under quite a bit of stress with work, raising a child, and financial issues. There also may be a history of trauma. She does not feel that there are any people she can really open up to. Given the situation I think she is in acute danger of and psychiatric hospitalization is warranted once she is medically stabilized. 08/22/2023: Right now, I do not think I can trust her to be safe. Given her history of minimizing and then being secretive about guns and scalpels and pills at home, I think we have to keep her here for safety and further treatment. I think she is minimizing today. I still believe she is in acute danger to herself. 08/23/2023: Patient is starting to show some glimpses of improvement, but I do not know if I can trust it. She has a history of minimizing and admitted that she left the hospital too early last time. I am glad to see her participating in trying hard. I still feel she is in acute danger to herself and requires inpatient hospitalization. 08/24/2023: I am still very concerned. She is getting down on herself because she is not getting better on her timetable. She also seems like she is distancing herself from her family. I think she is at higher risk of suicide at this time. I will talk to her tomorrow about possibly making a medication change if she is not seeing much improvement. In the meantime, I encouraged her to keep going to groups and activities and behavioral activation. 08/25/2023: Today is the first day that I am seeing some distinct improvement. We had a good talk about her concerns about using technology. We also spent more time talking about how important it is to try to make oneself vulnerable at times to others. No wonder, however, why that is difficult for her after which she described. While I am still very concerned about her safety, it feels like we are starting to turn a corner at this point. 08/26/2023: We are seeing improvement, but I am not sure I can trust her. I am still very concerned that she is somehow coming up with a way to get out of the hospital more quickly so she can end her life. Today I spent 37 minutes on the case. This included meeting with the patient, reviewing the chart, nursing report, multidisciplinary team meeting, and documentation. (1) Major depressive disorder, recurrent severe without psychotic features: (2) Suicide attempt by acetaminophen overdose: Plan 08/22/2023: We are going to continue with her current level of observation and precautions. This includes suicide precautions and every 15 minute observation. Will continue with the Cymbalta and hopefully that we will start working in the next week or 2. I encouraged her to keep going to groups and activities to help distract herself and maybe learn some better strategies for dealing with her depression. Staff will be vigilant. I will also discuss with the social workers the need to get her into intensive outpatient treatment, preferably [id number] rather than online. 08/23/2023: We are going to continue with our current level of observation and precautions. We will continue with Cymbalta. I encouraged her to keep working hard and going to groups and activities. We talked about intensive outpatient treatment. Will see how the visits with her family go today. 08/24/2023: We will continue with our current level of observation and precautions. Continue with the Cymbalta 60 mg. Continue to use behavioral activation. She is not isolating which is good and she is trying to use distr acting coping skills. Tomorrow, we may consider trying a different antidepressant. 08/25/2023: We will continue with our current level of observation and precautions. Continue with the Cymbalta. We are setting up a family meeting. Encouraged her to keep going to groups and activities. She is doing a good job staying distracted. caseworker protective services told me that they found an IOP program in [place] that she can attend [id number] rather than online. 08/26/2023: Patient believes that she is getting better. She wonders if maybe the Cymbalta is starting to kick in now that she has been in a close to 4 weeks. She is doing all the right things and I am seeing a brighter affect, but I am not sure I trust her. We will continue to monitor the situation carefully. We will set up a family meeting and see how that goes. Hopefully, we can transition her into an intensive outpatient program soon. However, it is going to take a higher burden of proof this time because of what happened last time she left. Suicide Risk Level Suicide Risk Level: Moderate (q15 min suicide checks) Risk Factors Assessment Do You Have Access To A Gun?: No Interval History Identifying Information Jocelyn, who prefers to be called "Melvi," is a 33-year-old female from [place] who presented to our emergency room after an overdose of Tylenol PM and a suicide attempt. She was admitted to our psychiatric unit from the medical floor on August 20. Chief Complaint "I tried to kill myself." Review of Systems Sleep Information Total Hours of Sleep: 7 Sleep Comments: Pt required PRN Vistaril Meal Information Percent Meal Consumed - Breakfast: 100 Percent Meal Consumed - Lunch: 100 Percent Meal Consumed - Dinner: 100 Subjective Subjective Today I met with the patient, received nursing report, and reviewed her chart. We also had a multidisciplinary team meeting to discuss her care. Melvi is in our hospital after a suicide attempt by overdose of Tylenol PM and self-harm of her left wrist. Staff report that she had 7 hours of sleep. She has been inquiring about possibly getting her stitches removed. Her affect has been brighter. She described her mood at 7 out of 10. Some of the staff are not sure she is being honest with us about her lack of suicidal thoughts. We are going to be setting up a family meeting soon. The social group worker was able to find an intensive outpatient program in [place], [place] which is [id number] that the patient can attend. When I met with her this morning, she was finishing up a book. She is looking forward to a visit from her this evening. She described her mood yesterday as "okay and content." Today, she says her suicidal thoughts are at 1-2 out of 10 and self-harm urges at 3-4 out of 10; these are both where 10 is the worst they could ever be. She denies any medical issues. She says that she is starting to feel better with her mood. She thinks that maybe the [employer] is starting to work. Physical Exam Psychiatric Patient was alert and cooperative. She was clean and well-groomed. Speech was normal. Eye contact was better. Mood was described as "okay and content." Affect was brighter today. Thought process was logical and goal-directed. The re was no evidence of any hallucinations or delusions. Suicidal and self-harm urges are improved as I described above. She denied homicidal thoughts. Memory and concentration seem good. No abnormal movements were seen. Gait was normal. Insight and judgment are still poor. Vital Signs (Past 24 Hours) Last Vital Signs Temp 37 C 08/26/23 06:44 Pulse 87 08/26/23 06:44 Resp 16 08/26/23 06:44 BP 132/88 08/26/23 06:44 Pulse Ox 100 08/24/23 06:52 O2 Del Method Room Air 08/24/23 06:52 Results & Data ([facility]) Current Inpatient Medications Current Inpatient Medications: Current Inpatient Medications Al Hydrox/Mg Hydrox/Simethicone (Aluminum/Magnesium Susp 30 Ml Udc) 30 ml PO Q4H PRN PRN Reason: GI Upset Stop: 09/20/23 10:09 Bismuth Subsalicylate (Bismuth Subsalicylate Liqd 236 Ml) 15 ml PO PRN PRN PRN Reason: Loose Stool Stop: 09/20/23 10:09 Duloxetine HCl (Duloxetine Hcl 60 Mg Cap) 60 mg PO QAM FARIBA Stop: 09/21/23 08:59 Last Admin: 08/26/23 08:26 Dose: 60 mg Hydroxyzine HCl (Hydroxyzine Hcl 25 Mg Tab) 50 mg PO HSZ PRN PRN Reason: Insomnia Stop: 09/20/23 10:09 Last Admin: 08/25/23 21:08 Dose: 50 mg Hydroxyzine HCl (Hydroxyzine Hcl 25 Mg Tab) 25 mg PO Q4H PRN PRN Reason: Anxiety Stop: 09/20/23 10:09 Magnesium Hydroxide (Magnesium Hydroxide Susp 30 Ml Udc) 30 ml PO DAILY PRN PRN Reason: Constipation Stop: 09/20/23 10:09 Sodium Chloride (Sodium Chloride 0.65% Na Soln 45 Ml ([place])) 1 - 2 sprays NA PRN PRN PRN Reason: Nasal Dryness/Congestion Stop: 09/20/23 10:09 Mental Health & Subst Abuse Tx Psychiatrist Name of Psychiatrist: [facility]- Dr. Mendoza Psychiatrist's Date Of Appointment With Psychiatric Provider: 09/17/2023 Time of Appointment with Psychiatrist: 11am Psychiatric Appointment Comment: telehealth Therapist Name of Therapist: Mike Romero [facility] Appointments Primary Care Physician Name Of Family Doctor/PCP: Dr. Ascencion Berry
--- NOTE | 2023-08-27 15:58 | Psychiatric Progress Note ---
Date of Service August 27, 2023 Impression / Recommendations Impression This is a 33-year-old mother of a 2-year-old who came in after an overdose of Tylenol PM and self-inflicted lacerations as part of a serious suicide attempt. Diagnostically consistent with major depressive disorder, recurrent. She requires psychiatric hospitalization for diagnostic clarification, safety and stabilization, medication management and development of further coping skills. 08/27/2023: Presents as significantly depressed with severe hopelessness today. She denies medication side effects and wants to continue with Cymbalta but understandably she is very upset by call from her outpatient therapist which adds an additional and new stressor. Today I spent 45 minutes on the case. This included meeting with the patient, reviewing the chart, nursing report, multidisciplinary team meeting, and docu mentation. (1) Major depressive disorder, recurrent severe without psychotic features: (2) Suicide attempt by acetaminophen overdose: Plan 08/27/2023: Continue current medication and tx plan. Suicide Risk Level Suicide Risk Level: Moderate (q15 min suicide checks) (severe depression and suicide attempt prior to admission with ongoing depression and SI though she reports no plan for inpt setting and agrees to let nurses know if she feels unsafe or requires additional support) Risk Factors Assessment Do You Have Access To A Gun?: No Interval History Identifying Information Jocelyn, who prefers to be called "Melvi," is a 33-year-old female from [place] who presented to our emergency room after an overdose of Tylenol PM and a suicide attempt. She was admitted to our psychiatric unit from the medical floor on August 20. Chief Complaint "My morning was ok but the afternoon has been really rough". Review of Systems Sleep Information Total Hours of Sleep: 7 Sleep Comments: Pt required PRN Vistaril Meal Information Percent Meal Consumed - Breakfast: 100 Percent Meal Consumed - Lunch: 50 Percent Meal Consumed - Dinner: 100 Subjective Subjective Patient was seen & assessed and interval progress reviewed with treatment team nursing and social work. melvi reports significant worsening of hopelessness after her outpatient therapist contacted the unit to report he could no longer see her in the outpatient setting. She feels very defeated by this as she viewed him as the best therapist she's ever had and the only one she had shared certain parts of her history with. Physical Exam Psychiatric Orientation: alert and oriented x 3 Apperance: appropriately dressed and + disheveled Eye Contact: + poor eye contact Motor Behavior: no abnormal motor movements Speech: + abnormal rate/rhythm/volume of speech (soft, slightly latent) Affect: + depressed affect and + flat affect Mood: + depressed mood Thought Process: + concrete thought process Thought Content: + preoccupation, reality based without delusions and + hopelessness Suicidal Thoughts: denies suicidal plan ("I can't do anything here"); + reports suicidal thoughts Homicidal Thoughts: denies homicidal thoughts Hallucinations: no auditory hallucinations and no visual hallucinations Insight: + limited insight Judgment: + limited judgement Vital Signs (Past 24 Hours) Last Vital Signs Temp 36.4 C L 08/27/23 06:18 Pulse 75 08/27/23 06:19 Resp 18 08/27/23 06:18 BP 122/82 08/27/23 06:19 Pulse Ox 100 08/27/23 06:18 O2 Del Method Room Air 08/27/23 06:18 Results & Data ([facility]) Current Inpatient Medications Current Inpatient Medications: Current Inpatient Medications Al Hydrox/Mg Hydrox/Simethicone (Aluminum/Magnesium Susp 30 Ml Udc) 30 ml PO Q4H PRN PRN Reason: GI Upset Stop: 09/20/23 10:09 Bismuth Subsalicylate (Bismuth Subsalicylate Liqd 236 Ml) 15 ml PO PRN PRN PRN Reason: Loose Stool Stop: 09/20/23 10:09 Duloxetine HCl (Duloxetine Hcl 60 Mg Cap) 60 mg PO QAM FARIBA Stop: 09/21/23 08:59 Last Admin: 08/27/23 08:05 Dose: 60 mg Hydroxyzine HCl (Hydroxyzine Hcl 25 Mg Tab) 50 mg PO HSZ PRN PRN Reason: Insomnia Stop: 09/20/23 10:09 Last Admin: 08/26/23 21:32 Dose: 50 mg Hydroxyzine HCl (Hydroxyzine Hcl 25 Mg Tab) 25 mg PO Q4H PRN PRN Reason: Anxiety Stop: 09/20/23 10:09 Magnesium Hydroxide (Magnesium Hydroxide Susp 30 Ml Udc) 30 ml PO DAILY PRN PRN Reason: Constipation Stop: 09/20/23 10:09 Sodium Chloride (Sodium Chloride 0.65% Na Soln 45 Ml ([place])) 1 - 2 sprays NA PRN PRN PRN Reason: Nasal Dryness/Congestion Stop: 09/20/23 10:09 Mental Health & Subst Abuse Tx Psychiatrist Name of Psychiatrist: [facility]- Dr. Mendoza Psychiatrist's Date Of Appointment With Psychiatric Provider: 09/17/2023 Time of Appointment with Psychiatrist: 11am Psychiatric Appointment Comment: telehealth Therapist Name of Therapist: Mike Romero [facility] Appointments Primary Care Physician Name Of Family Doctor/PCP: Dr. Ascencion Berry
--- NOTE | 2023-08-28 09:45 | Psychiatric Progress Note ---
Date of Service August 28, 2023 Impression / Recommendations Impression This is a 33-year-old mother of a 2-year-old who came in after an overdose of Tylenol PM and self-inflicted lacerations as part of a serious suicide attempt. Diagnostically consistent with major depressive disorder, recurrent. She requires psychiatric hospitalization for diagnostic clarification, safety and stabilization, medication management and development of further coping skills. 08/28/2023: Ongoing depression and SI but reports slight improvement in mood today as she continues to cope with sadness at news of her outpatient therapist no longer being able to see her. Continues to struggle with insomnia, reviewed option to start mirtazapine which she consents to for insomnia, depression and anxiety. Will continue to monitor BP and HR given potential impact from Cymbalta. Discussed developmentally appropriate ways to talk about mental health with son over time. Today I spent 50 minutes on the case. This included meeting with the patient, reviewing the chart, nursing report, multidisciplinary team meeting, and documentation. (1) Major depressive disorder, recurrent severe without psychotic features: (2) Suicide attempt by acetaminophen overdose: Plan 08/28/2023: * Start mirtazapine 7.5mg HS * Continue Cymbalta 60mg daily 08/27/2023: Continue current medication and tx plan. Suicide Risk Level Suicide Risk Level: Moderate (q15 min suicide checks) (severe depression and suicide attempt prior to admission with ongoing depression and SI though she reports no plan for inpt setting and agrees to let nurses know if she feels unsafe or requires additional support) Risk Factors Assessment Do You Have Access To A Gun?: No Interval History Identifying Information Jocelyn, who prefers to be called "Melvi," is a 33-year-old female from [place] who presented to our emergency room after an overdose of Tylenol PM and a suicide attempt. She was admitted to our psychiatric unit from the medical floor on August 20. Chief Complaint "I'm trying to fake it till I make it". Review of Systems Sleep Information Total Hours of Sleep: 8.30 Sleep Comments: PRN Vistaril Meal Information Percent Meal Consumed - Breakfast: 100 Percent Meal Consumed - Lunch: 50 Percent Meal Consumed - Dinner: 50 Subjective Subjective Patient was seen & assessed and interval progress reviewed with treatment team nursing and social work. Attended one of the groups last night and reported her mood as discouraged. Took a prn Vistaril last night. She is willing to do IOP. Today she reports improved ability to hold herself together compared to yesterday but continues to experience anxiety and difficulty sleeping. Anxiety is specific to recent events and not a general anxiety. Vistaril was not effective last night. She had tried melatonin previously for insomnia but it caused distressing dreams. Blood pressure and heart rate were slightly elevated this morning, she denies a history of this but reports she was very anxious this morning. She notes she is reports missing her son more in recent days. Expresses suicidal ideation as "middle of the road". Physical Exam Psychiatric Orientation: alert and oriented x 3 Apperance: appropriately dressed and appropriately groomed Eye Contact: good eye contact Motor Behavior: no abnormal motor movements Speech: normal rate/rhythm/volume of speech (soft) Affect: + depressed affect and + flat affect Mood: + depressed mood and + anxious mood Thought Process: + concrete thought process Thought Content: + preoccupation and reality based without delusions Suicidal Thoughts: denies suicidal plan; + reports suicidal thoughts Homicidal Thoughts: denies homicidal thoughts Hallucinations: no auditory hallucinations and no visual hallucinations Insight: + limited insight Judgment: + limited judgement Vital Signs (Past 24 Hours) Last Vital Signs Temp 36.2 C L 08/28/23 06:00 Pulse 108 H 08/28/23 06:35 Resp 16 08/28/23 06:00 BP 160/95 H 08/28/23 06:35 Pulse Ox 100 08/27/23 06:18 O2 Del Method Room Air 08/27/23 06:18 Results & Data ([facility]) Current Inpatient Medications Current Inpatient Medications: Current Inpatient Medications Al Hydrox/Mg Hydrox/Simethicone (Aluminum/Magnesium Susp 30 Ml Udc) 30 ml PO Q4H PRN PRN Reason: GI Upset Stop: 09/20/23 10:09 Bismuth Subsalicylate (Bismuth Subsalicylate Liqd 236 Ml) 15 ml PO PRN PRN PRN Reason: Loose Stool Stop: 09/20/23 10:09 Duloxetine HCl (Duloxetine Hcl 60 Mg Cap) 60 mg PO QAM FARIBA Stop: 09/21/23 08:59 Last Admin: 08/28/23 08:32 Dose: 60 mg Hydroxyzine HCl (Hydroxyzine Hcl 25 Mg Tab) 50 mg PO HSZ PRN PRN Reason: Insomnia Stop: 09/20/23 10:09 Last Admin: 08/27/23 20:56 Dose: 50 mg Hydroxyzine HCl (Hydroxyzine Hcl 25 Mg Tab) 25 mg PO Q4H PRN PRN Reason: Anxiety Stop: 09/20/23 10:09 Magnesium Hydroxide (Magnesium Hydroxide Susp 30 Ml Udc) 30 ml PO DAILY PRN PRN Reason: Constipation Stop: 09/20/23 10:09 Sodium Chloride (Sodium Chloride 0.65% Na Soln 45 Ml ([place])) 1 - 2 sprays NA PRN PRN PRN Reason: Nasal Dryness/Congestion Stop: 09/20/23 10:09 Mental Health & Subst Abuse Tx Psychiatrist Name of Psychiatrist: [facility]- Dr. Mendoza Psychiatrist's Date Of Appointment With Psychiatric Provider: 09/17/2023 Time of Appointment with Psychiatrist: 11am Psychiatric Appointment Comment: telehealth Therapist Name of Therapist: Mike Romero [facility] Appointments Primary Care Physician Name Of Family Doctor/PCP: Dr. Ascencion Berry
[2023-08-28] MEDS: hydrOXYzine HCl 25 MG TAB PO PRN (14:31)
[2023-08-28] MEDS: MIRTAZAPINE TAB 15 MG TAB PO SCH (21:20)
--- NOTE | 2023-08-29 09:14 | Psychiatric Progress Note ---
Date of Service August 29, 2023 Impression / Recommendations Impression This is a 33-year-old mother of a 2-year-old who came in after an overdose of Tylenol PM and self-inflicted lacerations as part of a serious suicide attempt. Diagnostically consistent with major depressive disorder, recurrent. She requires psychiatric hospitalization for diagnostic clarification, safety and stabilization, medication management and development of further coping skills. 08/29/2023: Ongoing depression but no SI today and feels her mood is starting to improve a bit. Tolerated initiation of mirtazapine and slept well and did not require HS prn of Vistaril. Wants to continue with Cymbalta and mirtazapine at current doses. Today I spent 45 minutes on the case. This included meeting with the patient, reviewing the chart, nursing report, multidisciplinary team meeting, [facility] paperwork and documentation. (1) Major depressive disorder, recurrent severe without psychotic features: (2) Suicide attempt by acetaminophen overdose: Plan 08/29/2023: Stitches removed. [facility] paperwork completed. Continue current medications and tx plan. 08/28/2023: * Start mirtazapine 7.5mg HS * Continue Cymbalta 60mg daily 08/27/2023: Continue current medication and tx plan. Suicide Risk Level Suicide Risk Level: Moderate (q15 min suicide checks) (severe depression and suicide attempt prior to admission with ongoing depression, lessening SI, feels safe on the unit and agrees to let nurses know if she feels unsafe or requires additional support) Risk Factors Assessment Do You Have Access To A Gun?: No Interval History Identifying Information Jocelyn, who prefers to be called "Melvi," is a 33-year-old female from [place] who presented to our emergency room after an overdose of Tylenol PM and a suicide attempt. She was admitted to our psychiatric unit from the medical floor on August 20. Chief Complaint "Pretty good". Review of Systems Sleep Information Total Hours of Sleep: 6.30 Sleep Comments: Scheduled HS Remeron Meal Information Percent Meal Consumed - Breakfast: 100 Percent Meal Consumed - Lunch: 100 Percent Meal Consumed - Dinner: 100 Subjective Subjective Patient was seen & assessed and interval progress reviewed with treatment team nursing and social work. Had a good visit with . Hessmer tired last night. She reports feeling pretty good and is pleased to have had her stitches removed. We review that the site looks good and has no signs of redness or oozing. Reviewed BP and HR were normal yesterday afternoon and again this morning. She slept well last night and did not experience any significant side effects from the mirtazapine, except for a brief episode of nocturnal nausea but she thinks this could have been from high levels of anxiety. She would like to continue with the current low dose of mirtazapine. She reports that her thoughts of suicide are currently low. She has noticed a general improvement in mood and reduced rumination since starting Cymbalta. She has no additional questions or concerns at this time. Physical Exam Psychiatric Orientation: alert and oriented x 3 Apperance: appropriately dressed and appropriately groomed Eye Contact: good eye contact Motor Behavior: no abnormal motor movements Speech: normal rate/rhythm/volume of speech Affect: + depressed affect and + constricted affect Mood: + depressed mood and + anxious mood Thought Process: + concrete thought process Thought Content: reality based without delusions Suicidal Thoughts: denies suicidal thoughts (but s/p recent serious attempt and intermittent SI recently) Homicidal Thoughts: denies homicidal thoughts Hallucinations: no auditory hallucinations and no visual hallucinations Insight: + limited insight Judgment: + limited judgement Vital Signs (Past 24 Hours) Last Vital Signs Temp 37 C 08/29/23 06:35 Pulse 79 08/29/23 06:36 Resp 16 08/29/23 06:35 BP 131/85 08/29/23 06:36 Pulse Ox 100 08/27/23 06:18 O2 Del Method Room Air 08/27/23 06:18 Results & Data ([facility]) Current Inpatient Medications Current Inpatient Medications: Current Inpatient Medications Al Hydrox/Mg Hydrox/Simethicone (Aluminum/Magnesium Susp 30 Ml Udc) 30 ml PO Q4H PRN PRN Reason: GI Upset Stop: 09/20/23 10:09 Bismuth Subsalicylate (Bismuth Subsalicylate Liqd 236 Ml) 15 ml PO PRN PRN PRN Reason: Loose Stool Stop: 09/20/23 10:09 Duloxetine HCl (Duloxetine Hcl 60 Mg Cap) 60 mg PO QAM FARIBA Stop: 09/21/23 08:59 Last Admin: 08/29/23 08:49 Dose: 60 mg Hydroxyzine HCl (Hydroxyzine Hcl 25 Mg Tab) 50 mg PO HSZ PRN PRN Reason: Insomnia Stop: 09/20/23 10:09 Last Admin: 08/27/23 20:56 Dose: 50 mg Hydroxyzine HCl (Hydroxyzine Hcl 25 Mg Tab) 25 mg PO Q4H PRN PRN Reason: Anxiety Stop: 09/20/23 10:09 Last Admin: 08/28/23 14:31 Dose: 25 mg Magnesium Hydroxide (Magnesium Hydroxide Susp 30 Ml Udc) 30 ml PO DAILY PRN PRN Reason: Constipation Stop: 09/20/23 10:09 Mirtazapine (Mirtazapine Tab 15 Mg Tab) 7.5 mg PO HS FARIBA Stop: 09/27/23 21:59 Last Admin: 08/28/23 21:20 Dose: 7.5 mg Sodium Chloride (Sodium Chloride 0.65% Na Soln 45 Ml ([place])) 1 - 2 sprays NA PRN PRN PRN Reason: Nasal Dryness/Congestion Stop: 09/20/23 10:09 Mental Health & Subst Abuse Tx Psychiatrist Name of Psychiatrist: [facility]- Dr. Mendoza Psychiatrist's Date Of Appointment With Psychiatric Provider: 09/17/2023 Time of Appointment with Psychiatrist: 11am Psychiatric Appointment Comment: telehealth Therapist Name of Therapist: Mike Romero [facility] Appointments Primary Care Physician Name Of Family Doctor/PCP: Dr. Ascencion Berry
--- NOTE | 2023-08-30 09:23 | Psychiatric Progress Note ---
Date of Service August 30, 2023 Impression / Recommendations Impression This is a 33-year-old mother of a 2-year-old who came in after an overdose of Tylenol PM and self-inflicted lacerations as part of a serious suicide attempt. Diagnostically consistent with major depressive disorder, recurrent. She requires psychiatric hospitalization for diagnostic clarification, safety and stabilization, medication management and development of further coping skills. 08/30/2023: Mood starting to show some signs of improvement but still struggling with sleep. She consents to increasing the mirtazapine to further target insomnia and depression. Today I spent 25 minutes on the case. This included meeting with the patient, reviewing the chart, nursing report, multidisciplinary team meeting, [facility] paperwork and documentation. (1) Major depressive disorder, recurrent severe without psychotic features: (2) Suicide attempt by acetaminophen overdose: Plan 08/30/2023: Increase mirtazapine to 15mg HS 08/29/2023: Stitches removed. [place] paperwork completed. Continue current medications and tx plan. 08/28/2023: * Start mirtazapine 7.5mg HS * Continue Cymbalta 60mg daily 08/27/2023: Continue current medication and tx plan. Suicide Risk Level Suicide Risk Level: Moderate (q15 min suicide checks) (severe depression and suicide attempt prior to admission with ongoing depression, lessening SI, feels safe on the unit and agrees to let nurses know if she feels unsafe or requires additional support) Risk Factors Assessment Do You Have Access To A Gun?: No Interval History Identifying Information Jocelyn, who prefers to be called "Melvi," is a 33-year-old female from [place] who presented to our emergency room after an overdose of Tylenol PM and a suicide attempt. She was admitted to our psychiatric unit from the medical floor on August 20. Chief Complaint "[]". Review of Systems Sleep Information Total Hours of Sleep: 6.5 Sleep Comments: Scheduled HS Remeron Meal Information Percent Meal Consumed - Breakfast: 100 Percent Meal Consumed - Lunch: 90 Percent Meal Consumed - Dinner: 100 Subjective Subjective Patient was seen & assessed and interval progress reviewed with treatment team nursing and social work. Attended groups yesterday. Last night reported feeling guilty. She reports sleep disturbances due to bad dreams, despite falling asleep easily and experiencing deep sleep initially. She doesn't think it was a medication side effect as dreams were not "vivid" but regardless it was distressing and impacted her sleep quality. She wishes to continue with mirtazapine and is open to an increase as she feels that improving her sleep is crucial for her recovery. She is keen on establishing a post-discharge plan, specifically regarding her intake with the Intensive Outpatient Program (IOP) with [facility] to ensure a support system is in place following discharge. Physical Exam Psychiatric Orientation: alert and oriented x 3 Apperance: appropriately dressed and appropriately groomed Eye Contact: good eye contact Motor Behavior: no abnormal motor movements Speech: normal rate/rhythm/volume of speech Affect: + constricted affect Mood: + depressed mood and + anxious mood Thought Process: goal directed thought process Thought Content: reality based without delusions Suicidal Thoughts: denies suicidal thoughts (but s/p recent serious attempt and intermittent SI recently) Homicidal Thoughts: denies homicidal thoughts Hallucinations: no auditory hallucinations and no visual hallucinations Insight: + fair insight Judgment: + fair judgement Vital Signs (Past 24 Hours) Last Vital Signs Temp 36.9 C 08/30/23 06:38 Pulse 77 08/30/23 06:38 Resp 16 08/30/23 06:38 BP 131/85 08/30/23 06:38 Pulse Ox 100 08/27/23 06:18 O2 Del Method Room Air 08/27/23 06:18 Results & Data ([facility]) Current Inpatient Medications Current Inpatient Medications: Current Inpatient Medications Al Hydrox/Mg Hydrox/Simethicone (Aluminum/Magnesium Susp 30 Ml Udc) 30 ml PO Q4H PRN PRN Reason: GI Upset Stop: 09/20/23 10:09 Bismuth Subsalicylate (Bismuth Subsalicylate Liqd 236 Ml) 15 ml PO PRN PRN PRN Reason: Loose Stool Stop: 09/20/23 10:09 Duloxetine HCl (Duloxetine Hcl 60 Mg Cap) 60 mg PO QAM FARIBA Stop: 09/21/23 08:59 Last Admin: 08/30/23 07:54 Dose: 60 mg Hydroxyzine HCl (Hydroxyzine Hcl 25 Mg Tab) 50 mg PO HSZ PRN PRN Reason: Insomnia Stop: 09/20/23 10:09 Last Admin: 08/27/23 20:56 Dose: 50 mg Hydroxyzine HCl (Hydroxyzine Hcl 25 Mg Tab) 25 mg PO Q4H PRN PRN Reason: Anxiety Stop: 09/20/23 10:09 Last Admin: 08/28/23 14:31 Dose: 25 mg Magnesium Hydroxide (Magnesium Hydroxide Susp 30 Ml Udc) 30 ml PO DAILY PRN PRN Reason: Constipation Stop: 09/20/23 10:09 Mirtazapine (Mirtazapine Tab 15 Mg Tab) 7.5 mg PO HS FARIBA Stop: 09/27/23 21:59 Last Admin: 08/29/23 21:22 Dose: 7.5 mg Sodium Chloride (Sodium Chloride 0.65% Na Soln 45 Ml ([place])) 1 - 2 sprays NA PRN PRN PRN Reason: Nasal Dryness/Congestion Stop: 09/20/23 10:09 Mental Health & Subst Abuse Tx Psychiatrist Name of Psychiatrist: [facility]- Dr. Mendoza Psychiatrist's Date Of Appointment With Psychiatric Provider: 09/17/2023 Time of Appointment with Psychiatrist: 11am Psychiatric Appointment Comment: telehealth Therapist Name of Therapist: Mike Romero [facility] Appointments Primary Care Physician Name Of Family Doctor/PCP: Dr. Ascencion Berry
[2023-08-30] MEDS: IBUPROFEN 600 MG TAB PO PRN (15:11)
[2023-08-30] MEDS: MIRTAZAPINE TAB 15 MG TAB PO SCH (21:12)
--- NOTE | 2023-08-31 12:00 | Psychiatric Progress Note ---
Date of Service August 31, 2023 Impression / Recommendations Impression This is a 33-year-old mother of a 4-year-old who came in after an overdose of Tylenol PM and self-inflicted lacerations as part of a serious suicide attempt. Diagnostically consistent with major depressive disorder, recurrent. She requires psychiatric hospitalization for diagnostic clarification, safety and stabilization, medication management and development of further coping skills. 08/31/2023: interval improvement in sleep Today I spent 38 minutes on the case. This included meeting with the patient, reviewing the chart, nursing report, and documentation. (1) Major depressive disorder, recurrent severe without psychotic features: (2) Suicide attempt by acetaminophen overdose: Plan 08/31/2023: continue current meds and tx plan. 08/30/2023: Increase mirtazapine to 15mg HS 08/29/2023: Stitches removed. [employer] paperwork completed. Continue current medications and tx plan. 08/28/2023: * Start mirtazapine 7.5mg HS * Continue Cymbalta 60mg daily 08/27/2023: Continue current medication and tx plan. reviewed care as per Dr. Seymour below: 08/22/2023: Right now, I do not think I can trust her to be safe. Given her history of minimizing and then being secretive about guns and scalpels and pills at home, I think we have to keep her here for safety and further treatment. I think she is minimizing today. I still believe she is in acute danger to herself. 08/23/2023: Patient is starting to show some glimpses of improvement, but I do not know if I can trust it. She has a history of minimizing and admitted that she left the hospital too early last time. I am glad to see her participating in trying hard. I still feel she is in acute danger to herself and requires inpatient hospitalization. 08/24/2023: I am still very concerned. She is getting down on herself because she is not getting better on her timetable. She also seems like she is distancing herself from her family. I think she is at higher risk of suicide at this time. I will talk to her tomorrow about possibly making a medication change if she is not seeing much improvement. In the meantime, I encouraged her to keep going to groups and activities and behavioral activation. 08/25/2023: Today is the first day that I am seeing some distinct improvement. We had a good talk about her concerns about using technology. We also spent more time talking about how important it is to try to make oneself vulnerable at times to others. No wonder, however, why that is difficult for her after which she described. While I am still very concerned about her safety, it feels like we are starting to turn a corner at this point. 08/26/2023: We are seeing improvement, but I am not sure I can trust her. I am still very concerned that she is somehow coming up with a way to get out of the hospital more quickly so she can end her life. Suicide Risk Level Suicide Risk Level: Moderate (q15 min suicide checks) Risk Factors Assessment Do You Have Access To A Gun?: No Interval History Identifying Information Jocelyn, who prefers to be called "Melvi," is a 33-year-old female from [place] who presented to our emergency room after an overdose of Tylenol PM and a suicide attempt. She was admitted to our psychiatric unit from the medical floor on August 20. Chief Complaint "yeah last time I probably didn't stay long enough." Review of Systems Sleep Information Total Hours of Sleep: 6.5 Sleep Comments: Scheduled HS Remeron Meal Information Percent Meal Consumed - Breakfast: 100 Percent Meal Consumed - Lunch: 100 Percent Meal Consumed - Dinner: 100 Subjective Subjective Patient was seen & assessed and interval progress reviewed with nursing and counselor. Patient reports sleep is improving. Wound healing. Willing for IOP. Expressed feelings of abandonment by therapist. Patient is future focussed however with regards to visiting sister in [facility] this summer. Physical Exam Psychiatric Orientation: alert and oriented x 3 Apperance: appropriately dressed and appropriately groomed Eye Contact: good eye contact Motor Behavior: no abnormal motor movements Speech: normal rate/rhythm/volume of speech Affect: + depressed affect and + constricted affect Mood: + depressed mood Thought Process: goal directed thought process Thought Content: reality based without delusions Suicidal Thoughts: denies suicidal thoughts (but s/p recent serious attempt and intermittent SI recently) and denies suicidal plan Homicidal Thoughts: denies homicidal thoughts Hallucinations: no auditory hallucinations and no visual hallucinations Vital Signs (Past 24 Hours) Last Vital Signs Temp 36.7 C 08/31/23 06:34 Pulse 70 08/31/23 06:34 Resp 16 08/31/23 06:34 BP 134/83 08/31/23 06:34 Pulse Ox 100 08/27/23 06:18 O2 Del Method Room Air 08/27/23 06:18 Results & Data ([facility]) Current Inpatient Medications Current Inpatient Medications: Current Inpatient Medications Al Hydrox/Mg Hydrox/Simethicone (Aluminum/Magnesium Susp 30 Ml Udc) 30 ml PO Q4H PRN PRN Reason: GI Upset Stop: 09/20/23 10:09 Bismuth Subsalicylate (Bismuth Subsalicylate Liqd 236 Ml) 15 ml PO PRN PRN PRN Reason: Loose Stool Stop: 09/20/23 10:09 Duloxetine HCl (Duloxetine Hcl 60 Mg Cap) 60 mg PO QAM FARIBA Stop: 09/21/23 08:59 Last Admin: 08/31/23 09:35 Dose: 60 mg Hydroxyzine HCl (Hydroxyzine Hcl 25 Mg Tab) 50 mg PO HSZ PRN PRN Reason: Insomnia Stop: 09/20/23 10:09 Last Admin: 08/27/23 20:56 Dose: 50 mg Hydroxyzine HCl (Hydroxyzine Hcl 25 Mg Tab) 25 mg PO Q4H PRN PRN Reason: Anxiety Stop: 09/20/23 10:09 Last Admin: 08/28/23 14:31 Dose: 25 mg Ibuprofen (Ibuprofen 600 Mg Tab) 600 mg PO Q8H PRN PRN Reason: pain Stop: 09/29/23 14:59 Last Admin: 08/30/23 15:11 Dose: 600 mg Magnesium Hydroxide (Magnesium Hydroxide Susp 30 Ml Udc) 30 ml PO DAILY PRN PRN Reason: Constipation Stop: 09/20/23 10:09 Mirtazapine (Mirtazapine Tab 15 Mg Tab) 15 mg PO HS FARIBA Stop: 09/29/23 21:59 Last Admin: 08/30/23 21:12 Dose: 15 mg Sodium Chloride (Sodium Chloride 0.65% Na Soln 45 Ml ([place])) 1 - 2 sprays NA PRN PRN PRN Reason: Nasal Dryness/Congestion Stop: 09/20/23 10:09 Mental Health & Subst Abuse Tx Psychiatrist Name of Psychiatrist: [facility]- Dr. Mendoza Psychiatrist's Date Of Appointment With Psychiatric Provider: 09/17/2023 Time of Appointment with Psychiatrist: 11am Psychiatric Appointment Comment: telehealth Therapist Name of Therapist: Mike Romero [facility] Appointments Primary Care Physician Name Of Family Doctor/PCP: Dr. Ascencion Berry
--- NOTE | 2023-09-01 14:06 | Psychiatric Progress Note ---
Date of Service September 01, 2023 Impression / Recommendations Impression This is a 33-year-old mother of a 2-year-old who came in after an overdose of Tylenol PM and self-inflicted lacerations as part of a serious suicide attempt. Diagnostically consistent with major depressive disorder, recurrent. She requires psychiatric hospitalization for diagnostic clarification, safety and stabilization, medication management and development of further coping skills. 09/01/2023: improving (1) Major depressive disorder, recurrent severe without psychotic features: (2) Suicide attempt by acetaminophen overdose: Plan 09/01/2023: finalize safety plan and aftercare, patient agreeable to remain hospitalized pending 08/31/2023: continue current meds and tx plan. 08/30/2023: Increase mirtazapine to 15mg HS 08/29/2023: Stitches removed. FMLA paperwork completed. Continue current medications and tx plan. 08/28/2023: * Start mirtazapine 7.5mg HS * Continue Cymbalta 60mg daily 08/27/2023: Continue current medication and tx plan. reviewed care as per Dr. Seymour below: 08/22/2023: Right now, I do not think I can trust her to be safe. Given her history of minimizing and then being secretive about guns and scalpels and pills at home, I think we have to keep her here for safety and further treatment. I think she is minimizing today. I still believe she is in acute danger to herself. 08/23/2023: Patient is starting to show some glimpses of improvement, but I do not know if I can trust it. She has a history of minimizing and admitted that she left the hospital too early last time. I am glad to see her participating in trying hard. I still feel she is in acute danger to herself and requires inpatient hospitalization. 08/24/2023: I am still very concerned. She is getting down on herself because she is not getting better on her timetable. She also seems like she is distancing herself from her family. I think she is at higher risk of suicide at this time. I will talk to her tomorrow about possibly making a medication change if she is not seeing much improvement. In the meantime, I encouraged her to keep going to groups and activities and behavioral activation. 08/25/2023: Today is the first day that I am seeing some distinct improvement. We had a good talk about her concerns about using technology. We also spent more time talking about how important it is to try to make oneself vulnerable at time s to others. No wonder, however, why that is difficult for her after which she described. While I am still very concerned about her safety, it feels like we are starting to turn a corner at this point. 08/26/2023: We are seeing improvement, but I am not sure I can trust her. I am still very concerned that she is somehow coming up with a way to get out of the hospital more quickly so she can end her life. Suicide Risk Level Suicide Risk Level: Moderate (q15 min suicide checks) Risk Factors Assessment Do You Have Access To A Gun?: No Interval History Identifying Information Jocelyn, who prefers to be called "Melvi," is a 33-year-old female from [place] who presented to our emergency room after an overdose of Tylenol PM and a suicide attempt. She was admitted to our psychiatric unit from the medical floor on August 20. Chief Complaint requesting discharge soon but did not sign 72 hr notice Review of Systems Sleep Information Total Hours of Sleep: 8 Sleep Comments: Scheduled HS Remeron Meal Information Percent Meal Consumed - Breakfast: 100 Percent Meal Consumed - Lunch: 100 Percent Meal Consumed - Dinner: 100 Subjective Subjective Patient was seen & assessed and interval progress reviewed with treatment team. Patient has been participating and appears genuinely brighter/calmer. She is awaiting intake with [facility]. Does not plan to return to work immediately. She is tolerating medications. Physical Exam Psychiatric Orientation: alert and oriented x 3 Apperance: appropriately dressed and appropriately groomed Eye Contact: good eye contact Motor Behavior: no abnormal motor movements Speech: normal rate/rhythm/volume of speech Affect: + depressed affect Mood: + depressed mood Thought Process: goal directed thought process Thought Content: reality based without delusions Suicidal Thoughts: denies suicidal thoughts Homicidal Thoughts: denies homicidal thoughts Hallucinations: no auditory hallucinations and no visual hallucinations Cognition: attention grossly intact and language grossly intact Estimated Intelligence: consistent with education level Vital Signs (Past 24 Hours) Last Vital Signs Temp 36.7 C 09/01/23 06:40 Pulse 78 09/01/23 06:41 Resp 16 09/01/23 06:40 BP 115/83 09/01/23 06:41 Pulse Ox 100 08/27/23 06:18 O2 Del Method Room Air 08/27/23 06:18 Results & Data ([facility]) Current Inpatient Medications Current Inpatient Medications: Current Inpatient Medications Al Hydrox/Mg Hydrox/Simethicone (Aluminum/Magnesium Susp 30 Ml Udc) 30 ml PO Q4H PRN PRN Reason: GI Upset Stop: 09/20/23 10:09 Bismuth Subsalicylate (Bismuth Subsalicylate Liqd 236 Ml) 15 ml PO PRN PRN PRN Reason: Loose Stool Stop: 09/20/23 10:09 Duloxetine HCl (Duloxetine Hcl 60 Mg Cap) 60 mg PO QAM FARIBA Stop: 09/21/23 08:59 Last Admin: 09/01/23 07:32 Dose: 60 mg Hydroxyzine HCl (Hydroxyzine Hcl 25 Mg Tab) 50 mg PO HSZ PRN PRN Reason: Insomnia Stop: 09/20/23 10:09 Last Admin: 08/27/23 20:56 Dose: 50 mg Hydroxyzine HCl (Hydroxyzine Hcl 25 Mg Tab) 25 mg PO Q4H PRN PRN Reason: Anxiety Stop: 09/20/23 10:09 Last Admin: 08/28/23 14:31 Dose: 25 mg Ibuprofen (Ibuprofen 600 Mg Tab) 600 mg PO Q8H PRN PRN Reason: pain Stop: 09/29/23 14:59 Last Admin: 08/30/23 15:11 Dose: 600 mg Magnesium Hydroxide (Magnesium Hydroxide Susp 30 Ml Udc) 30 ml PO DAILY PRN PRN Reason: Constipation Stop: 09/20/23 10:09 Mirtazapine (Mirtazapine Tab 15 Mg Tab) 15 mg PO HS FARIBA Stop: 09/29/23 21:59 Last Admin: 08/31/23 21:20 Dose: 15 mg Sodium Chloride (Sodium Chloride 0.65% Na Soln 45 Ml ([place])) 1 - 2 sprays NA PRN PRN PRN Reason: Nasal Dryness/Congestion Stop: 09/20/23 10:09 Mental Health & Subst Abuse Tx Psychiatrist Name of Psychiatrist: [facility]- Dr. Mendoza Psychiatrist's Date Of Appointment With Psychiatric Provider: 09/17/2023 Time of Appointment with Psychiatrist: 11am Psychiatric Appointment Comment: telehealth Therapist Name of Therapist: OPHELIA Hilario Therapist's Date of Therapist Appointment: 09/03/2023 Time of Therapist Appointment: 2PM Therapy Appointment Comment: Virtual Post Discharge Appointments Primary Care Physician Name Of Family Doctor/PCP: Dr. Ascencion Berry Primary Care Time of Appointment with PCP: please follow up as needed Provider Appointment Comment: [address], [place] [address] Contact Information Discharge Discharge [address]: [address] [place] [address], [place] [address]
--- NOTE | 2023-09-02 11:09 | Discharge Summary ---
Date of Service September 02, 2023 History of Present Illness as per Dr. Seymour on admission: Per my psychiatric consultation from 08/20/2023: I know Melvi from her last hospitalization here when I met her on July 24. At that time, she had come into the hospital after she had gotten a hold of a gun and hit it with a plan to use it. We ended up admitting her to the psychiatric unit for safety, further evaluation, and treatment. She was started on Cymbalta and is tolerated it well but is only been on it for a little over 3 weeks. Today, when I meet with her and her she says that yesterday at around 1 PM she overdosed on Tylenol PM. She took about 40 of them and fully expected to from it. At this time, she is glad that she is still alive. However, yesterday and over the last few days she has been feeling very overwhelmed. She thinks she went back to her normal routine a little bit too quickly after leaving the hospital. She started cutting again after being out of the hospital for about a week. Recently, her found a bag of pills and knives that the patient had been hiding and took them away from her. At that point, the patient panicked and went back to their old house (they are in the process of moving to a new apartment) and then took the pills. Soon after, she became scared and called 911. Today, she is feeling somewhat groggy but otherwise not having any terrible symptoms. She has a history of a suicide attempt about 9 years ago when she tried to strangle herself. She works at [employer] in the [employer] department. She and her have been having financial stress. She has a toddler that she is trying to care for. Recently, and therapy, some of her "childhood stuff" came up and that caused her some stress. She says that she has been continuing to have lots of symptoms of depression. Today I met with the patient, received nursing report, and reviewed her chart. I also discussed the case with Dr. Guaman via text. Yesterday, I had seen the patient with her present, but he was not here today. Patient has been moved to the second floor from the ICU and is doing much better. She is now finished with her N-acetylcysteine. Dr. Guaman feels that she will be able to transfer to the psychiatric unit today. Patient was able to get some sleep but has had some loose stools lately. She ate some as well. She is physically doing okay after the overdose of Tylenol PM. She denied suicidal ideation. She feels safe here in the hospital. She denies homicidal thoughts. She denies hallucinations. She says that her relationship with her is actually very good but she does not open up with him very much. Physical Exam Psychiatric See admission H&P and DOD assessment. Vital Signs (Past 24 Hours) Last Vital Signs Temp 36.8 C 09/02/23 09:20 Pulse 80 09/02/23 09:20 Resp 16 09/02/23 09:20 BP 128/58 L 09/02/23 09:20 Pulse Ox 100 09/02/23 09:20 O2 Del Method Room Air 08/27/23 06:18 Principal Diagnosis major depressive disorder Psychiatric Data See daily stay summary. In short, safety was maintained and the patient was cooperative with care. Medication changes included continuing Cymbalta following Tylenol OD and adding Remeron and they tolerated this well with improved sleep. She requested Vistaril prn sparingly for anxiety but it was effective and discussed short supply upon discharge. She agreed to have keep medications and provide 7 day supply only in a pill minder for safety. Re- reviewed risks of sedation with medications and driving and safety of OTC medications and again to limit access. A safety plan was completed prior to discharge. She was motivated to complete [facility] intake process/start IOP. [facility] paperwork was completed per Dr. Persaud. Day of Discharge Assessment Today the patient voices readiness for discharge. They note improvement in mood and deny thoughts to harm self or others. Thoughts remain organized and they are improved from admission. There is no evidence of psychosis. They agree to take mediations as prescribed and keep follow-up appointments. They are stable for discharge to outpatient level of care. Transition of Care Transition Of Care Record: was reviewed with the patient Advance Directives Advance Directives Information Provided: Yes Advance Directives: No Mental Health Advance Directive: No Advance Directives on File: No Living Will: No Power of Apprentice Painter Brush: No Advance Directives Reason:: Declines as Mental Health Visit. Suicide Risk Level Suicide Risk Level Comments: Suicide risk at discharge is deemed low in that the patient is no longer requiring 24-hr monitoring, has a safety plan, and is free of suicidal ideation at discharge. Certainly she remains high risk patient given past attempts/SIB hx and chronicity of SI but factors that can be mitigated have been addressed. Risk Factors Assessment : Yes Do You Have Access To A Gun?: No Mental Health Diagnoses: Yes Previous Attempt: Yes Previous Psychiatric Hospitalization: Yes Protective Factors Assessment : Yes Responsible for Young Children: Yes Employed: Yes Supportive Family: Yes Tobacco Cessation at Discharge Tobacco Cessation Medication Prescribed at Discharge: Not Applicable/Non-Smoker Total Time Total Time Spent: Greater Than 30 Minutes (34 min) Total Time Includes: Examination of the patient, Discharge Planning and Medication Reconciliation Discharge Data Lab Results see medical hospitalization Hospital Course (1) Major depressive disorder, recurrent severe without psychotic features: (2) Suicide attempt by acetaminophen overdose: Plan 09/01/2023: finalize safety plan and aftercare, patient agreeable to remain hospi talized pending 08/31/2023: continue current meds and tx plan. 08/30/2023: Increase mirtazapine to 15mg HS 08/29/2023: Stitches removed. FMLA paperwork completed. Continue current medications and tx plan. 08/28/2023: * Start mirtazapine 7.5mg HS * Continue Cymbalta 60mg daily 08/27/2023: Continue current medication and tx plan. reviewed care as per Dr. Seymour below: 08/22/2023: Right now, I do not think I can trust her to be safe. Given her history of minimizing and then being secretive about guns and scalpels and pills at home, I think we have to keep her here for safety and further treatment. I think she is minimizing today. I still believe she is in acute danger to herself. 08/23/2023: Patient is starting to show some glimpses of improvement, but I do not know if I can trust it. She has a history of minimizing and admitted that she left the hospital too early last time. I am glad to see her participating in trying hard. I still feel she is in acute danger to herself and requires inpatient hospitalization. 08/24/2023: I am still very concerned. She is getting down on herself because she is not getting better on her timetable. She also seems like she is d istancing herself from her family. I think she is at higher risk of suicide at this time. I will talk to her tomorrow about possibly making a medication change if she is not seeing much improvement. In the meantime, I encouraged her to keep going to groups and activities and behavioral activation. 08/25/2023: Today is the first day that I am seeing some distinct improvement. We had a good talk about her concerns about using technology. We also spent more time talking about how important it is to try to make oneself vulnerable at times to others. No wonder, however, why that is difficult for her after which she described. While I am still very concerned about her safety, it feels like we are starting to turn a corner at this point. 08/26/2023: We are seeing improvement, but I am not sure I can trust her. I am still very concerned that she is somehow coming up with a way to get out of the hospital more quickly so she can end her life. Mental Health & Subst Abuse Tx Psychiatrist Name of Psychiatrist: [facility]- Dr. Mendoza Psychiatrist's Date Of Appointment With Psychiatric Provider: 09/17/2023 Time of Appointment with Psychiatrist: 11am Psychiatric Appointment Comment: telehealth Psychiatrist Release of Information: Obtained, Reviewed and Signed Therapist Name of Therapist: OPHELIA Hilario Therapist's Date of Therapist Appointment: 09/03/2023 Time of Therapist Appointment: 2PM Therapy Appointment Comment: Virtual Therapist Release of Information: Obtained, Reviewed and Signed Post Discharge Appointments Primary Care Physician Name Of Family Doctor/PCP: Dr. Ascencion Berry Primary Care Time of Appointment with PCP: please follow up as needed Provider Appointment Comment: [address], [place] [address] Primary Care Release of Information: Obtained, Reviewed and Signed Smoking Cessation Counseling Tobacco Cessation Medication Prescribed at Discharge: Not Applicable/Non-Smoker Contact Information Discharge Discharge [address]: [address] [place] [address] [place] [id number] Discharge Plan Discharge Items Patient Disposition: Home - Self-Care Reason For Visit: MDD Discharge Diagnosis: major depressive disorder Activity: Resume your previous activity Non-emergency contact: Primary Care Provider, Psychiatrist and Therapist Call non-emergency contact if: you have any medication questions and your symptoms worsen Follow-up/Referrals: Ascencion Berry, [Primary Care Provider] - Diet: Regular Addtl Attending Provider Instructions: SPECIAL CARE INSTRUCTIONS: 1. Follow through with your scheduled aftercare appointments. If unable to keep an appointment, please call to reschedule. 2. Take your medication only as prescribed. Medication should not be changed or stopped without the approval of your doctor. In the event of worsening symptoms or concerns about side effects, contact your doctor immediately. 3. Utilize new healthy coping skills, anger management skills, and stress management skills learned during your hospitalization. Journal feelings and process them with a support person. Identify stressors or situations that may result in relapse, deterioration or inappropriate behaviors and develop a plan to deal with those issues. 4. If your coping skills are ineffective and you are in crisis, contact your outpatient providers for direction. If unable to reach your providers, please call the [facility] CRISIS LINE AT , go to the [facility] walk-in center at [address] [place] [address] [facility], or go to the closest Emergency Room. 5. Avoid alcohol and un-prescribed drugs. 6. You have been provided with the Mental Health Advance Directives Pamphlet for your review. 7. Your condition is stable for discharge to outpatient level of care, but recovery is an ongoing process. Ifthoughts to harm yourself or others return, follow the safety plan developed during your stay. Planning for a safe return home includes securing weapons. Our treatment team recommends weaponsbe removed from the home until your outpatient provider reassesses your progress. In rare cases where the items themselvescannot be removed, guns and ammunitionshould be secured separatelyand keys stored by a reliable personoutside of the home. If you were admitted on an involuntary commitment, the police or other legal authorities may be involved in this process. AFTERCARE APPOINTMENTS: * Please call your insurance company prior to your scheduled appointment to confirm your aftercare providers are covered. Take your insurance information to your appointments. WHO TO CALL AND WHEN: Medical Emergencies: For questions or emergencies related to your hospital stay, please contact the Inpatient Behavioral Health Unit at [phone]. A shirring machine operator is on-call 16/12 for the Behavioral Health Unit for emergencies At any time you feel your situation is an emergency, you may also call 911 immediately. Pending Studies at Discharge: No Stand-Alone Forms: My [facility], Smoking Cessation Medications and DC Order Prescriptions: New hydroxyzine HCl 25 mg Tablet 25 mg PO Q4H PRN (Reason: anxiety) Qty: 10 0RF mirtazapine 15 mg Tablet 15 mg PO HS Qty: 30 0RF Continued duloxetine 60 mg Capsule,Delayed Release(Dr/Ec) 60 mg PO QAM Qty: 30 0RF Discharge Orders: Discharge Order (Routine); Ordered 09/02/23 Ordered By: Christine Olivera Admission Data Admit Date/Time: 08/21/23 14:43 Attending Provider: Tania Persaud Admit Provider: Carson Seymour Jr Primary Care Provider: Ascencion Berry Other Providers: Carson Seymour Jr Other Interventions: Discharge Summary Assessment (RN) Last Done: 09/02/23 09:20 Coding Level of Care Code 07849 D/C day mgmt > 30 min Diagnoses Major depressive disorder, recurrent severe without psychotic features F33.2 Suicide attempt by acetaminophen overdose T39.1X2A
== END 2023-09-02 10:30 | disposition home or self-care (01) | DRG 885 ==
LOC: SUATTDRO 14:43 → 3S 14:43

== ENCOUNTER 2024-02-25 14:47 | Inpatient (IN) ==
[2024-02-25 15:24] LABS: Appearance Urine Clear (Clear); Bacteria Urine Automated None Seen (None Seen); Bilirubin Urine Negative (Negative); Blood Urine Negative (Negative); Cast Urine Automated 0-2 /lpf (0-2); Color Urine Yellow; Glucose Urine UA Negative (Negative); Ketones Urine Negative (Negative); Leukocyte Esterase Urine 3+ (Negative); Nitrite Urine Negative (Negative); Protein Urine Negative (Negative); RBC Urine Automated 0-2 /hpf (0-2); Specific Gravity Urine 1.005 (1.000-1.030); Urobilinogen Urine Negative (Negative)
[2024-02-25 15:28] LABS: Basophils # (auto) 0.06 K/uL (0.00-0.20); Basophils % (auto) 0.6 %; Eosinophils # (auto) 0.48 K/uL (0.00-0.50); Eosinophils % (auto) 5.2 %; Hematocrit (blood only) 38.9 % (37.0-47.0); Hemoglobin 13.1 g/dl (12.0-16.0); Immature Granulocytes # (auto) 0.02 K/uL (0.01-0.20); Immature Granulocytes % (auto) 0.2 %; Lymphocytes # (auto) 1.86 K/uL (1.20-3.40); Lymphocytes % (auto) 20.1 %; Mean Corpuscular Hemoglobin 29.5 pg (25.0-34.0); Mean Corpuscular Hgb Conc 33.7 g/dL (32.0-36.0); Mean Corpuscular Volume 87.6 fL (80.0-100.0); Mean Platelet Volume 9.6 fL (9.4-12.4); Monocytes # (auto) 0.66 K/uL (0.11-0.59); Monocytes % (auto) 7.1 %; Neutrophils # (auto) 6.19 K/uL (1.40-6.50); Neutrophils % (auto) 66.8 %; Platelet Count 293 K/uL (130-400); RDW Coefficient of Variation 12.7 % (11.5-14.5); RDW Standard Deviation 40.5 fL (36.4-46.3); Red Blood Count 4.44 M/uL (4.20-5.40); White Blood Count 9.27 K/ul (4.8-10.8)
[2024-02-25 15:42] LABS: Acetaminophen < 3 ug/ml (10-30); Salicylate < 3.0 mg/dl (3.0-30)
[2024-02-25 15:45] LABS: Albumin Globulin Ratio 1.4 (0.9-2); Albumin Level 4.5 gm/dl (3.4-5.0); BUN Creatinine Ratio 13.6 (10-20); Bilirubin,Total 0.3 mg/dl (0.2-1.0); Calcium 9.2 mg/dl (8.6-10.3); Creatinine Clr Calc Pharmacy 176.6 ml/min; Globulin 3.2 gm/dl (2.5-4.0); Potassium 3.7 mmol/L (3.5-5.1); Total Protein 7.7 gm/dl (6.0-8.3)
[2024-02-25 15:59] LABS: Thyroid Stimulating Hormone 1.9 uIu/ml (0.300-4.500)
[2024-02-25 16:05] LABS: Amphetamines+Metham, Urine Neg (Neg); Barbiturates, Urine Neg (Neg); Benzodiazepine, Urine Neg (Neg); Cocaine, Urine Neg (Neg); Fentanyl, Urine Neg (Neg); MDMA (Ecstacy), Urine Neg (Neg); Marijuana, Urine Neg (Neg); Methadone, Urine Neg (Neg); Opiate, Urine Neg (Neg); Phencyclidine, Urine Neg (Neg)
[2024-02-25] MEDS: LIDOCAINE 1% LOCAL 20 ML VIAL INFIL ONE (16:48)
[2024-02-25 19:00] LABS: Pregnancy Test, Urine Negative (Negative)
[2024-02-25] MEDS ORDERED: BISMUTH SUBSALICYLATE LIQD 236 ML PO PRN (19:56)
[2024-02-25] MEDS ORDERED: SODIUM CHLORIDE 0.65% NA SOLN 45 ML (OCEAN) PRN (19:56)
[2024-02-25] MEDS ORDERED: ALUMINUM/MAGNESIUM SUSP 30 ML UDC PO PRN (19:56)
[2024-02-25] MEDS ORDERED: MAGNESIUM HYDROXIDE SUSP 30 ML UDC PO PRN (19:56)
[2024-02-25] MEDS ORDERED: hydrOXYzine HCl 25 MG TAB PO PRN (19:56)
[2024-02-25 21:56] VITALS: RESP 16
[2024-02-25] MEDS: ACETAMINOPHEN 325 MG TAB PO PRN (22:22)
--- NOTE | 2024-02-25 22:35 | Emergency Department Note ---
Impression & Plan Mood disorder, Intentional self-harm by razor blade ED Provider Note CHIEF COMPLAINT: Mental health evaluation, left arm laceration HISTORY OF PRESENT ILLNESS: This 33-year-old female patient with past medical history of depression, suicide attempt and self injury presents to the emergency department with complaints of a left arm laceration that was self-inflicted with a razor. The patient states she was here several days ago and had multiple sutures placed for similar. She states she was at work today and became very anxious and was unable to calm herself down. Patient states she intentionally cut deeper this time because she "has to." patient was recently hospitalized about 6 months ago after a suicide attempt. She states she overdosed on Tylenol and Benadryl. She spent some time in the ICU and then on [facility] Patient states she is currently following with a therapist and last saw her on Friday. She is taking her medications as prescribed. She believes her tetanus shot is up-to-date. She states risk is low. REVIEW OF SYSTEMS: A review of systems was performed with positives and pertinent negatives listed in the history of present illness. 10 systems were reviewed and are otherwise negative. ALLERGIES: see below MEDICATIONS: see below PMH: see below SOCIAL HISTORY: see below DDx: Mood disorder, infection, hypoglycemia, electrolyte abnormalities, toxicologic, trauma, Suicidal ideation, self-injurious behavior, as well as other pathologies. PHYSICAL EXAM: Vital signs reviewed. General: Well-appearing 33-year-old female, in no significant distress. HEENT: No scleral icterus, PERRLA, neck supple. moist mucous membranes. Atraumatic. Cardiovascular: Regular rate and rhythm, no extra sounds. Pulmonary: Clear to auscultation bilaterally, normal work of breathing. Abdomen: Soft, obese, nontender, nondistended, positive bowel sounds. Musculoskeletal: Atraumatic, no peripheral edema. Psych: Negative SI, negative HI Neurologic: Patient awake alert and oriented x 3, speech is clear Skin: Warm, dry, no rash. Multiple left upper extremity self-inflicted lacerations of varying stages of healing. There is a large 10 cm linear laceration to the dorsal aspect of the left distal arm. Bleeding is noted. Previous sutures are noted. EMERGENCY DEPARTMENT COURSE/MDM: This patient was evaluated and appeared to be in no significant distress. Physical examination is consistent with self- inflicted lacerations to the left upper extremity. 1 is approximately 10 cm and another 4 cm. Both lacerations were repaired by myself. Dressing was applied by nursing staff. Patient was medically cleared otherwise and referred to the mental health correctional casework specialist for assessment. The patient is felt the patient is escalating in her self-harm attempts as this was a large, deep wound. Tetanus status is up-to-date. She was referred to [facility] on a voluntary basis for inpatient admission and accepted. Please see their notes for further details. PROCEDURE:Location: Left forearm x 2 Total length: 14 cm Complexity: simple Verbal consent was obtained after the risks and benefits were explained, including but not limited to bleeding, scarring, infection, pain, and bone/joint/nerve damage. At this time, the risks of the procedure are less than the risks of NOT performing the procedure. A time out was taken and the correct patient and site identified. The skin was prepped with betadine. The target area was anesthetized with 7 ml of 1% lidocaine without epinephrine. Copious irrigation was performed using saline. The skin was re-prepped with betadine and a sterile field set. The wound was explored for foreign bodies and none found. Examination revealed no injury to deep structures such as tendons, bone, or significant blood vessels. Debridement was not performed. The wound edges were approximated using 5.0 Ethilon, 14 running nylon sutures. Second smaller 4 cm laceration approximated with 5 running 5.0 Ethilon sutures, hemostasis and excellent approximation was achieved. Antibacterial ointment and a sterile dressing applied. Detailed wound care instructions and signs and symptoms of infection reviewed with the patient. No complications and the patient tolerated the procedure well. DISPOSITION: Admit Past Med/Surg History Problem List (Updated 02/25/24 @ 22:47 by Samra Soriano MD) Intentional self-harm by razor blade (Acute) Mood disorder (Acute) Depression (Acute) Laceration (Acute) Medical History Major depressive disorder, recurrent severe without psychotic features Obesity Suicide attempt by acetaminophen overdose Suicidal ideation Intrahepatic cholestasis of Depression Surgical History S/P tonsillectomy Family History Mother Thyroid disease Grandfather (Paternal) Colorectal cancer Family/Other Breast cancer Mat cousin, PGGM Denies family history of Ovarian cancer Social History Smoking Status: Unknown if ever smoked Hx Alcohol Use: Yes Alcohol type: wine Hx Substance Use: No Preferred Language: Icelandic Communication Ability: Effective Balloon Artist Required: No Beliefs That Will Affect Care: None marital status: marital status details: Raymon (37) [phone] Current Living Situation: Spouse Current Living Situation Comment: lives with spouse, 2 cats, some reptiles, spouse to change litter current occupational status: employed 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 [employer] Feels Safe at Home: Yes Gender Identity: Female Assistive Devices: None and Glasses Allergies Allergies Allergy/AdvReac Type Severity Reaction Status Date / Time No Known Allergies Allergy Verified 02/25/24 19:26 Home Meds Home Medications Medication Instructions Recorded Confirmed duloxetine 20 mg capsule,delayed 40 mg PO QAM 12/27/23 02/25/24 release (Cymbalta) omeprazole 40 mg capsule,delayed 40 mg PO BID 12/27/23 02/25/24 release bupropion HCl 150 mg 24 hr tablet, 150 mg PO QAM 02/02/24 02/25/24 extended release (Wellbutrin XL) duloxetine 60 mg capsule,delayed 60 mg PO QAM 02/25/24 02/25/24 release (Cymbalta) Previous Rx's Medication Instructions Recorded hydroxyzine HCl 25 mg tablet 25 mg PO Q4H PRN anxiety #10 tabs 09/02/23 cephalexin 500 mg capsule 500 mg PO Q6H 7 days #28 caps 02/19/24 Results & Data (ED) Vital Signs Vital Signs - 24 hr 02/25/24 14:57 Temperature 36.7 C Temperature Source Skin Pulse Rate 120 H Respiratory Rate 18 Blood Pressure 141/97 H Blood Pressure Mean 111 Pulse Oximetry 99 Sepsis Recent Fever Within 48 Hours No Sepsis New/Unexplained Change in Mental Status No Sepsis Action Taken by Nursing No Action Required Home Medications Current Medication List: was personally reviewed by me Laboratory Data Attestation: I reviewed the patient's lab results. 02/25/24 15:11 02/25/24 15:11 Lab Results 02/25/24 02/25/24 Range/Units 15:03 15:11 WBC 9.27 (4.8-10.8) K/ul RBC 4.44 (4.20-5.40) M/uL Hgb 13.1 (12.0-16.0) g/dl Hct 38.9 (37.0-47.0) % MCV 87.6 (80.0-100.0) fL MCH 29.5 (25.0-34.0) pg MCHC 33.7 (32.0-36.0) g/dL RDW Std Deviation 40.5 (36.4-46.3) fL RDW Coeff of Deng 12.7 (11.5-14.5) % Plt Count 293 (130-400) K/uL MPV 9.6 (9.4-12.4) fL Immature Gran % (Auto) 0.2 % Neut % (Auto) 66.8 % Lymph % (Auto) 20.1 % Laurens % (Auto) 7.1 % Eos % (Auto) 5.2 % Baso % (Auto) 0.6 % Neut # (Auto) 6.19 (1.40-6.50) K/uL Lymph # (Auto) 1.86 (1.20-3.40) K/uL Laurens # (Auto) 0.66 H (0.11-0.59) K/uL Eos # (Auto) 0.48 (0.00-0.50) K/uL Baso # (Auto) 0.06 (0.00-0.20) K/uL Immature Gran # (Auto) 0.02 (0.01-0.20) K/uL Sodium 136 (136-145) mmol/L Potassium 3.7 (3.5-5.1) mmol/L Chloride 103 (98-107) mmol/L Carbon Dioxide 24 (21-32) mmol/L Anion Gap 9 (3-11) BUN 9 (6-23) mg/dl Creatinine 0.66 (0.6-1.2) mg/dl Est Cr Clr Drug Dosing 176.6 ml/min eGFR 120.20 BUN/Creatinine Ratio 13.6 (10-20) Glucose 91 (70-99(Fasting)) mg/dl Calcium 9.2 (8.6-10.3) mg/dl Total Bilirubin 0.3 (0.2-1.0) mg/dl AST 32 (13-39) U/L ALT 24 (7-52) U/L Alkaline Phosphatase 77 (34-104) U/L Total Protein 7.7 (6.0-8.3) gm/dl Albumin 4.5 (3.4-5.0) gm/dl Globulin 3.2 (2.5-4.0) gm/dl Albumin/Globulin Ratio 1.4 (0.9-2) TSH 1.900 (0.300-4.500) uIu/ml Urine Color Yellow Urine Appearance Clear (Clear) Urine pH 7.0 (4.5-7.5) Ur Specific Archbold 1.005 (1.000-1.030) Urine Protein Negative (Negative) Urine Glucose (UA) Negative (Negative) Urine Ketones Negative (Negative) Urine Blood Negative (Negative) Urine Nitrite Negative (Negative) Urine Bilirubin Negative (Negative) Urine Urobilinogen Negative (Negative) Ur Leukocyte Esterase 3+ H (Negative) Urine WBC (Auto) 11-20 H (0-5) /hpf Urine RBC (Auto) 0-2 (0-2) /hpf U Hyaline Cast (Auto) 0-2 (0-2) /lpf U Epithel Cells (Auto) 3-5 H (0-2) /hpf Urine Bacteria (Auto) None Seen (None Seen) Urine Test Negative (Negative) Salicylates < 3.0 L (3.0-30) mg/dl Urine Opiates Screen Neg (Neg) Ur Methadone, Qual Neg (Neg) Urine Fentanyl Screen Neg (Neg) Acetaminophen < 3 L (10-30) ug/ml Urine Barbiturates Neg (Neg) Ur Phencyclidine (PCP) Neg (Neg) U Amphetamin/Meth Scrn Neg (Neg) MDMA (Ecstasy) Screen Neg (Neg) U Benzodiazepines Scrn Neg (Neg) Ur Cocaine Metabolite Neg (Neg) U Marijuana (THC) Screen Neg (Neg) Ethyl Alcohol mg/dL < 10.0 (<10.0) mg/dl SARS-CoV-2, RNA, NAAT NEGATIVE (NEGATIVE) Administered Medications Acetaminophen (Acetaminophen 325 Mg Tab) 650 mg PO Q4H PRN PRN Reason: Headache or Minor Fever Stop: 03/26/24 19:55 Last Admin: 02/25/24 22:22 Dose: 650 mg Documented By: RB Discontinued Medications Lidocaine HCl (Lidocaine 1% Local 20 Ml Vial) 20 ml INFIL NOW ONE Stop: 02/25/24 15:51 Last Admin: 02/25/24 16:48 Dose: 10 ml Documented By: BBF Discharge Plan Visit Data Chief Complaint: Mental Health Evaluation Stated Complaint: CUT LT ARM ED Provider: Samra Soriano Discharge Problem: Mood disorder, Intentional self-harm by razor blade Patient Disposition: Admitted As Inpatient Discharge Instructions Interventions: ED Discharge Assessment Last Done: 02/25/24 20:05
[2024-02-25] MEDS: hydrOXYzine HCl 25 MG TAB PO PRN (23:30)
--- NOTE | 2024-02-26 08:43 | History & Physical ---
Date of Service February 26, 2024 Impression / Recommendations Impression JOY MILLAN is a 33-year-old woman who currently lives in [place] with her and son (almost 3), has a history of depression, anxiety ,self- harm, and was admitted on 02/25/24 19:56 on a 201 voluntary commitment for SI and escalating self-harm requiring 19 sutures. Diagnostically consistent with generalized anxiety disorder with panic attacks and unspecified depression with differential including borderline personality disorder given extensive self-harm as well as likely major depressive though current episode seems to be less severe than in the past. Discussed medication treatment options in detail. Discussed risks, benefits and alternatives. Patient would like to start and consented to naltrexone as off label for self-harm urges, trazodone for sleep/depression and propranolol as of f-label for panic attacks/anxiety as well as continuing Wellbutrin for MDD and continuing duloxetine for MDD/TARA. Reviewed side effects including but not limited to: potential increased noradrenergic effects with dual SNRI and Wellbutrin use and reviewed elevated HR this AM; opioid blockade/potential worsened depression/liver failure with naltrexone; sedation with trazodone; low BP/syncope with propranolol. MNPR due to extensive lacerations and need to allow exposure to air and option to wear short-sleeves in her room and especially at night Overall I spent a total of 75 minutes for this admission including review of chart records, review of labwork, direct evaluation of the patient, counseling the patient, ordering medication, risk assessment, discussion with the psychiatric liason RN and documentation in the electronic health record. (1) Depression: Depression Type: unspecified Qualified Code(s): F32.A - Depression, unspecified (2) Intentional self-harm by razor blade: (3) Laceration: (4) Generalized anxiety disorder with panic attacks: Plan 02/26/2024: The patient was admitted to the [facility] on q15 min checks (behavioral with suicide precautions) for safety. The patient will participate in group, recreational, and milieu therapies and will be offered additional individual and family sessions as clinically appropriate. -Medications: * start trazodone 50mg HS and 50mg HS prn insomnia * start naltrexone 50mg daily dinner * start propranolol 10mg BID prn * continue duloxetine 100mg daily * continue Wellbutrin XL 150mg daily -Provided with Jesus BPD screening tool Inventory Assets Strengths: supportive relationships, willing to get treatment Needs: safety and stabilization, medication adjustment, additional coping skills, increased outpatient services Suicide Risk Level Suicide Risk Level: Moderate (q15 min suicide checks) (some depression symptoms, SI, self-harm but feels safe in the hospital) Risk Factors Assessment Male: No : Yes Do You Have Access To A Gun?: No Health Problems: No Mental Health Diagnoses: Yes Substance Use Disorders: No Previous Attempt: Yes Family History of Suicide: Yes Previous Psychiatric Hospitalization: Yes Hopelessness: No Protective Factors Assessment : Yes Responsible for Young Children: Yes Employed: Yes ([employer]) Stable Relationships: Yes Supportive Family: Yes Good Rapport with Provider: Yes Psychiatric History Identifying Data JOY MILLAN is a 33-year-old woman who currently lives in [place] with her and son (almost 3), has a history of depression, anxiety ,self- harm, and was admitted on 02/25/24 19:56 on a 201 voluntary commitment for SI and escalating self-harm requiring 19 sutures. Chief Complaint "Obviously what I'm doing isn't helping". 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 She has presented to the emergency department multiple times in December and January (5th presentation was yesterday) for self-harm lacerations to her legs and arms requiring sutures. She was at work and started to have intense anxiety with symptoms of tunnel vision, ears ringing, shortness of breath forcing her to leave work and once at home she was alone in the house and cut her arm in two places with a razor. She ended up getting more deeply then she intended and had to come to the hospital to get sutures. She describes the self-harm urges as intense and unbearable, and expresses concern about how inpatient treatment will be helpful when she returns home to her stressors. She's been self-harming "pretty much" daily though in the last week tried to self-harm less after requiring sutures and antibiotics from an episode last week. Has come to the hospital if she can't stop the bleeding or steri-strip on her own. Typically self-harms at night once her son is asleep. She notes at this point there is a significant urge and habit to harm. She reports engaging in self-harm behaviors daily, primarily at night using a razor on her arm. She has participated in the intensive outpatient program via [facility] previously and learned DBT skills and she's started attending their alumni DBT skill and compassion group meetings again to try to practice these skills again. She found that the DBT skills helped reduce her self-harm behaviors at that time when doing the IOP, but has struggled to maintain use of those skills with her current responsibilities and stressors. Her mood has been more stable since starting Wellbutrin one month ago, but she continues to struggle with increased anxiety recently. Sleep has been poor, only slept 5 hours last night. She has been Cymbalta and Wellbutrin for depression, as and she feels her mood has improved though she continues to have anxiety and chronic intermittent SI. She has also been taking Vistaril as needed for anxiety and sleep, but finds this isn't really helpful. She feels her general mood and depression has been ok. Wellbutrin was started a month ago and seems to be helping. Her anxiety has been more difficult recently but it seemed to be increasing even prior to initiation of Wellbutrin. She endorses symptoms of panic attacks which have started recently including intense anxiety, facial and hand numbness, tunnel vision, difficulty breathing, racing heart, and sense of doom. She is currently prescribed psychiatric medications of duloxetine 100mg daily (seems to helping), Wellbutrin XL 150mg (started about a month ago, seemed to help a bit with depression, helped with sexual interest) and Vistaril 25mg prn for anxiety (typically takes to help with sleep, doesn't find it very effective). Psychiatric ROS notable for no current nor history of symptoms of morgan, psychosis, OCD nor eating disorder. Past Psychiatric History Current Psychiatric Diagnosis: MDD Outpatient Services: Dr. Mendoza for psychiatry, Jed Nelson for therapy at [facility] psych clinic going twice weekly Previous Psych Admissions: [facility] in July 2023 and Jun/August 2023 Do You Have Access To A Gun?: No History of Previous Suicide Attempt: Yes Describe Attempts in the Past: 2x-OD of tylenol in July, attempt via hanging Past Medication Trials: hx fluoxetine (made her feel numb), sertraline (not helpful for depression, possibly helped anxiety), mirtazapine helped with sleep but caused significant increase in appetite. Allergies Allergy/AdvReac Type Severity Reaction Status Date / Time No Known Allergies Allergy Verified 02/25/24 19:26 Home Medications Medication Instructions Recorded Confirmed Type hydroxyzine HCl 25 mg tablet 25 mg PO Q4H PRN anxiety #10 tabs 09/02/23 02/25/24 Rx duloxetine 20 mg capsule,delayed 40 mg PO QAM 12/27/23 02/25/24 History release (Cymbalta) omeprazole 40 mg capsule,delayed 40 mg PO BID 12/27/23 02/25/24 History release bupropion HCl 150 mg 24 hr tablet, 150 mg PO QAM 02/02/24 02/25/24 History extended release (Wellbutrin XL) cephalexin 500 mg capsule 500 mg PO Q6H 7 days #28 caps 02/19/24 02/25/24 Rx duloxetine 60 mg capsule,delayed 60 mg PO QAM 02/25/24 02/25/24 History release (Cymbalta) Family History Family History of: Suicide Completion (uncle) Alcohol History Hx of Alcohol Use Over the Past 12 Months: No AUDIT Total Score: 0 No alcohol use Smoking Use Have You Smoked or Used Tobacco Products in the Last 30 Days: No Smoking Status: Never smoker Substance History Hx of Prescription Med Misuse Over the Past 12 Months: No Hx of Over the Counter Med Misuse Over the Past 12 Months: No Hx of Inhalent Misuse Over the Past 12 Months: No Hx of Organic Substance Use Over the Past 12 Months: No Hx of Illegal Substances/Street Drug Use Over Past 12 Months: No Problems as a Result of Past Substance Use: None Identified Has medical marijuana card but only tried a few times and no cannabis use in the last month Personal History Living Arrangements: Home Highest Grade Completed: College Employment Status: [employer] Employ[employer] Marital Status: Number Of Children: 3 yo son Beliefs That Will Affect Care: None Current Legal Problems: No Hx Legal Problems: No Hx Traumatic Life Events: Yes Patient History Medical History Major depressive disorder, recurrent severe without psychotic features Obesity Suicide attempt by acetaminophen overdose Suicidal ideation Intrahepatic cholestasis of Depression Surgical History S/P tonsillectomy Family History Mother Thyroid disease Grandfather (Paternal) Colorectal cancer Family/Other Breast cancer Mat cousin, PGGM Denies family history of Ovarian cancer Social History Smoking Status: Unknown if ever smoked Hx Alcohol Use: Yes Alcohol type: wine Hx Substance Use: No Preferred Language: Yakut Communication Ability: Effective Weir Fisher Required: No Beliefs That Will Affect Care: None marital status: marital status details: Raymon [phone]) [phone] Current Living Situation: Spouse Current Living Situation Comment: lives with spouse, 2 cats, some reptiles, spouse to change litter current occupational status: employed 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 [employer] Feels Safe at Home: Yes Gender Identity: Female Assistive Devices: None and Glasses Review of Systems Review of Systems: All systems reviewed & are unremarkable except as noted in HPI & below Physical Exam Psychiatric: Orientation: alert and oriented x 3 Apperance: appropriately dressed and appropriately groomed Eye Contact: good eye contact Motor Behavior: no abnormal motor movements Speech: normal rate/rhythm/volume of speech Affect: + anxious affect Mood: + depressed mood and + anxious mood Thought Process: goal directed thought process Thought Content: reality based without delusions Suicidal Thoughts: denies suicidal plan and denies suicidal intent; + reports suicidal thoughts (intermittent thoughts ) Homicidal Thoughts: denies homicidal thoughts Hallucinations: no auditory hallucinations and no visual hallucinations Cognition: recent memory grossly intact, remote memory grossly intact, attention grossly intact and language grossly intact Estimated Intelligence: consistent with education level Insight: + fair insight Judgment: + limited judgement Vital Signs (Past 24 Hours): Last Vital Signs Temp 35.6 C L 02/26/24 06:00 Pulse 120 H 02/26/24 06:32 Resp 16 02/26/24 06:00 BP 121/82 02/26/24 06:32 Pulse Ox 98 02/25/24 20:58 O2 Del Method Room Air 02/25/24 20:58 Exam Statement: A physical exam was performed in the ED by Dr. Soriano for the purposes of medical clearance. I accept that physical as correct and adequate for the purposes of the inpatient physical exam. Results & Data ([facility]) Laboratory Results Laboratory Results - last 24 hr 02/25/24 02/25/24 15:03 15:11 WBC 9.27 RBC 4.44 Hgb 13.1 Hct 38.9 MCV 87.6 MCH 29.5 MCHC 33.7 RDW Std Deviation 40.5 RDW Coeff of Deng 12.7 Plt Count 293 MPV 9.6 Immature Gran % (Auto) 0.2 Neut % (Auto) 66.8 Lymph % (Auto) 20.1 Mcculloch % (Auto) 7.1 Eos % (Auto) 5.2 Baso % (Auto) 0.6 Neut # (Auto) 6.19 Lymph # (Auto) 1.86 Mcculloch # (Auto) 0.66 H Eos # (Auto) 0.48 Baso # (Auto) 0.06 Immature Gran # (Auto) 0.02 Sodium 136 Potassium 3.7 Chloride 103 Carbon Dioxide 24 Anion Gap 9 BUN 9 Creatinine 0.66 Est Cr Clr Drug Dosing 176.6 eGFR 120.20 BUN/Creatinine Ratio 13.6 Glucose 91 Calcium 9.2 Total Bilirubin 0.3 AST 32 ALT 24 Alkaline Phosphatase 77 Total Protein 7.7 Albumin 4.5 Globulin 3.2 Albumin/Globulin Ratio 1.4 TSH 1.900 Urine Color Yellow Urine Appearance Clear Urine pH 7.0 Ur Specific Br[place]au 1.005 Urine Protein Negative Urine Glucose (UA) Negative Urine Ketones Negative Urine Blood Negative Urine Nitrite Negative Urine Bilirubin Negative Urine Urobilinogen Negative Ur Leukocyte Esterase 3+ H Urine WBC (Auto) 11-20 H Urine RBC (Auto) 0-2 U Hyaline Cast (Auto) 0-2 U Epithel Cells (Auto) 3-5 H Urine Bacteria (Auto) None Seen Urine Test Negative Salicylates < 3.0 L Urine Opiates Screen Neg Ur Methadone, Qual Neg Urine Fentanyl Screen Neg Acetaminophen < 3 L Urine Barbiturates Neg Ur Phencyclidine (PCP) Neg U Amphetamin/Meth Scrn Neg MDMA (Ecstasy) Screen Neg U Benzodiazepines Scrn Neg Ur Cocaine Metabolite Neg U Marijuana (THC) Screen Neg Ethyl Alcohol mg/dL < 10.0 SARS-CoV-2, RNA, NAAT NEGATIVE Current Inpatient Medications Current Inpatient Medications: Current Inpatient Medications Acetaminophen (Acetaminophen 325 Mg Tab) 650 mg PO Q4H PRN PRN Reason: Headache or Minor Fever Stop: 11/01/24 19:55 Last Admin: 02/25/24 22:22 Dose: 650 mg Al Hydrox/Mg Hydrox/Simethicone (Aluminum/Magnesium Susp 30 Ml Udc) 30 ml PO Q4H PRN PRN Reason: GI Upset Stop: 03/26/24 19:55 Bismuth Subsalicylate (Bismuth Subsalicylate Liqd 236 Ml) 15 ml PO PRN PRN PRN Reason: Loose Stool Stop: 03/26/24 19:55 Hydroxyzine HCl (Hydroxyzine Hcl 25 Mg Tab) 50 mg PO HSZ PRN PRN Reason: Insomnia Stop: 03/26/24 19:55 Last Admin: 02/25/24 23:30 Dose: 50 mg Hydroxyzine HCl (Hydroxyzine Hcl 25 Mg Tab) 25 mg PO Q4H PRN PRN Reason: Anxiety Stop: 03/26/24 19:55 Magnesium Hydroxide (Magnesium Hydroxide Susp 30 Ml Udc) 30 ml PO DAILY PRN PRN Reason: Constipation Stop: 03/26/24 19:55 Sodium Chloride (Sodium Chloride 0.65% Na Soln 45 Ml ([place])) 1 - 2 sprays NA PRN PRN PRN Reason: Nasal Dryness/Congestion Stop: 03/26/24 19:55
[2024-02-26] MEDS ORDERED: BISMUTH SUBSALICYLATE 262 MG CHEW PO PRN (09:00)
[2024-02-26] MEDS: cephALEXin 500 MG CAP PO SCH (09:37)
[2024-02-26] MEDS ORDERED: traZODone HCL 50 MG TAB PO PRN (13:52)
[2024-02-26] MEDS ORDERED: PROPRANOLOL HCL 10 MG TAB PO PRN (13:52)
[2024-02-26] MEDS: DULoxetine HCL 20 MG CAP PO SCH (14:46)
[2024-02-26] MEDS: DULoxetine HCL 60 MG CAP PO SCH (14:46)
[2024-02-26] MEDS: NALTREXONE HCL 50 MG TAB PO SCH (18:08)
[2024-02-26] MEDS: PANTOprazole 40 MG TAB PO SCH (21:27)
[2024-02-26] MEDS: traZODone HCL 50 MG TAB PO SCH (21:27)
--- NOTE | 2024-02-27 08:42 | Psychiatric Progress Note ---
Date of Service February 27, 2024 Impression / Recommendations Impression JOY MILLAN is a 33-year-old woman who currently lives in [place] with her and son (almost 3), has a history of depression, anxiety ,self- harm, and was admitted on 02/25/24 19:56 on a 201 voluntary commitment for SI and escalating self-harm requiring 19 sutures. Diagnostically consistent with generalized anxiety disorder with panic attacks and unspecified depression with differential including borderline personality disorder given extensive self-harm as well as likely major depressive though current episode seems to be less severe than in the past. A: Ongoing self-harm urges, anxiety, depression but some improvement in panic attacks and lessening of self-harm urges today which she attributes to being away from stressors and safety of the inpatient enviornment. Psychoeducation provided about BPD given positive Jesus screen. Reviewed DBT resources. She consents to increasing trazodone to further target insomnia. MNPR due to extensive lacerations and need to allow exposure to air and option to wear short-sleeves in her room and especially at night Overall, I spent a total of 30 minutes on this case including meeting with the patient, reviewing the chart, nursing report, multidisciplinary team meeting, orders, and documentation. (1) Depression: (2) Intentional self-harm by razor blade: (3) Laceration: (4) Generalized anxiety disorder with panic attacks: (5) Borderline personality disorder in adult: Plan 02/27/2024: -Increase trazodone to 100mg HS -Continue other medications and tx plan. 02/26/2024: The patient was admitted to the [facility] ([facility]) on q15 min checks (behavioral with suicide precautions) for safety. The patient will participate in group, recreational, and milieu therapies and will be offered additional individual and family sessions as clinically appropriate. -Medications: * start trazodone 50mg HS and 50mg HS prn insomnia * start naltrexone 50mg daily dinner * start propranolol 10mg BID prn * continue duloxetine 100mg daily * continue Wellbutrin XL 150mg daily -Provided with Jesus BPD screening tool Inventory Assets Strengths: supportive relationships, willing to get treatment Needs: safety and stabilization, medication adjustment, additional coping skills, increased outpatient services Suicide Risk Level Suicide Risk Level: Moderate (q15 min suicide checks) (some depression symptoms, SI, self-harm, worsening panic attacks but feels safe in the hospital and feels able to ask for support) Suicide Risk Level Comments: Risk Factors Assessment Male: No : Yes Do You Have Access To A Gun?: Yes (But locked in safe) Health Problems: No Mental Health Diagnoses: Yes Substance Use Disorders: No Previous Attempt: Yes Family History of Suicide: Yes Previous Psychiatric Hospitalization: Yes Hopelessness: No Protective Factors Assessment : Yes Responsible for Young Children: Yes 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 Chief Complaint "Woke up a lot but fell asleep more easily". Review of Systems Sleep Information Total Hours of Sleep: 7 Sleep Comments: HS Trazadone Meal Information Percent Meal Consumed - Breakfast: 75 Percent Meal Consumed - Lunch: 100 Percent Meal Consumed - Dinner: 100 Subjective Subjective Patient was seen & assessed and interval progress reviewed with treatment team nursing and social work. Attending groups, appropriate with peers. Having shame and guilt about needing to be in the hospital. One of her lacerations dehisced and steri strips were placed. Has been drawing to cope. Slept more last night. Today still with intermittent anxiety. Still with self-harm urges, especially after group therapy topic was about self-harm. She feels the lack of access to self-harm items in the inpatient setting helps but also getting out from the ritual at home of setting out her razor and bandage supplies. She also notes being away from her many stressors of work, school and childcare helps lessen the self-harm urges and SI. Fell asleep more easily with trazodone but then had multiple awakenings. Hasn't had to try propranolol yet for anxiety. Tolerated initial dose of naltrexone without any side effects. Reviewed BPD screening tool, reviewed DBT workbook and resources. Physical Exam Psychiatric Orientation: alert and oriented x 3 Apperance: appropriately dressed and appropriately groomed Eye Contact: good eye contact Motor Behavior: no abnormal motor movements Speech: normal rate/rhythm/volume of speech Affect: + anxious affect Mood: + depressed mood and + anxious mood Thought Process: goal directed thought process Thought Content: reality based without delusions Suicidal Thoughts: denies suicidal plan and denies suicidal intent; + reports suicidal thoughts (intermittent thoughts ) Homicidal Thoughts: denies homicidal thoughts Hallucinations: no auditory hallucinations and no visual hallucinations Cognition: recent memory grossly intact, remote memory grossly intact, attention grossly intact and language grossly intact Estimated Intelligence: consistent with education level Insight: + fair insight Judgment: + limited judgement Vital Signs (Past 24 Hours) Last Vital Signs Temp 36.7 C 02/27/24 03:40 Pulse 90 02/27/24 03:41 Resp 16 02/27/24 03:40 BP 108/73 02/27/24 03:41 Pulse Ox 100 02/27/24 03:40 O2 Del Method Room Air 02/27/24 03:40 Results & Data ([facility]) Current Inpatient Medications Current Inpatient Medications: Current Inpatient Medications Acetaminophen (Acetaminophen 325 Mg Tab) 650 mg PO Q4H PRN PRN Reason: Headache or Minor Fever Stop: 03/26/24 19:55 Last Admin: 02/26/24 21:38 Dose: 650 mg Al Hydrox/Mg Hydrox/Simethicone (Aluminum/Magnesium Susp 30 Ml Udc) 30 ml PO Q4H PRN PRN Reason: GI Upset Stop: 03/26/24 19:55 Bismuth Subsalicylate (Bismuth Subsalicylate 262 Mg Chew) 2 tab PO Q30M PRN PRN Reason: Loose Stool/Diarrhea Stop: 03/27/24 08:59 Bupropion HCl (Bupropion Xl 150 Mg Tabcr) 150 mg PO QAM FARIBA Stop: 03/28/24 08:59 Cephalexin HCl (Cephalexin 500 Mg Cap) 500 mg PO Q6H FARIBA; Protocol Stop: 03/04/24 08:59 Last Admin: 02/27/24 03:01 Dose: 500 mg Duloxetine HCl (Duloxetine Hcl 60 Mg Cap) 60 mg PO QAM FARIBA Stop: 03/27/24 13:29 Last Admin: 02/26/24 14:46 Dose: 60 mg Duloxetine HCl (Duloxetine Hcl 20 Mg Cap) 40 mg PO QAM FARIBA Stop: 03/27/24 13:29 Last Admin: 02/26/24 14:46 Dose: 40 mg Hydroxyzine HCl (Hydroxyzine Hcl 25 Mg Tab) 50 mg PO HSZ PRN PRN Reason: Insomnia Stop: 03/26/24 19:55 Last Admin: 02/25/24 23:30 Dose: 50 mg Hydroxyzine HCl (Hydroxyzine Hcl 25 Mg Tab) 25 mg PO Q4H PRN PRN Reason: Anxiety Stop: 03/26/24 19:55 Magnesium Hydroxide (Magnesium Hydroxide Susp 30 Ml Udc) 30 ml PO DAILY PRN PRN Reason: Constipation Stop: 03/26/24 19:55 Naltrexone HCl (Naltrexone Hcl 50 Mg Tab) 50 mg PO DAILYBD FARIBA Stop: 03/27/24 17:14 Last Admin: 02/26/24 18:08 Dose: 50 mg Pantoprazole Sodium (Pantoprazole 40 Mg Tab) 40 mg PO BID FARIBA Stop: 03/27/24 20:59 Last Admin: 02/26/24 21:27 Dose: 40 mg Propranolol HCl (Propranolol Hcl 10 Mg Tab) 10 mg PO BID PRN PRN Reason: Anxiety Stop: 03/27/24 20:59 Sodium Chloride (Sodium Chloride 0.65% Na Soln 45 Ml ([place])) 1 - 2 sprays NA PRN PRN PRN Reason: Nasal Dryness/Congestion Stop: 03/26/24 19:55 Trazodone HCl (Trazodone Hcl 50 Mg Tab) 50 mg PO HS FARIBA Stop: 03/27/24 21:59 Last Admin: 02/26/24 21:27 Dose: 50 mg Trazodone HCl (Trazodone Hcl 50 Mg Tab) 50 mg PO HS PRN PRN Reason: insomnia Stop: 03/27/24 21:59 Mental Health & Subst Abuse Tx Psychiatrist Date Of Appointment With Psychiatric Provider: 03/17 or 03/14 Therapist Name of Therapist: Dr. Thor Spivey, [place] [facility] Date of Therapist Appointment: 02/27/24 and 03/01/24 Time of Therapist Appointment: 2pm on 02/27/24 and 1pm on 03/01/24 Web Production Artist Name of Web Production Artist: None Post Discharge Appointments Primary Care Physician Name Of Family Doctor/PCP: Dr. Ascencion Berry Date of Future Appointment with PCP: 07/2024 (1) Depression Depression Type: unspecified Qualified Code(s): F32.A - Depression, unspecified
[2024-02-27] MEDS: buPROPion XL 150 MG TABCR PO SCH (08:47)
[2024-02-27] MEDS: traZODone HCL 100 MG TAB PO SCH (21:25)
--- NOTE | 2024-02-28 23:52 | Psychiatric Progress Note ---
Date of Service February 28, 2024 Impression / Recommendations Impression JOY MILLAN is a 33-year-old woman who currently lives in [place] with her and son (almost 3), has a history of depression, anxiety ,self- harm, and was admitted on 02/25/24 19:56 on a 201 voluntary commitment for SI and escalating self-harm requiring 19 sutures. Diagnostically consistent with generalized anxiety disorder with panic attacks and borderline personality disorder given extensive self-harm as well as chronic SI (though generally passive) & affective instability. Also describes today chronic depressive mood, black & white thinking and an intense fear of abandonment. A: Self-harm urges, anxiety & depression improving. Denies extensive self-harm urges today. MNPR due to extensive lacerations and need to allow exposure to air and option to wear short-sleeves in her room and especially at night Overall, I spent a total of 35w minutes on this case including meeting with the patient, reviewing the chart, nursing report, multidisciplinary team meeting, orders, and documentation. (1) Depression: (2) Intentional self-harm by razor blade: (3) Laceration: (4) Generalized anxiety disorder with panic attacks: (5) Borderline personality disorder in adult: Plan 02/28/2024: - No changes to plan. 02/27/2024: -Increase trazodone to 100mg HS -Continue other medications and tx plan. 02/26/2024: The patient was admitted to the [facility] ([facility]) on q15 min checks (behavioral with suicide precautions) for safety. The patient will participate in group, recreational, and milieu therapies and will be offered additional individual and family sessions as clinically appropriate. -Medications: * start trazodone 50mg HS and 50mg HS prn insomnia * start naltrexone 50mg daily dinner * start propranolol 10mg BID prn * continue duloxetine 100mg daily * continue Wellbutrin XL 150mg daily -Provided with Jesus BPD screening tool Inventory Assets Strengths: supportive relationships, willing to get treatment Needs: safety and stabilization, medication adjustment, additional coping skills, increased outpatient services Suicide Risk Level Suicide Risk Level: Moderate (q15 min suicide checks) (some depression symptoms, SI, self-harm, worsening panic attacks but feels safe in the hospital and feels able to ask for support) Suicide Risk Level Comments: Risk Factors Assessment Male: No : Yes Do You Have Access To A Gun?: Yes (But locked in safe) Health Problems: No Mental Health Diagnoses: Yes Substance Use Disorders: No Previous Attempt: Yes Family History of Suicide: Yes Previous Psychiatric Hospitalization: Yes Hopelessness: No Protective Factors Assessment Hindu Beliefs: No : Yes Responsible for Young Children: Yes 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 Chief Complaint "I think I'm pretty ready to go back home". Review of Systems Sleep Information Total Hours of Sleep: 7 Sleep Comments: HS Trazadone Meal Information Percent Meal Consumed - Breakfast: 100 Percent Meal Consumed - Lunch: 100 Percent Meal Consumed - Dinner: 100 Subjective Subjective Patient was seen & assessed and interval progress reviewed with nursing. Reports that she initially was upset about a BPD diagnosis, however after having some time to process it is able to admit to herself that it feels appropriate. Is able to identify that initial rejection of diagnosis was due to fear of being abandoned by when she told it to him (describes as being supportive when she spoke to him). Is now feeling more hopeful as she feels it encompasses much of her internal struggles and can be a focus of her outside therapeutic treatment. Is not sure if naltrexone is having effect or not, will continue to monitor. Denies acutely depressed mood, does report some anxiety but much of this relates to work-related anxiety and she is confident she can work through it. Also reports missing her child and is eager to return home to him. 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 Visible in the milieu - interacting with peers and staff appropriately, participating in groups. Tolerating medication well, denies side effects - no [nausea][/diarrhea]/[lightheadedness][/akathisia]/[EPS][/excessive sedation]. Physical Exam Mental Examination Appearance: Well Groomed Eye Contact: Fleeting Contact Motor Behavior: Unremarkable Speech: Soft Mood: Depressed, Anxious and Sad Affect: Anxious, Flat, Sad and Withdrawn Thought Process: Intact Hallucinations: None Insight: Fair Judgement: Poor Psychiatric Orientation: alert and oriented x 3 Apperance: appropriately dressed and appropriately groomed Eye Contact: good eye contact Motor Behavior: no abnormal motor movements Speech: normal rate/rhythm/volume of speech Affect: + anxious affect and + constricted affect Mood: + depressed mood (low rather than depressed and improving) and + anxious mood Thought Process: goal directed thought process Thought Content: reality based without delusions Suicidal Thoughts: denies suicidal thoughts (intermittent thoughts ), denies suicidal plan and denies suicidal intent Homicidal Thoughts: denies homicidal thoughts Hallucinations: no auditory hallucinations and no visual hallucinations Cognition: recent memory grossly intact, remote memory grossly intact, attention grossly intact and language grossly intact Estimated Intelligence: consistent with education level Insight: + fair insight Judgment: + fair judgement Vital Signs (Past 24 Hours) Last Vital Signs Temp 36.8 C 02/28/24 06:26 Pulse 106 H 02/28/24 06:27 Resp 16 02/28/24 06:26 BP 109/63 02/28/24 06:27 Pulse Ox 100 02/27/24 03:40 O2 Del Method Room Air 02/27/24 03:40 A physical exam was performed in the ED by Samra Cardoza for the purposes of medical clearance. I accept that physical as correct and adequate for the purposes of the inpatient physical exam. Results & Data ([facility]) Current Inpatient Medications Current Inpatient Medications: Current Inpatient Medications Acetaminophen (Acetaminophen 325 Mg Tab) 650 mg PO Q4H PRN PRN Reason: Headache or Minor Fever Stop: 03/26/24 19:55 Last Admin: 02/27/24 18:13 Dose: 650 mg Al Hydrox/Mg Hydrox/Simethicone (Aluminum/Magnesium Susp 30 Ml Udc) 30 ml PO Q4H PRN PRN Reason: GI Upset Stop: 03/26/24 19:55 Bismuth Subsalicylate (Bismuth Subsalicylate 262 Mg Chew) 2 tab PO Q30M PRN PRN Reason: Loose Stool/Diarrhea Stop: 03/27/24 08:59 Bupropion HCl (Bupropion Xl 150 Mg Tabcr) 150 mg PO QAM FARIBA Stop: 03/28/24 08:59 Last Admin: 02/28/24 09:08 Dose: 150 mg Cephalexin HCl (Cephalexin 500 Mg Cap) 500 mg PO Q6H FARIBA; Protocol Stop: 03/04/24 08:59 Last Admin: 02/28/24 20:50 Dose: 500 mg Duloxetine HCl (Duloxetine Hcl 60 Mg Cap) 60 mg PO QAM FARIBA Stop: 03/27/24 13:29 Last Admin: 02/28/24 09:08 Dose: 60 mg Duloxetine HCl (Duloxetine Hcl 20 Mg Cap) 40 mg PO QAM FARIBA Stop: 03/27/24 13:29 Last Admin: 02/28/24 09:08 Dose: 40 mg Hydroxyzine HCl (Hydroxyzine Hcl 25 Mg Tab) 50 mg PO HSZ PRN PRN Reason: Insomnia Stop: 03/26/24 19:55 Last Admin: 02/25/24 23:30 Dose: 50 mg Hydroxyzine HCl (Hydroxyzine Hcl 25 Mg Tab) 25 mg PO Q4H PRN PRN Reason: Anxiety Stop: 03/26/24 19:55 Magnesium Hydroxide (Magnesium Hydroxide Susp 30 Ml Udc) 30 ml PO DAILY PRN PRN Reason: Constipation Stop: 03/26/24 19:55 Naltrexone HCl (Naltrexone Hcl 50 Mg Tab) 50 mg PO DAILYBD [facility] Stop: 03/27/24 17:14 Last Admin: 02/28/24 17:48 Dose: 50 mg Pantoprazole Sodium (Pantoprazole 40 Mg Tab) 40 mg PO BID FARIBA Stop: 03/27/24 20:59 Last Admin: 02/28/24 20:49 Dose: 40 mg Propranolol HCl (Propranolol Hcl 10 Mg Tab) 10 mg PO BID PRN PRN Reason: Anxiety Stop: 03/27/24 20:59 Sodium Chloride (Sodium Chloride 0.65% Na Soln 45 Ml ([place])) 1 - 2 sprays NA PRN PRN PRN Reason: Nasal Dryness/Congestion Stop: 03/26/24 19:55 Trazodone HCl (Trazodone Hcl 100 Mg Tab) 100 mg PO HS FARIBA Stop: 03/28/24 21:59 Last Admin: 02/28/24 20:50 Dose: 100 mg Mental Health & Subst Abuse Tx Psychiatrist Name of Psychiatrist: Martine Mendoza Psychiatrist's Date Of Appointment With Psychiatric Provider: 03/22/24 11:10 Therapist Name of Therapist: Dr. Thor Spivey, [place] [facility] Therapist's Date of Therapist Appointment: 03/01/24 Time of Therapist Appointment: 1:00pm Fiberline Supervisor Name of Fiberline Supervisor: None Post Discharge Appointments Primary Care Physician Name Of Family Doctor/PCP: Dr. Ascencion Berry Date of Future Appointment with PCP: 08/16/24 10:40 (1) Depression Depression Type: unspecified Qualified Code(s): F32.A - Depression, unspecified
[2024-02-29 03:41] VITALS: TEMP 97.9; O2SAT 98
--- NOTE | 2024-02-29 11:43 | Discharge Summary ---
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 She has presented to the emergency department multiple times in December and January (5th presentation was yesterday) for self-harm lacerations to her legs and arms requiring sutures. She was at work and started to have intense anxiety with symptoms of tunnel vision, ears ringing, shortness of breath forcing her to leave work and once at home she was alone in the house and cut her arm in two places with a razor. She ended up getting more deeply then she intended and had to come to the hospital to get sutures. She describes the self-harm urges as intense and unbearable, and expresses concern about how inpatient treatment will be helpful when she returns home to her stressors. She's been self-harming "pretty much" daily though in the last week tried to self-harm less after requiring sutures and antibiotics from an episode last week. Has come to the hospital if she can't stop the bleeding or steri-strip on her own. Typically self-harms at night once her son is asleep. She notes at this point there is a significant urge and habit to harm. She reports engaging in self-harm behaviors daily, primarily at night using a razor on her arm. She has participated in the intensive outpatient program via [facility] previously and learned DBT skills and she's started attending their alumni DBT skill and compassion group meetings again to try to practice these skills again. She found that the DBT skills helped reduce her self-harm behaviors at that time when doing the IOP, but has struggled to maintain use of those skills with her current responsibilities and stressors. Her mood has been more stable since starting Wellbutrin one month ago, but she continues to struggle with increased anxiety recently. Sleep has been poor, only slept 5 hours last night. She has been Cymbalta and Wellbutrin for depression, as and she feels her mood has improved though she continues to have anxiety and chronic intermittent SI. She has also been taking Vistaril as needed for anxiety and sleep, but finds this isn't really helpful. She feels her general mood and depression has been ok. Wellbutrin was started a month ago and seems to be helping. Her anxiety has been more difficult recently but it seemed to be increasing even prior to initiation of Wellbutrin. She endorses symptoms of panic attacks which have started recently including intense anxiety, facial and hand numbness, tunnel vision, difficulty breathing, racing heart, and sense of doom. She is currently prescribed psychiatric medications of duloxetine 100mg daily (seems to helping), Wellbutrin XL 150mg (started about a month ago, seemed to help a bit with depression, helped with sexual interest) and Vistaril 25mg prn for anxiety (typically takes to help with sleep, doesn't find it very effective). Psychiatric ROS notable for no current nor history of symptoms of morgan, psychosis, OCD nor eating disorder. Physical Exam Psychiatric Orientation: alert and oriented x 3 Apperance: appropriately dressed and appropriately groomed Eye Contact: good eye contact Motor Behavior: no abnormal motor movements Speech: normal rate/rhythm/volume of speech Affect: euthymic affect and mood congruent with affect Thought Process: goal directed thought process Thought Content: reality based without delusions Suicidal Thoughts: denies suicidal thoughts, denies suicidal plan and denies suicidal intent Homicidal Thoughts: denies homicidal thoughts Hallucinations: no auditory hallucinations and no visual hallucinations Cognition: recent memory grossly intact, remote memory grossly intact, attention grossly intact and language grossly intact Estimated Intelligence: consistent with education level Insight: + fair insight Judgment: + fair judgement Vital Signs (Past 24 Hours) Last Vital Signs Temp 36.6 C 02/29/24 03:40 Pulse 82 02/29/24 03:40 Resp 16 02/29/24 03:40 BP 111/77 02/29/24 03:40 Pulse Ox 98 02/29/24 03:40 O2 Del Method Room Air 02/29/24 03:40 A physical exam was performed in the ED by Samra Cardoza for the purposes of medical clearance. I accept that physical as correct and adequate for the purposes of the inpatient physical exam. Principal Diagnosis Borderline Personality Disorder Psychiatric Data See daily stay summary. In short, safety was maintained and the patient was cooperative with care. Medication changes included starting trazodone, naltrexone and propranolol and they tolerated this well. A safety plan was completed prior to discharge. Day of Discharge Assessment Today the patient voices readiness for discharge. They note improvement in mood and deny thoughts to harm self or others. 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 Also reports that she can tell the naltrexone starting to noticeable improve thoughts about self harm and feels good about this. Thoughts remain organized and they are improved from admission. There is no evidence of psychosis. They agree to take mediations as prescribed and keep follow-up appointments. They are stable for discharge to outpatient level of care. Transition of Care Transition Of Care Record: was reviewed with the patient Advance Directives Advance Directives Information Provided: Yes Advance Directives: No Mental Health Advance Directive: No Advance Directives on File: No Living Will: No Power of Construction Materials Tester: No Advance Directives Reason:: Declines as Mental Health Visit. 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) Stable Relationships: Yes Supportive Family: Yes Good Rapport with Provider: Yes Tobacco Cessation at Discharge Tobacco Cessation Medication Prescribed at Discharge: Not Applicable/Non-Smoker Total Time Total Time Spent: Greater Than 30 Minutes Total Time Includes: Examination of the patient, Discharge Planning, Medication Reconciliation and As well as (documentation) Discharge Data Lab Results 02/25/24 02/25/24 15:03 15:11 WBC 9.27 RBC 4.44 Hgb 13.1 Hct 38.9 MCV 87.6 MCH 29.5 MCHC 33.7 RDW Std Deviation 40.5 RDW Coeff of Deng 12.7 Plt Count 293 MPV 9.6 Immature Gran % (Auto) 0.2 Neut % (Auto) 66.8 Lymph % (Auto) 20.1 [place] % (Auto) 7.1 Eos % (Auto) 5.2 Baso % (Auto) 0.6 Neut # (Auto) 6.19 Lymph # (Auto) 1.86 [place] # (Auto) 0.66 H Eos # (Auto) 0.48 Baso # (Auto) 0.06 Immature Gran # (Auto) 0.02 Sodium 136 Potassium 3.7 Chloride 103 Carbon Dioxide 24 Anion Gap 9 BUN 9 Creatinine 0.66 Est Cr Clr Drug Dosing 176.6 eGFR 120.20 BUN/Creatinine Ratio 13.6 Glucose 91 Calcium 9.2 Total Bilirubin 0.3 AST 32 ALT 24 Alkaline Phosphatase 77 Total Protein 7.7 Albumin 4.5 Globulin 3.2 Albumin/Globulin Ratio 1.4 TSH 1.900 Urine Color Yellow Urine Appearance Clear Urine pH 7.0 Ur Specific [place] 1.005 Urine Protein Negative Urine Glucose (UA) Negative Urine Ketones Negative Urine Blood Negative Urine Nitrite Negative Urine Bilirubin Negative Urine Urobilinogen Negative Ur Leukocyte Esterase 3+ H Urine WBC (Auto) 11-20 H Urine RBC (Auto) 0-2 U Hyaline Cast (Auto) 0-2 U Epithel Cells (Auto) 3-5 H Urine Bacteria (Auto) None Seen Urine Test Negative Salicylates < 3.0 L Urine Opiates Screen Neg Ur Methadone, Qual Neg Urine Fentanyl Screen Neg Acetaminophen < 3 L Urine Barbiturates Neg Ur Phencyclidine (PCP) Neg U Amphetamin/Meth Scrn Neg MDMA (Ecstasy) Screen Neg U Benzodiazepines Scrn Neg Ur Cocaine Metabolite Neg U Marijuana (THC) Screen Neg Ethyl Alcohol mg/dL < 10.0 SARS-CoV-2, RNA, NAAT NEGATIVE Hospital Course (1) Depression: (2) Intentional self-harm by razor blade: (3) Laceration: (4) Generalized anxiety disorder with panic attacks: (5) Borderline personality disorder in adult: Plan 02/29/2024: - No changes to plan. - Discharge home 02/28/2024: - No changes to plan. 02/27/2024: -Increase trazodone to 100mg HS -Continue other medications and tx plan. 02/26/2024: The patient was admitted to the [facility] ([facility] inpatient mental health unit) on q15 min checks (behavioral with suicide precautions) for safety. The patient will participate in group, recreational, and milieu therapies and will be offered additional individual and family sessions as clinically appropriate. -Medications: * start trazodone 50mg HS and 50mg HS prn insomnia * start naltrexone 50mg daily dinner * start propranolol 10mg BID prn * continue duloxetine 100mg daily * continue Wellbutrin XL 150mg daily -Provided with Jesus BPD screening tool Mental Health & Subst Abuse Tx Psychiatrist Name of Psychiatrist: Martine Mendoza Psychiatrist's Date Of Appointment With Psychiatric Provider: 03/22/24 11:10 Therapist Name of Therapist: Dr. Thor Spivey, [place] [facility] Therapist's Date of Therapist Appointment: 03/01/24 Time of Therapist Appointment: 1:00pm Life Specialist Name of Life Specialist: None Post Discharge Appointments Primary Care Physician Name Of Family Doctor/PCP: Dr. Ascencion Berry Date of Future Appointment with PCP: 08/16/24 10:40 Smoking Cessation Counseling Tobacco Cessation Medication Prescribed at Discharge: Not Applicable/Non-Smoker Discharge Plan Discharge Items Patient Disposition: Home - Self-Care Reason For Visit: UNSPECIFIED DEPRESSIVE DISORDER Discharge Diagnosis: Borderline Personality Disorder Generalized Anxiety Disorder with Panic Attacks Condition on Discharge: Good Health Concerns: None Activity: Resume your previous activity Non-emergency contact: Primary Care Provider and Psychiatrist Call non-emergency contact if: you have any medication questions and your symptoms worsen Follow-up/Referrals: Ascencion Berry, DO [Primary Care Provider] - Diet: Regular Addtl Attending Provider Instructions: SPECIAL CARE INSTRUCTIONS: 1. Follow through with your scheduled aftercare appointments. If unable to keep an appointment, please call to reschedule. 2. Take your medication only as prescribed. Medication should not be changed or stopped without the approval of your doctor. In the event of worsening symptoms or concerns about side effects, contact your doctor immediately. 3. Utilize new healthy coping skills, anger management skills, and stress management skills learned during your hospitalization. Journal feelings and process them with a support person. Identify stressors or situations that may result in relapse, deterioration or inappropriate behaviors and develop a plan to deal with those issues. 4. If your coping skills are ineffective and you are in crisis, contact your outpatient providers for direction. If unable to reach your providers, please call the [facility] CRISIS LINE AT , go to the [facility] walk-in center at [address], [address], [place], or go to the closest Emergency Room. 5. Avoid alcohol and un-prescribed drugs. 6. You have been provided with the Mental Health Advance Directives Pamphlet for your review. 7. Your condition is stable for discharge to outpatient level of care, but recovery is an ongoing process. Ifthoughts to harm yourself or others return, follow the safety plan developed during your stay. Planning for a safe return home includes securing weapons. Our treatment team recommends weaponsbe removed from the home until your outpatient provider reassesses your progress. In rare cases where the items themselvescannot be removed, guns and ammunitionshould be secured separatelyand keys stored by a reliable personoutside of the home. If you were admitted on an involuntary commitment, the police or other legal authorities may be involved in this process. AFTERCARE APPOINTMENTS: * Please call your insurance company prior to your scheduled appointment to confirm your aftercare providers are covered. Take your insurance information to your appointments. WHO TO CALL AND WHEN: Medical Emergencies: For questions or emergencies related to your hospital stay, please contact the Inpatient Behavioral Health Unit at [phone]. A campus rep is on-call 16/12 for the Behavioral Health Unit for emergencies At any time you feel your situation is an emergency, you may also call 911 immediately. Pending Studies at Discharge: No Stand-Alone Forms: My [facility], Smoking Cessation Medications and DC Order Prescriptions: New pantoprazole 40 mg Tablet,Delayed Release (Dr/Ec) 40 mg PO BID Qty: 60 0RF bupropion HCl 150 mg Tablet Extended Release 24 Hr 150 mg PO QAM Qty: 30 0RF duloxetine [Cymbalta] 20 mg Capsule,Delayed Release(Dr/Ec) 40 mg PO QAM Qty: 30 0RF duloxetine 60 mg Capsule,Delayed Release(Dr/Ec) 60 mg PO QAM Qty: 30 0RF propranolol 10 mg tablet 10 mg PO BID PRN (Reason: anxiety) Qty: 60 0RF trazodone 50 mg tablet See Rx Instructions .ROUTE .COMPLEX PRN (Reason: sleep) Qty: 45 0RF Rx Instructions: take 1 to 1.5 tabs at bedtime as needed for sleep naltrexone 50 mg tablet 50 mg PO DAILY Qty: 30 0RF Continued hydroxyzine HCl 25 mg Tablet 25 mg PO Q4H PRN (Reason: anxiety) Qty: 10 0RF Discontinued bupropion HCl [Wellbutrin XL] 150 mg tablet extended release 24 hr 150 mg PO QAM omeprazole 40 mg capsule,delayed release(DR/EC) 40 mg PO BID duloxetine [Cymbalta] 20 mg capsule,delayed release(DR/EC) 40 mg PO QAM cephalexin 500 mg capsule 500 mg PO Q6H 7 Days Qty: 28 0RF duloxetine [Cymbalta] 60 mg capsule,delayed release(DR/EC) 60 mg PO QAM Rx Instructions: take with 40 mg duloxetine ( 20 mg x 2) for total dose of 100 mg Discharge Orders: Discharge Order (Routine); Ordered 02/29/24 Ordered By: Doris Dye Admission Data Admit Date/Time: 02/25/24 19:56 Attending Provider: Doris Dye Admit Provider: Tania Persaud Primary Care Provider: Ascencion Berry Other Interventions: Discharge Summary Assessment (RN) Last Done: 02/29/24 12:01 PSY Interdisciplinary Discharge Planning Last Done: 02/29/24 12:39 Coding Level of Care Code 03135 D/C day mgmt > 30 min Diagnoses Depression F32.A Depression Type: unspecified Intentional self-harm by razor blade X78.8XXA Laceration Generalized anxiety disorder with panic attacks F41.1; F41.0 Borderline personality disorder in adult F60.3
[2024-02-29 12:37] VITALS: BP 133/78; PULSE 88
== END 2024-02-29 13:25 | disposition home or self-care (01) | DRG 876 ==
LOC: ED 14:47 → SUATTDRO 19:56 → 3S 19:56